=== PATIENT | male | born 1945 | race Hispanic/Latino ===

== ENCOUNTER 2017-12-18 15:17 | Emergency (ER) | payer OTHER ==
--- OUTSIDE RECORDS SUMMARY | 2017-12-18 15:19 | XMS REPORT | Clinical Summary ---
:1945 Author Organization [facility] Address [address] [place] [address] Phone Care Team Providers Name Role Phone Unavailable Primary Care Provider Unavailable Allergies No Known Allergies Current Medications Prescription Sig. Disp. Refills Start Date End Date Status metoprolol (TOPROL-XL) Take 50 mg Active 50 MG 24 hr tablet by mouth daily. omeprazole (PRILOSEC) Take 20 mg Active 20 MG by mouth capsuleIndications: daily. gastroesophageal reflux disease aspirin 81 MG EC Take 1 90 tablet 3 07/16/2017 Active tablet tablet (81 9 mg total) by mouth daily. atorvastatin (LIPITOR) Take 1 90 tablet 3 07/15/2017 Active 80 MG tablet tablet (80 9 mg total) by mouth nightly. metoprolol (TOPROL-XL) Take 1 90 tablet 3 07/16/2017 Active 50 MG 24 hr tablet tablet (50 9 mg total) by mouth daily. amoxicillin (AMOXIL) Take 500 mg 07/06/2017 Discontinued 500 MG by mouth 3 8 capsuleIndications: (three) Upper Respiratory times daily. Infection LORazepam (ATIVAN) 1 Take 1 mg by Discontinued MG tablet mouth every 8 6 (six) hours as needed for Anxiety. Active Problems Problem Noted Date TIA (transient ischemic attack) 07/12/2017 Encounters Date Type Specialty Care Team Description 07/12/2017 - Hospital Encounter Intensive Care Lazaridis, Cerebrovascular accident 07/15/2017 MD Jesus (CVA), unspecified mechanism (HCC);Hyperlipidemia, unspecified hyperlipidemia type;Essential hypertension;Received tissue plasminogen activator (t-PA) less than 24 hours prior to arrival after 12/17/2016 Immunizations Name Dates Previously Given Next Due Influenza High Dose Preservative Free IM 07/15/2017 Social History Tobacco Use Types Packs/Day Years Used Date Never Smoker Smokeless Tobacco: Never Used Tobacco Cessation: Counseling Given: No Alcohol Use Drinks/Week oz/Week Comments No Stopped drinking beer 4 years ago Sex Assigned at Date Recorded Not on file Last Filed Vital Signs Vital Sign Reading Time Taken Blood Pressure 156/83 07/15/2017 12:12 PM PRINCIPAL TRAINER Pulse 97 07/15/2017 2:10 PM PRINCIPAL TRAINER Temperature 36.3 C (97.4 F) 07/15/2017 12:12 PM PRINCIPAL TRAINER Respiratory Rate 20 07/15/2017 2:10 PM PRINCIPAL TRAINER Oxygen Saturation 96% 07/15/2017 2:10 PM PRINCIPAL TRAINER Inhaled Oxygen Concentration - - Weight 70.1 kg (154 lb 8.7 oz) 07/12/2017 11:15 AM PRINCIPAL TRAINER Height 167.6 cm (5' 6") 07/12/2017 11:15 AM PRINCIPAL TRAINER Body Mass Index 24.94 07/12/2017 11:15 AM PRINCIPAL TRAINER Plan of Treatment Not on file Results RHYTHM STRIP - SCAN (07/18/2017 1:31 PM)CBC with platelet count + automated diff (07/15/2017 3:57 AM)Only the most recent of4 resultswithin the time period is included. Component Value Ref Range WBC 5.9 3.5 - 10.5 K/L RBC 4.99 4.63 - 6.08 M/L Hemoglobin 14.0 13.7 - 17.5 GM/DL Hematocrit 42.2 40.1 - 51.0 % MCV 84.6 79.0 - 92.2 fL MCH 28.1 25.7 - 32.2 pg MCHC 33.2 32.3 - 36.5 GM/DL RDW 13.6 11.6 - 14.4 % Platelets 235 150 - 450 K/CU MM MPV 10.0 9.4 - 12.4 fL nRBC 0 0 - 0 /100 WBC % Neutros 49 % % Lymphs 36 % % Monos 8 % % Eos 6 % % Baso 1 % # Neutros 2.89 1.78 - 5.38 K/L # Lymphs 2.13 1.32 - 3.57 K/L # Monos 0.47 0.30 - 0.82 K/L # Eos 0.37 0.04 - 0.54 K/L # Baso 0.05 0.01 - 0.08 K/L Immature Granulocytes-Relative 0 0 - 1 % Specimen Performing Laboratory Blood [facility] [address] [place] [address] CBC with platelet count + automated diff (07/15/2017 3:57 AM)Only the most recent of4 resultswithin the time period is included. Specimen Performing Laboratory Blood Narrative The following orders were created for panel order CBC with platelet count + automated diff. Procedure Abnormality Status --------- ------ CBC with platelet count ...[[id number]]Final result Please view results for these tests on the individual orders. Basic Metabolic Panel (07/15/2017 3:57 AM)Only the most recent of4 resultswithin the time period is included. Component Value Ref Range Sodium 138 136 - 145 meq/L Potassium 4.0 3.5 - 5.1 meq/L Chloride 104 98 - 107 meq/L CO2 25 22 - 29 meq/L BUN 15 7 - 21 mg/dL Creatinine 0.99 0.57 - 1.25 mg/dL Glucose 111 (H) 70 - 105 mg/dL Calcium 9.3 8.4 - 10.2 mg/dL EGFR Comment: INSUFFICIENT CLINICAL DATA TO CALCULATE mL/min/1.73 sq m ESTIMATED GFR. Specimen Performing Laboratory Blood [address] [address] MR brain without IV contrast (07/14/2017 12:15 PM) Specimen Performing Laboratory [facility] Narrative FINAL REPORT MRI Brain without contrast Clinical History: Stroke Technique: MRI of the brain utilizing axial T2, FLAIR, GRE, DWI; sagittal and coronal T1-weighted images. Comparisons: CT 07/13/2017 Findings: There is no evidence of acute infarct or hemorrhage. 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 There is mild to moderate periventricular and subcortical white matter T2 hyperintensity, which is nonspecific but compatible with chronic microvascular ischemic change. There is generalized parenchymal volume loss without hydrocephalus, midline shift, or apparent mass effect. There are no extra-axial fluid collections. The craniocervical junction is preserved. The major intracranial flow-voids appear patent. There is acute on chronic left greater than right maxillary sinusitis. IMPRESSION: No evidence of acute infarct, hemorrhage, or hydrocephalus. Chronic left caudate lacunar infarct. Chronic microvascular ischemic disease with generalized parenchymal volume loss. Signed: Malaika Bergman MD Report Verified Date/Time:07/15/2017 07:45:58 Reading Location: [address] Neuro Reading Room Procedure Note Interface, External Ris In - 07/15/2017 7:48 AM PRINCIPAL TRAINER FINAL REPORT MRI Brain without contrast Clinical History: Stroke Technique: MRI of the brain utilizing axial T2, FLAIR, GRE, DWI; sagittal and coronal T1-weighted images. Comparisons: CT 07/13/2017 Findings: There is no evidence of acute infarct or hemorrhage. 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 There is mild to moderate periventricular and subcortical white matter T2 hyperintensity, which is nonspecific but compatible with chronic microvascular ischemic change. There is generalized parenchymal volume loss without hydrocephalus, midline shift, or apparent mass effect. There are no extra-axial fluid collections. The craniocervical junction is preserved. The major intracranial flow-voids appear patent. There is acute on chronic left greater than right maxillary sinusitis. IMPRESSION: No evidence of acute infarct, hemorrhage, or hydrocephalus. Chronic left caudate lacunar infarct. Chronic microvascular ischemic disease with generalized parenchymal volume loss. Signed: Malaika Bergman MD Report Verified Date/Time: 07/15/2017 07:45:58 Reading Location: [address] Neuro Reading Room MRA neck without contrast (07/14/2017 12:15 PM) Specimen Performing Laboratory [facility] [place] [facility] Narrative FINAL REPORT MRA Head CLINICAL HISTORY: Stroke TECHNIQUE: MRA of the head utilizing 3-D nkzo-ju-pmaayp technique, with 3-D reconstructions. COMPARISON: None FINDINGS: There is no evidence of intracranial aneurysm, critical stenosis, or major branch vessel occlusion. IMPRESSION: No evidence for a major [place] proximal branch vessel occlusion. MRA Neck CLINICAL HISTORY: Stroke TECHNIQUE: MRA of the neck utilizing 2-D and 3-D kujt-yq-yssmrg technique, with 3-D reconstructions. COMPARISON: None FINDINGS: The carotid arteries in the neck are patent including their bifurcations. There is antegrade flow in the vertebral arteries in the neck. IMPRESSION: No evidence of hemodynamically significant stenosis in the cervical carotid or vertebral arteries by NASCET criteria. Signed: Malaika Bergman MD Report Verified Date/Time:07/14/2017 13:30:39 Reading Location: [address] Neuro Reading Room Procedure Note Interface, External Ris In - 07/14/2017 1:32 PM PRINCIPAL TRAINER FINAL REPORT MRA Head CLINICAL HISTORY: Stroke TECHNIQUE: MRA of the head utilizing 3-D lhkj-ku-ooaekk technique, with 3-D reconstructions. COMPARISON: None FINDINGS: There is no evidence of intracranial aneurysm, critical stenosis, or major branch vessel occlusion. IMPRESSION: No evidence for a major [place] proximal branch vessel occlusion. MRA Neck CLINICAL HISTORY: Stroke TECHNIQUE: MRA of the neck utilizing 2-D and 3-D sedy-ph-nmqbuz technique, with 3-D reconstructions. COMPARISON: None FINDINGS: The carotid arteries in the neck are patent including their bifurcations. There is antegrade flow in the vertebral arteries in the neck. IMPRESSION: No evidence of hemodynamically significant stenosis in the cervical carotid or vertebral arteries by NASCET criteria. Signed: Malaika Bergman MD Report Verified Date/Time: 07/14/2017 13:30:39 Reading Location: [address] Neuro Reading Room MRA head without contrast (07/14/2017 12:15 PM) Specimen Performing Laboratory [facility] Narrative FINAL REPORT MRA Head CLINICAL HISTORY: Stroke TECHNIQUE: MRA of the head utilizing 3-D zrly-pd-vsgakm technique, with 3-D reconstructions. COMPARISON: None FINDINGS: There is no evidence of intracranial aneurysm, critical stenosis, or major branch vessel occlusion. IMPRESSION: No evidence for a major [place] proximal branch vessel occlusion. MRA Neck CLINICAL HISTORY: Stroke TECHNIQUE: MRA of the neck utilizing 2-D and 3-D iuro-er-ovenmf technique, with 3-D reconstructions. COMPARISON: None FINDINGS: The carotid arteries in the neck are patent including their bifurcations. There is antegrade flow in the vertebral arteries in the neck. IMPRESSION: No evidence of hemodynamically significant stenosis in the cervical carotid or vertebral arteries by NASCET criteria. Signed: Malaika Bergman MD Report Verified Date/Time:07/14/2017 13:30:39 Reading Location: [address] Neuro Reading Room Procedure Note Interface, External Ris In - 07/14/2017 1:32 PM PRINCIPAL TRAINER FINAL REPORT MRA Head CLINICAL HISTORY: Stroke TECHNIQUE: MRA of the head utilizing 3-D dxpt-ai-axheyn technique, with 3-D reconstructions. COMPARISON: None FINDINGS: There is no evidence of intracranial aneurysm, critical stenosis, or major branch vessel occlusion. IMPRESSION: No evidence for a major [place] proximal branch vessel occlusion. MRA Neck CLINICAL HISTORY: Stroke TECHNIQUE: MRA of the neck utilizing 2-D and 3-D lnzs-dy-vqmcep technique, with 3-D reconstructions. COMPARISON: None FINDINGS: The carotid arteries in the neck are patent including their bifurcations. There is antegrade flow in the vertebral arteries in the neck. IMPRESSION: No evidence of hemodynamically significant stenosis in the cervical carotid or vertebral arteries by NASCET criteria. Signed: Malaika Bergman MD Report Verified Date/Time: 07/14/2017 13:30:39 Reading Location: [address] Neuro Reading Room brain without IV contrast portable (07/13/2017 7:44 PM) Specimen Performing Laboratory [place] [facility] [place] Narrative FINAL REPORT CT head without contrast INDICATION: 24 hours post tPA. TECHNIQUE: Axial noncontrast CT images through the head were obtained. This exam was performed according to our departmental dose optimization program which includes automated exposure control, adjustment of the mA and/or kV according to patient size and/or use of iterative reconstruction technique. COMPARISON: None available FINDINGS: There is no hematoma, extra-axial collection, or mass effect. Small volume left centrum semiovale and looney radiata microvascular ischemia is potentially recent superimposed on other chronic appearing microvascular changes. No acute territorial infarct is evident on CT. Please note that CT is insensitive for early or small infarcts. Generalized volume loss and vascular calcifications are noted. There is no hydrocephalus or midline shift. There is multifocal sinus mucosal disease with maxillary and right frontal sinus air-fluid levels. The mastoid air cells are well aerated. The globes appear proptotic. The calvarium is intact. IMPRESSION: No evident acute intracranial hemorrhage post tPA. Left looney radiata and striatocapsular microvascular ischemia, potentially recent, superimposed on chronic appearing microvascular disease. Advise MRI there is no contraindication. Findings suggesting acute on chronic multifocal sinusitis. Additional chronic and involutional findings as discussed. Signed: Bharat Batres MD Report Verified Date/Time:07/13/2017 20:35:58 Reading Location: [facility] Radiology Reading Room Procedure Note Interface, External Ris In - 07/13/2017 8:38 PM PRINCIPAL TRAINER FINAL REPORT CT head without contrast INDICATION: 24 hours post tPA. TECHNIQUE: Axial noncontrast CT images through the head were obtained. This exam was performed according to our departmental dose optimization program which includes automated exposure control, adjustment of the mA and/or kV according to patient size and/or use of iterative reconstruction technique. COMPARISON: None available FINDINGS: There is no hematoma, extra-axial collection, or mass effect. Small volume left centrum semiovale and looney radiata microvascular ischemia is potentially recent superimposed on other chronic appearing microvascular changes. No acute territorial infarct is evident on CT. Please note that CT is insensitive for early or small infarcts. Generalized volume loss and vascular calcifications are noted. There is no hydrocephalus or midline shift. There is multifocal sinus mucosal disease with maxillary and right frontal sinus air-fluid levels. The mastoid air cells are well aerated. The globes appear proptotic. The calvarium is intact. IMPRESSION: No evident acute intracranial hemorrhage post tPA. Left looney radiata and striatocapsular microvascular ischemia, potentially recent, superimposed on chronic appearing microvascular disease. Advise MRI there is no contraindication. Findings suggesting acute on chronic multifocal sinusitis. Additional chronic and involutional findings as discussed. Signed: Bharat Batres MD Report Verified Date/Time: 07/13/2017 20:35:58 Reading Location: [facility] Radiology Reading Room Vitamin B12 and Folate (07/13/2017 3:48 AM) Component Value Ref Range Vitamin B12 391 213 - 816 pg/mL Folate 15.4 >=7.0 ng/mL Specimen Performing Laboratory Blood [address] [address] Troponin I (07/13/2017 3:48 AM)Only the most recent of3 resultswithin the time period is included. Component Value Ref Range Troponin I 0.01 0.00 - 0.03 ng/mL Specimen Performing Laboratory Blood [address] [address] Narrative Troponin I (TnI) levels must be interpreted in the context of the presenting symptoms and the clinical findings. Elevated TnI levels indicate myocardial damage, but are not specific for ischemic heart disease. Elevated TnI levels are seen in patients with other cardiac conditions (including myocarditis and congestive heart failure), and slight TnI elevations occur in patients with other conditions, including sepsis, renal failure, acidosis, acute neurological disease, and persistent tachyarrhythmia. Fasting Hemoglobin A1c - Fasting (07/13/2017 3:48 AM) Component Value Ref Range Hemoglobin A1C 5.7 4.3 - 6.1 % Specimen Performing Laboratory Blood [address] [address] Narrative Fasting Fasting lipid panel (07/13/2017 3:48 AM) Component Value Ref Range Triglycerides 150 mg/dL Cholesterol 201 mg/dL HDL 36 mg/dL LDL Calculated 135 mg/dL Specimen Performing Laboratory Blood [address] [address] Narrative Triglyceride Reference Range: Low Risk <150 [id number] High Risk 200-499 Very High Risk>=500 Cholesterol Reference Range: Low Risk <200 [id number] High Risk>240 HDL Cholesterol Reference Range: Low Risk >=60 High Risk <40 LDL Cholesterol Reference Range: Optimal<100 Near Wiazkiz435-451 [id number] Ssad707-309 Very High >=190 Fasting ECHOCARDIOGRAM REPORT - SCAN (07/12/2017 4:34 PM)RPR (07/12/2017 2:21 PM) Component Value Ref Range RPR Nonreactive Nonreactive Specimen Performing Laboratory Blood - Arm, Right [address] [address] aPTT (07/12/2017 2:21 PM) Component Value Ref Range PTT 31.5 22.5 - 36.0 seconds Specimen Performing Laboratory Blood - Arm, [address] [address] Prothrombin time/INR (07/12/2017 2:21 PM) Component Value Ref Range Protime 16.7 (H) 11.7 - 14.7 seconds INR 1.4 <=5.9 Specimen Performing Laboratory Blood - Arm, [address] [address] Narrative RECOMMENDED COUMADIN/WARFARIN INR THERAPY RANGES STANDARD DOSE: 2.0 - 3.0 Includes: PROPHYLAXIS for venous thrombosis, systemic embolization; TREATMENT for venous thrombosis and/or pulmonary embolus. HIGH RISK: Target INR is 2.5-3.5 for patients with mechanical heart valves. Hepatic function panel (07/12/2017 2:21 PM) Component Value Ref Range Protein, Total 8.0 6.0 - 8.3 gm/dL Albumin 4.1 3.5 - 5.0 g/dL Total Bilirubin 0.6 0.2 - 1.2 mg/dL Bilirubin, Direct 0.2 0.1 - 0.5 mg/dL Alkaline Phosphatase 90 40 - 150 U/L AST 36 (H) 5 - 34 U/L ALT 43 6 - 55 U/L Specimen Performing Laboratory Blood - Arm, [address] [address] Transthoracic 2D echo w/ doppler (cw/pw/color) (07/12/2017 1:00 PM) Component Value Ref Range Ejection Fraction Specimen Performing Laboratory [facility] ECHO HEARTLAB MKCKESSON CPACS Narrative Transthoracic Echocardiography Report (TTE) Demographics Patient NameDAMIÁN BOONE Date of Study2017 Male Visit [id number] Unknown Room Number 7514 Number Date of 1945Referring Nathan Villagomez Age 72 year(s)SonographerOscar ANGELES Sorto Plumbing Manager Estephania Baker, Interpreting Hung Banegas Procedure Type of Study TTE procedure:2DECHO W DOPPLER(CW/PW/COLOR) (Routine) Indications:Suspected cardiac source of emboli. Clinical History HGB 13.8 HCT 40.3 % Stroke Hypertension Contrast Medium: Definity. Amount - 2 ml Height: 66 inches Weight: 69.85 kg (154 lbs) BSA: 1.79 m^2 BMI: 24.86 kg/m^2 HR: 80 bpm BP: 171/102 mmHg Summary Global LV systolic function normal . No evidence of LV hypertrophy. LV endocardium is well visualized with IV ultrasound enhancing agent. LA size is normal (16-34 ml/m2) . Grade 1 diastolic dysfunction (impaired relaxation and low-normal LA pressure). IV saline contrast injection demostrates a PFO (patent foramen ovale) at rest and post Valsalva . Estimated peak systolic PA pressure is 30-35 mmHg . The estimated RA pressure by IVC dynamics 0-5mmHg . The right ventricular chamber size and systolic function are within normal limits. Mild aortic regurgitation. Previous Study No prior exam available for comparison. Signature Findings Technical Quality: Technically adequate exam. Rhythm/BPRegular sinus rhythm during the exam. Left Ventricle LV endocardium is well visualized with IV ultrasound enhancing agent. The left ventricle is chamber size (by vol index) is normal (male - LVED vol - 34-74ml/m2). No evidence of LV hypertrophy. All of the LV segments contract normally . Global LV systolic function normal . LVEF by Christopher's method of disk assessment is normal (>60%) . The LVEF was measured using Christopher's bi-plane method of disk . Grade 1 diastolic dysfunction (impaired relaxation and low-normal LA pressure). Left AtriumLA size is normal (16-34 ml/m2) . Right VentricleThe right ventricular chamber size and systolic function are within normal limits. Right Atrium RA cavity size is normal . Atrial SeptumIV saline contrast injection demostrates a PFO (patent foramen ovale) at rest and post Valsalva . Aortic Valve Mild AoV cusp thickening. Mild aortic regurgitation. Mitral Valve Mild MV leaflet thickening. Mild mitral regurgitation. Tricuspid ValveTV structure is normal. Mild tricuspid regurgitation. Estimated peak systolic PA pressure is 30-35 mmHg . Pulmonic Valve Mild pulmonary regurgitation. Normal PV structure appears normal by available views. AortaAortic root size (SInus of Valsalva diameter) is normal . PericardiumNo pericardial effusion is visualized. IVC/SVC/PA/PV/PleuralThe inferior vena cava is partially visualized. The inferior vena cava size is normal . The estimated RA pressure by IVC dynamics 0-5mmHg . Chambers/Structures Left Atrium LA Volume: 52.32 ml LA Area: 18.64 cm^ 2 LA Vol. Index: 29 ml/m^2 Left Ventricle LVIDd: 4.05 cm LVIDs: 2.64 cm LV Septum Diastolic: 1.07 cm LV PW Diastolic: 0.92 cmLV FS: 34.8 % LVEDV Christopher's:88.71 ml LVESV Christopher's:30.03 mlLVEDVI: 50 ml/ m^2 LVEF Christopher's: 66.1 %LVESVI: 17 ml/m^2 LVOT Diameter: 2.11 cm Aorta Ao Root S of Erika.: 2.55 cm Doppler/Quantitative Measurements Mitral Valve MV Peak E-Wave: 0.6 m/s MV Peak A-Wave: 0.78 m/s E/ A Ratio: 0.77 Peak Gradient: 1.46 mmHg Deceleration Time: 228.8 msec MV Doug. Peak: Tissue Doppler E' Lateral Velocity: 0.12 m/s A' Lateral Velocity: 0.14 m/s E/ E': 4.93 Aortic Valve Peak Velocity: 1.14 m/sMean Velocity: 0.84 m/s Peak Gradient: 5.2 mmHgMean Gradient: 3.17 mmHg AV Area (continuity): 3.07 cm^2 AV VTI: 24.3 cm AV DVI: 0.88 LVOT Peak Velocity: 1.02 m/s Peak Gradient: 4.2 mmHg Mean Velocity: 0.7 m/sMean Gradient: 2.21 mmHg LVOT Diameter: 2.11 cmLVOT VTI: 21.37 cm LVOT Area: 3.5 cm^2 LVOT SV:74.69 ml LVOT CO: 5.97 l/min LVOT CI: 3.34 l/min/m^2 Tricuspid Valve TR Velocity: 2.86 m/s TR Gradient: 32.76 mmHg Procedure Note Interface, External Ris In - 07/12/2017 4:00 PM PRINCIPAL TRAINER Transthoracic Echocardiography Report (TTE) Demographics Patient Name DAMIÁN BOONE Date of Study 07/12/2017 Gender Male Visit Number [id number] Race Unknown Room Number 7514 Number Date of 1945 Referring Physician Jesus Villagomez Age 72 year(s) Shuffle Board Operator Tray Sorto, [facility] Plumbing Manager Estephania Baker, Interpreting Lorie Bright [facility] Physician Procedure Type of Study TTE procedure:2DECHO W DOPPLER(CW/PW/COLOR) (Routine) Indications:Suspected cardiac source of emboli. Clinical History HGB 13.8 HCT 40.3 % Stroke Hypertension Contrast Medium: Definity. Amount - 2 ml Height: 66 inches Weight: 69.85 kg (154 lbs) BSA: 1.79 m^2 BMI: 24.86 kg/m^2 HR: 80 bpm BP: 171/102 mmHg Summary Global LV systolic function normal . No evidence of LV hypertrophy. LV endocardium is well visualized with IV ultrasound enhancing agent. LA size is normal (16-34 ml/m2) . Grade 1 diastolic dysfunction (impaired relaxation and low-normal LA pressure). IV saline contrast injection demostrates a PFO (patent foramen ovale) at rest and post Valsalva . Estimated peak systolic PA pressure is 30-35 mmHg . The estimated RA pressure by IVC dynamics 0-5mmHg . The right ventricular chamber size and systolic function are within normal limits. Mild aortic regurgitation. Previous Study No prior exam available for comparison. Signature Findings Technical Quality: Technically adequate exam. Rhythm/BP Regular sinus rhythm during the exam. Left Ventricle LV endocardium is well visualized with IV ultrasound enhancing agent. The left ventricle is chamber size (by vol index) is normal (male - LVED vol - 34-74ml/m2). No evidence of LV hypertrophy. All of the LV segments contract normally . Global LV systolic function normal . LVEF by Christopher's method of disk assessment is normal (>60%) . The LVEF was measured using Christopher's bi-plane method of disk . Grade 1 diastolic dysfunction (impaired relaxation and low-normal LA pressure). Left Atrium LA size is normal (16-34 ml/m2) . Right Ventricle The right ventricular chamber size and systolic function are within normal limits. Right Atrium RA cavity size is normal . Atrial Septum IV saline contrast injection demostrates a PFO (patent foramen ovale) at rest and post Valsalva . Aortic Valve Mild AoV cusp thickening. Mild aortic regurgitation. Mitral Valve Mild MV leaflet thickening. Mild mitral regurgitation. Tricuspid Valve TV structure is normal. Mild tricuspid regurgitation. Estimated peak systolic PA pressure is 30-35 mmHg . Pulmonic Valve Mild pulmonary regurgitation. Normal PV structure appears normal by available views. Aorta Aortic root size (SInus of Valsalva diameter) is normal . Pericardium No pericardial effusion is visualized. IVC/SVC/PA/PV/Pleural The inferior vena cava is partially visualized. The inferior vena cava size is normal . The estimated RA pressure by IVC dynamics 0-5mmHg . Chambers/Structures Left Atrium LA Volume: 52.32 ml LA Area: 18.64 cm^2 LA Vol. Index: 29 ml/m^2 Left Ventricle LVIDd: 4.05 cm LVIDs: 2.64 cm LV Septum Diastolic: 1.07 cm LV PW Diastolic: 0.92 cm LV FS: 34.8 % LVEDV Christopher's:88.71 ml LVESV Christopher's:30.03 ml LVEDVI: 50 ml/m^2 LVEF Christopher's: 66.1 % LVESVI: 17 ml/m^2 LVOT Diameter: 2.11 cm Aorta Ao Root S of Erika.: 2.55 cm Doppler/Quantitative Measurements Mitral Valve MV Peak E-Wave: 0.6 m/s MV Peak A-Wave: 0.78 m/s E/A Ratio: 0.77 Peak Gradient: 1.46 mmHg Deceleration Time: 228.8 msec MV Doug. Peak: Tissue Doppler E' Lateral Velocity: 0.12 m/s A' Lateral Velocity: 0.14 m/s E/E': 4.93 Aortic Valve Peak Velocity: 1.14 m/s Mean Velocity: 0.84 m/s Peak Gradient: 5.2 mmHg Mean Gradient: 3.17 mmHg AV Area (continuity): 3.07 cm^2 AV VTI: 24.3 cm AV DVI: 0.88 LVOT Peak Velocity: 1.02 m/s Peak Gradient: 4.2 mmHg Mean Velocity: 0.7 m/s Mean Gradient: 2.21 mmHg LVOT Diameter: 2.11 cm LVOT VTI: 21.37 cm LVOT Area: 3.5 cm^2 LVOT SV:74.69 ml LVOT CO: 5.97 l/min LVOT CI: 3.34 l/min/m^2 Tricuspid Valve TR Velocity: 2.86 m/s TR Gradient: 32.76 mmHg after 12/17/2016
--- OUTSIDE RECORDS SUMMARY | 2017-12-18 15:20 | XMS REPORT ---
:1945 [facility] Address [address] [place] [address] Dr. S[address]iqu[address] [place] [address] Care Team Providers Name Role Phone JANNIE YUEN Unavailable Unavailable Problems This patient has no known problems. Allergies, Adverse Reactions, Alerts This patient has no known allergies or adverse reactions. Medications This patient has no known medications. Results Test Description Test Time Test Comments Text Results Atomic Results Result Comments MR, BRAIN, 2017-07-15 Reason for FINAL REPORT PATIENT WITHOUT CONTRAST 07:45:00 exam:->StrokeWhat is the ID: [id number] MRI patient's sedation Brain without contrast requirement?->No Sedation Clinical History: Stroke Technique: MRI of the [...] generalized parenchymal volume loss. Signed: Malaika Bergman MDReport Verified Date/Time: 07/15/2017 07:45:58 Reading Location: [facility] B1 C013V Neuro Reading Room C METABOLIC PANEL 2017-07-15 04:59:00 Test Item Value Reference Range Comments SODIUM (BEAKER) (test 138 meq/L 136-145 zzrd=687) POTASSIUM (BEAKER) (test 4.0 meq/L 3.5-5.1 rrcg=449) CHLORIDE (BEAKER) (test 104 meq/L 98-107 phar=198) CO2 (BEAKER) (test kyqz=996) 25 meq/L 22-29 BLOOD UREA NITROGEN (BEAKER) 15 mg/dL 7-21 (test geyi=448) CREATININE (BEAKER) (test 0.99 mg/dL 0.57-1.25 nhab=070) GLUCOSE RANDOM (BEAKER) 111 mg/dL 70-105 (test wsrq=678) CALCIUM (BEAKER) (test 9.3 mg/dL 8.4-10.2 oelr=949) EGFR (BEAKER) (test mL/min/1.73 sq m INSUFFICIENT CLINICAL DATA TO dron=2390) CALCULATE ESTIMATED GFR. CBC W/PLT COUNT & AUTO [id number] 04:37:00 Test Item Value Reference Range Comments WHITE BLOOD CELL COUNT (BEAKER) (test rnxq=564) 5.9 K/ L 3.5-10.5 RED BLOOD CELL COUNT (BEAKER) (test ylct=670) 4.99 M/ L 4.63-6.08 HEMOGLOBIN (BEAKER) (test qebv=236) 14.0 GM/DL 13.7-17.5 HEMATOCRIT (BEAKER) (test vyzj=231) 42.2 % 40.1-51.0 MEAN CORPUSCULAR VOLUME (BEAKER) (test zzcx=360) 84.6 fL 79.0-92.2 MEAN CORPUSCULAR HEMOGLOBIN (BEAKER) (test 28.1 pg 25.7-32.2 tkkd=934) MEAN CORPUSCULAR HEMOGLOBIN CONC (BEAKER) (test 33.2 GM/DL 32.3-36.5 kupp=665) RED CELL DISTRIBUTION WIDTH (BEAKER) (test 13.6 % 11.6-14.4 uiwa=552) PLATELET COUNT (BEAKER) (test dnjd=830) 235 K/CU MM 150-450 MEAN PLATELET VOLUME (BEAKER) (test hmdn=420) 10.0 fL 9.4-12.4 NUCLEATED RED BLOOD CELLS (BEAKER) (test 0 /100 WBC 0-0 jxmv=024) NEUTROPHILS RELATIVE PERCENT (BEAKER) (test 49 % thbc=086) LYMPHOCYTES RELATIVE PERCENT (BEAKER) (test 36 % bbgs=892) MONOCYTES RELATIVE PERCENT (BEAKER) (test 8 % vdin=421) EOSINOPHILS RELATIVE PERCENT (BEAKER) (test 6 % hafx=414) BASOPHILS RELATIVE PERCENT (BEAKER) (test 1 % xoow=565) NEUTROPHILS ABSOLUTE COUNT (BEAKER) (test 2.89 K/ L 1.78-5.38 bvph=792) LYMPHOCYTES ABSOLUTE COUNT (BEAKER) (test 2.13 K/ L 1.32-3.57 aacc=040) MONOCYTES ABSOLUTE COUNT (BEAKER) (test 0.47 K/ L 0.30-0.82 zqis=063) EOSINOPHILS ABSOLUTE COUNT (BEAKER) (test 0.37 K/ L 0.04-0.54 nbzk=583) BASOPHILS ABSOLUTE COUNT (BEAKER) (test 0.05 K/ L 0.01-0.08 hoyv=805) IMMATURE GRANULOCYTES-RELATIVE PERCENT (BEAKER) 0 % 0-1 (test ifci=5102) MR, MRA, BRAIN, WITHOUT [id number] 13:30:00Reason for exam:-> StrokeWhat is the patient's sedation requirement?->No SedationFINAL REPORT MRA Head CLINICAL HISTORY: Stroke TECHNIQUE: MRA of the head utilizing 3-D smyc-tp-kxcdpd technique, with 3-D reconstructions. COMPARISON: None FINDINGS: There is noevidence of intracranial aneurysm, critical stenosis, or major branch vessel occlusion. IMPRESSION: No evidence for a major [place] of [place] proximal branch vessel occlusion. MRA Neck CLINICAL HISTORY: Stroke TECHNIQUE: MRA of the neck utilizing 2-D and 3-D time- of-flight technique, with 3-D reconstructions. COMPARISON: None FINDINGS: The carotid arteries in the neck are patent including their bifurcations. There is antegrade flow in the vertebral arteries in the neck. IMPRESSION: No evidence of hemodynamically significant stenosis in the cervical carotid or vertebral arteries by NASCET criteria. Signed: Malaika Bergman MDReport Verified Date/Time: 07/14/2017 13:30:39 Reading Location: [facility] C013V Neuro Reading Room MR, MRA, NECK, WITHOUT IV [id number] 13:30:00FINAL REPORT MRA Head CLINICAL HISTORY: Stroke TECHNIQUE: MRA of the head utilizing 3-D nnxh-em-vxskbx technique, with 3-D reconstructions. COMPARISON: None FINDINGS: There is noevidence of intracranial aneurysm, critical stenosis, or major branch vessel occlusion. IMPRESSION: No evidence for a major [place] of [place] proximal branch vessel occlusion. MRA Neck CLINICAL HISTORY: Stroke TECHNIQUE: MRA of the neck utilizing 2-D and 3-D rhbd-xa-nhzyum technique, with 3-D reconstructions. COMPARISON: None FINDINGS: The carotid arteries in the neck are patent including their bifurcations. There is antegrade flow in the vertebral arteries in the neck. IMPRESSION: No evidence of hemodynamically significant stenosis in the cervical carotid or vertebral arteries by NASCET criteria. Signed: Malaika Bergman MDReport Verified Date/Time: 07/14/2017 13:30: 39 Reading Location: [address] Neuro Reading Room BASI METABOLIC [id number] 04:42:00 Test Item Value Reference Range Comments SODIUM (BEAKER) (test 136 meq/L 136-145 gkgd=427) POTASSIUM (BEAKER) (test 3.8 meq/L 3.5-5.1 czzk=320) CHLORIDE (BEAKER) (test 105 meq/L 98-107 uuvj=368) CO2 (BEAKER) (test 24 meq/L 22-29 zarv=965) BLOOD UREA NITROGEN 12 mg/dL 7-21 (BEAKER) (test gfew=524) CREATININE (BEAKER) (test 1.00 mg/dL 0.57-1.25 kvmc=843) GLUCOSE RANDOM (BEAKER) 105 mg/dL 70-105 (test imfe=375) CALCIUM (BEAKER) (test 9.0 mg/dL 8.4-10.2 ydqi=963) EGFR (BEAKER) (test mL/min/1.73 sq m INSUFFICIENT CLINICAL DATA jhnl=9640) TO CALCULATE ESTIMATED GFR. CBC W/PLT COUNT & AUTO [id number] 04:00:00 Test Item Value Reference Range Comments WHITE BLOOD CELL COUNT (BEAKER) (test ejfv=478) 5.6 K/ L 3.5-10.5 RED BLOOD CELL COUNT (BEAKER) (test onzo=946) 4.94 M/ L 4.63-6.08 HEMOGLOBIN (BEAKER) (test wmrc=120) 13.9 GM/DL 13.7-17.5 HEMATOCRIT (BEAKER) (test vhjp=234) 41.3 % 40.1-51.0 MEAN CORPUSCULAR VOLUME (BEAKER) (test jzuq=599) 83.6 fL 79.0-92.2 MEAN CORPUSCULAR HEMOGLOBIN (BEAKER) (test 28.1 pg 25.7-32.2 hend=555) MEAN CORPUSCULAR HEMOGLOBIN CONC (BEAKER) (test 33.7 GM/DL 32.3-36.5 nffu=175) RED CELL DISTRIBUTION WIDTH (BEAKER) (test 13.5 % 11.6-14.4 chjr=255) PLATELET COUNT (BEAKER) (test iitr=258) 222 K/CU MM 150-450 MEAN PLATELET VOLUME (BEAKER) (test bwvh=873) 10.1 fL 9.4-12.4 NUCLEATED RED BLOOD CELLS (BEAKER) (test 0 /100 WBC 0-0 zmsi=297) NEUTROPHILS RELATIVE PERCENT (BEAKER) (test 48 % asew=189) LYMPHOCYTES RELATIVE PERCENT (BEAKER) (test 39 % qpuv=520) MONOCYTES RELATIVE PERCENT (BEAKER) (test 8 % ulex=543) EOSINOPHILS RELATIVE PERCENT (BEAKER) (test 4 % agtb=399) BASOPHILS RELATIVE PERCENT (BEAKER) (test 1 % hxgl=523) NEUTROPHILS ABSOLUTE COUNT (BEAKER) (test 2.71 K/ L 1.78-5.38 hghr=692) LYMPHOCYTES ABSOLUTE COUNT (BEAKER) (test 2.16 K/ L 1.32-3.57 myzc=778) MONOCYTES ABSOLUTE COUNT (BEAKER) (test 0.45 K/ L 0.30-0.82 wvvs=262) EOSINOPHILS ABSOLUTE COUNT (BEAKER) (test 0.21 K/ L 0.04-0.54 macu=737) BASOPHILS ABSOLUTE COUNT (BEAKER) (test 0.05 K/ L 0.01-0.08 akrn=217) IMMATURE GRANULOCYTES-RELATIVE PERCENT (BEAKER) 0 % 0-1 (test xamq=1964) CT BRAIN WITHOUT IV CONTRAST - [id number] 20:35:00Reason for exam:-> 24h post tPAFINAL REPORT CT head without contrast INDICATION: 24 hours post tPA. TECHNIQUE: Axial noncontrast CT images through the head were obtained. This exam was performed according to our departmental dose optimization program which includes automated exposure control, adjustment of the mA and/or kV according to patient size and/or use of iterative reconstruction technique. COMPARISON: None available FINDINGS:There is no hematoma, extra-axial collection, or mass [...] looney radiata and striatocapsular microvascular ischemia, potentially recent,superimposed on chronic appearing microvascular disease. Advise MRI there is no contraindication. Findings suggesting acute on chronic multifocal sinusitis. Additional chronic and involutional findingsas discussed. Signed: Bharat Batres MDReport Verified Date/Time: 07/13/2017 20:35:58 ReadingLocation: [facility] Reading Room Electronically signed by : BHARAT BATRES M.D.on 07/13/2017 08:35 [id number] 18:14:00 Test Item Value Reference Range Comments RPR SCREEN (BEAKER) (test sfuy=919) Nonreactive Nonreactive HEMOGLOBIN [id number] 11:35:00 Test Item Value Reference Range Comments HEMOGLOBIN A1C (BEAKER) (test ekma=178) 5.7 % 4.3-6.1 FastingCBC W/PLT COUNT & AUTO [id number] 05:59:00 Test Item Value Reference Range Comments WHITE BLOOD CELL COUNT (BEAKER) (test rkoh=083) 7.9 K/ L 3.5-10.5 RED BLOOD CELL COUNT (BEAKER) (test lguk=816) 4.86 M/ L 4.63-6.08 HEMOGLOBIN (BEAKER) (test oynu=937) 13.5 GM/DL 13.7-17.5 HEMATOCRIT (BEAKER) (test lsoy=872) 40.7 % 40.1-51.0 MEAN CORPUSCULAR VOLUME (BEAKER) (test ximq=975) 83.7 fL 79.0-92.2 MEAN CORPUSCULAR HEMOGLOBIN (BEAKER) (test 27.8 pg 25.7-32.2 sgon=340) MEAN CORPUSCULAR HEMOGLOBIN CONC (BEAKER) (test 33.2 GM/DL 32.3-36.5 gzim=524) RED CELL DISTRIBUTION WIDTH (BEAKER) (test 13.5 % 11.6-14.4 orlk=310) PLATELET COUNT (BEAKER) (test xktp=338) 222 K/CU MM 150-450 MEAN PLATELET VOLUME (BEAKER) (test zwij=992) 10.2 fL 9.4-12.4 NUCLEATED RED BLOOD CELLS (BEAKER) (test 0 /100 WBC 0-0 dyyq=489) NEUTROPHILS RELATIVE PERCENT (BEAKER) (test 81 % jfda=060) LYMPHOCYTES RELATIVE PERCENT (BEAKER) (test 13 % piko=387) MONOCYTES RELATIVE PERCENT (BEAKER) (test 5 % kimk=643) EOSINOPHILS RELATIVE PERCENT (BEAKER) (test 1 % lecy=519) BASOPHILS RELATIVE PERCENT (BEAKER) (test 0 % rmjh=502) NEUTROPHILS ABSOLUTE COUNT (BEAKER) (test 6.34 K/ L 1.78-5.38 edji=779) LYMPHOCYTES ABSOLUTE COUNT (BEAKER) (test 1.00 K/ L 1.32-3.57 yiie=962) MONOCYTES ABSOLUTE COUNT (BEAKER) (test 0.42 K/ L 0.30-0.82 qweg=468) EOSINOPHILS ABSOLUTE COUNT (BEAKER) (test 0.06 K/ L 0.04-0.54 rfgx=110) BASOPHILS ABSOLUTE COUNT (BEAKER) (test 0.03 K/ L 0.01-0.08 ksff=221) IMMATURE GRANULOCYTES-RELATIVE PERCENT (BEAKER) 0 % 0-1 (test kqnn=4735) VITAMIN B12 AND [id number] 05:24:00 Test Item Value Reference Range Comments VITAMIN B12 (BEAKER) (test oolf=345) 391 pg/mL 213-816 FOLATE (BEAKER) (test xxkd=142) 15.4 ng/mL >=7.0 BASIC METABOLIC [id number] 05:07:00 Test Item Value Reference Range Comments SODIUM (BEAKER) (test 133 meq/L 136-145 opze=839) POTASSIUM (BEAKER) (test 3.9 meq/L 3.5-5.1 sjsa=828) CHLORIDE (BEAKER) (test 103 meq/L 98-107 bazd=677) CO2 (BEAKER) (test 22 meq/L 22-29 odmq=444) BLOOD UREA NITROGEN 11 mg/dL 7-21 (BEAKER) (test npmf=910) CREATININE (BEAKER) (test 1.02 mg/dL 0.57-1.25 onez=870) GLUCOSE RANDOM (BEAKER) 129 mg/dL 70-105 (test hcpo=711) CALCIUM (BEAKER) (test 8.7 mg/dL 8.4-10.2 cbog=450) EGFR (BEAKER) (test mL/min/1.73 sq m INSUFFICIENT CLINICAL DATA jtgr=7343) TO CALCULATE ESTIMATED GFR. FastingLIPID [id number] 05:01:00 Test Item Value Reference Range Comments TRIGLYCERIDES (BEAKER) (test dyki=857) 150 mg/dL CHOLESTEROL (BEAKER) (test kfdn=296) 201 mg/dL HDL CHOLESTEROL (BEAKER) (test ilny=811) 36 mg/dL LDL CHOLESTEROL CALCULATED (BEAKER) (test 135 mg/dL omje=828) Triglyceride Reference Range: Low Risk <150 Borderline 150- 199 High Risk 200-499 Very High Risk >=500Cholesterol Reference Range: Low Risk <200 Borderline 200-239 High Risk > 240HDL Cholesterol Reference Range: Low Risk >=60 High Risk <40LDL Cholesterol Reference Range: Optimal <100 Near Optimal 100-129 Borderline 130-159 High 160-189 Very High >=190 FastingTROPONIN [id number] 04:55:00 Test Item Value Reference Range Comments TROPONIN I (BEAKER) (test zlsi=875) 0.01 ng/mL 0.00-0.03 Troponin I (TnI) levels must be interpreted [...] failure, acidosis, acute neurological disease, and persistent tachyarrhythmia.FastingTROPONIN [id number] 23:16:00 Test Item Value Reference Range Comments TROPONIN I (BEAKER) (test vyaz=559) 0.02 ng/mL 0.00-0.03 Troponin I (TnI) levels must be interpreted [...] failure, acidosis, acute neurological disease, and persistent tachyarrhythmia.TROPONIN [id number] 15:14:00 Test Item Value Reference Range Comments TROPONIN I (BEAKER) (test bpzy=221) 0.01 ng/mL 0.00-0.03 Troponin I (TnI) levels must be interpreted [...] failure, acidosis, acute neurological disease, and persistent tachyarrhythmia.BASIC METABOLIC [id number] 15:11:00 Test Item Value Reference Range Comments SODIUM (BEAKER) (test 136 meq/L 136-145 qfem=518) POTASSIUM (BEAKER) (test 4.3 meq/L 3.5-5.1 qleb=587) CHLORIDE (BEAKER) (test 102 meq/L 98-107 rcxh=854) CO2 (BEAKER) (test 27 meq/L 22-29 vldk=170) BLOOD UREA NITROGEN 10 mg/dL 7-21 (BEAKER) (test clpe=474) CREATININE (BEAKER) (test 0.95 mg/dL 0.57-1.25 skia=570) GLUCOSE RANDOM (BEAKER) 104 mg/dL 70-105 (test xske=385) CALCIUM (BEAKER) (test 8.9 mg/dL 8.4-10.2 lbwr=390) EGFR (BEAKER) (test mL/min/1.73 sq m INSUFFICIENT CLINICAL DATA vyho=0776) TO CALCULATE ESTIMATED GFR. HEPATIC FUNCTION [id number] 15:08:00 Test Item Value Reference Range Comments TOTAL PROTEIN (BEAKER) (test ffsc=773) 8.0 gm/dL 6.0-8.3 ALBUMIN (BEAKER) (test kcnh=8769) 4.1 g/dL 3.5-5.0 BILIRUBIN TOTAL (BEAKER) (test uvfb=181) 0.6 mg/dL 0.2-1.2 BILIRUBIN DIRECT (BEAKER) (test xgkj=541) 0.2 mg/dL 0.1-0.5 ALKALINE PHOSPHATASE (BEAKER) (test zjrw=940) 90 U/L 40-150 AST (SGOT) (BEAKER) (test jcza=090) 36 U/L 5-34 ALT (SGPT) (BEAKER) (test jbdy=176) 43 U/L 6-55 [id number] 14:44:00 Test Item Value Reference Range Comments PARTIAL THROMBOPLASTIN TIME (BEAKER) (test 31.5 seconds 22.5-36.0 ruyn=526) PROTHROMBIN [id number] 14:43:00 Test Item Value Reference Range Comments PROTIME (BEAKER) (test arhc=486) 16.7 seconds 11.7-14.7 INR (BEAKER) (test qxsk=026) 1.4 <=5.9 RECOMMENDED COUMADIN/WARFARIN INR THERAPY RANGESSTANDARD DOSE: 2.0 - 3.0 Includes: PROPHYLAXIS forvenous thrombosis, systemic embolization; TREATMENT for venous thrombosis and/or pulmonary embolus.HIGH RISK: Target INR is 2.5-3.5 for patients with mechanical heart valves.CBC W/PLT COUNT & AUTO [id number] 14:41:00 Test Item Value Reference Range Comments WHITE BLOOD CELL COUNT (BEAKER) (test ikjy=979) 7.1 K/ L 3.5-10.5 RED BLOOD CELL COUNT (BEAKER) (test ezlc=267) 4.79 M/ L 4.63-6.08 HEMOGLOBIN (BEAKER) (test uvfc=064) 13.8 GM/DL 13.7-17.5 HEMATOCRIT (BEAKER) (test biye=024) 40.3 % 40.1-51.0 MEAN CORPUSCULAR VOLUME (BEAKER) (test nocu=984) 84.1 fL 79.0-92.2 MEAN CORPUSCULAR HEMOGLOBIN (BEAKER) (test 28.8 pg 25.7-32.2 ptzu=986) MEAN CORPUSCULAR HEMOGLOBIN CONC (BEAKER) (test 34.2 GM/DL 32.3-36.5 ejrb=041) RED CELL DISTRIBUTION WIDTH (BEAKER) (test 13.6 % 11.6-14.4 aqno=430) PLATELET COUNT (BEAKER) (test cbai=578) 220 K/CU MM 150-450 MEAN PLATELET VOLUME (BEAKER) (test pcwd=860) 10.0 fL 9.4-12.4 NUCLEATED RED BLOOD CELLS (BEAKER) (test 0 /100 WBC 0-0 oael=692) NEUTROPHILS RELATIVE PERCENT (BEAKER) (test 75 % tqrc=874) LYMPHOCYTES RELATIVE PERCENT (BEAKER) (test 18 % afpf=924) MONOCYTES RELATIVE PERCENT (BEAKER) (test 5 % lqdf=841) EOSINOPHILS RELATIVE PERCENT (BEAKER) (test 1 % lcar=341) BASOPHILS RELATIVE PERCENT (BEAKER) (test 1 % ruow=867) NEUTROPHILS ABSOLUTE COUNT (BEAKER) (test 5.29 K/ L 1.78-5.38 yfpv=842) LYMPHOCYTES ABSOLUTE COUNT (BEAKER) (test 1.29 K/ L 1.32-3.57 ihox=393) MONOCYTES ABSOLUTE COUNT (BEAKER) (test 0.38 K/ L 0.30-0.82 cykp=337) EOSINOPHILS ABSOLUTE COUNT (BEAKER) (test 0.06 K/ L 0.04-0.54 cpss=204) BASOPHILS ABSOLUTE COUNT (BEAKER) (test 0.05 K/ L 0.01-0.08 suex=578) IMMATURE GRANULOCYTES-RELATIVE PERCENT (BEAKER) 0 % 0-1 (test lvqe=4674)
[2017-12-18 16:32] LABS: Urine Blood NEGATIVE (NEG); Urine Glucose NEGATIVE (NEG); Urine Protein NEGATIVE (NEG)
[2017-12-18 17:55] LABS: Absolute Lymphocytes (CBC) 2.6 K/uL (0.7-4.9); Absolute Monocytes 0.5 K/uL (0.1-1.3); Absolute Neutrophil 3.7 K/uL (1.8-8.0); Basophils % 1.1 % (0-1.3); Eosinophils % 2.6 % (0-4.4); Lymphocytes % 36.9 % (15.3-44.8); MCH 29.2 pg (27.0-35.0); MCV 86.6 fL (80-100); MPV 8.7 fL (7.6-11.3); Monocytes % 6.7 % (3.3-12.3); RBC Red Blood Cell Count 4.96 M/uL (4.33-5.43)
[2017-12-18 18:02] LABS: Protime INR 1.04
[2017-12-18 18:12] LABS: Bilirubin Direct 0.2 mg/dL (0-0.2); Bilirubin Total 0.6 mg/dL (0.2-1.0); CKMB Creatine Kinase MB 1.2 ng/mL (0.3-3.6); Magnesium 2.3 mg/dL (1.8-2.4); Potassium 3.4 mmol/L (3.5-5.1); Protein, Total 8.4 g/dL (6.4-8.2)
--- NOTE | 2017-12-18 18:16 | RAD REPORT ---
EXAM DESCRIPTION: RAD - Abdomen Acute Series - 12/18/2017 5:34 pm CLINICAL HISTORY: Abd pain;Abdominal distention COMPARISON: Chest Single View dated 08/17/2017; Chest Single View dated 07/12/2017; Chest Single View d ated 08/04/2016; Chest Single View dated 03/01/2016; Abdomen Pelvis W Contrast dated 08/17/2017 FINDINGS: The lungs are grossly clear. The heart is normal in size. No subdiaphragmatic free air see n. No bowel obstruction is present. No pathologic calcifications are identified. No fracture seen. IMPRESSION: No acute abnormality identified.
[2017-12-18] MEDS ORDERED: NA CHLORIDE 0.9% 500 ML ONE (18:21)
[2017-12-18] MEDS ORDERED: ONDANSETRON 4 MG/2 ML VIAL ONE (18:21)
[2017-12-18] MEDS ORDERED: NA CHLORIDE 0.9% 1,000 ML ONE (18:21)
[2017-12-18] MEDS ORDERED: FAMOTIDINE 20 MG/2 ML VIAL IV ONE (18:22)
--- NOTE | 2017-12-18 18:22 | ER ---
Nurse's Notes [facility] Name: Estiven Pena Age: 72 yrs Sex: Male : 1945 Arrival Date: 12/18/2017 Time: 15:20 Bed 24 Private MD: Rashi Rascon R Diagnosis: Weakness;Dizziness and giddiness;Nausea Presentation: 12/18 15:20 Presenting complaint: Patient states: around 30 mins ago, i started feeling nauseous hj and felt dizzy; denies headache and abdominal pain; denies vomiting; denies chest pain;. Transition of care: patient was not received from another setting of care. Onset of symptoms was December 18, 2017. Risk Assessment: Do you want to hurt yourself or someone else? Patient reports no desire to harm self or others. Initial Sepsis Screen: Does the patient meet any 2 criteria? No. Patient's initial sepsis screen is negative. Does the patient have a suspected source of infection? No. Patient's initial sepsis screen is negative. Care prior to arrival: None. 15:20 Method Of Arrival: Ambulatory 15:20 Acuity: ZANA 3 Triage Assessment: 15:24 General: Appears in no apparent distress. uncomfortable, Behavior is calm, cooperative, hj appropriate for age. Pain: Denies pain. GI: Reports nausea. Historical: - Allergies: 15:23 NKDA; hj - Home Meds: 15:23 metoprolol tartrate intravenous intravenous [Active]; atorvastatin oral oral [Active]; hj aspirin 81 mg oral TbEC 1 tab once daily [Active]; - PMHx: 15:23 Anxiety; GERD; High Cholesterol; Hypertension; TIA; hj - PSHx: 15:23 Heart stents; hj - Immunization history:: Adult Immunizations up to date. - Social history:: Smoking status: Patient/guardian denies using tobacco, Patient/guardian denies using alcohol. - Ebola Screening: : Patient negative for fever greater than or equal to 101.5 degrees Fahrenheit, and additional compatible Ebola Virus Disease symptoms Patient denies exposure to infectious person Patient denies travel to an Ebola-affected area in the 21 days before illness onset. - Family history:: not pertinent. Screenin:24 Abuse screen: Denies threats or abuse. Denies injuries from another. Nutritional hj screening: No deficits noted. Tuberculosis screening: No symptoms or risk factors identified. Fall Risk None identified. Assessment: 15:24 GI: Abdomen is non-distended. hj 15:30 General: Appears in no apparent distress. comfortable, Behavior is calm, cooperative, aj1 appropriate for age. Pain: Denies pain. Neuro: Level of Consciousness is awake, alert, obeys commands, Oriented to person, place, time, situation, Moves all extremities. Full function Gait is steady, Speech is normal, Facial symmetry appears normal, Reports dizziness, that lasted for 30 minutes and has now resolved. Cardiovascular: Heart tones S1 S2 present Patient's skin is warm and dry. Respiratory: Airway is patent Respiratory effort is even, unlabored, Respiratory pattern is regular, symmetrical, Denies shortness of breath. GI: Abdomen is non-distended, Reports nausea, Patient currently denies diarrhea, vomiting. : No signs and/or symptoms were reported regarding the genitourinary system. EENT: No signs and/or symptoms were reported regarding the EENT system. Derm: No signs and/or symptoms reported regarding the dermatologic system. Skin is pink, warm \T\ dry. normal. Musculoskeletal: No signs and/or symptoms reported regarding the musculoskeletal system. Circulation, motion, and sensation intact. 16:30 Reassessment: Patient appears in no apparent distress at this time. No changes from aj1 previously documented assessment. Patient and/or family updated on plan of care and expected duration. Pain level reassessed. Patient is alert, oriented x 3, equal unlabored respirations, skin warm/dry/pink. 17:30 Reassessment: Patient appears in no apparent distress at this time. No changes from aj1 previously documented assessment. Patient and/or family updated on plan of care and expected duration. Pain level reassessed. Patient is alert, oriented x 3, equal unlabored respirations, skin warm/dry/pink. 18:00 Reassessment: Patient states that he is thirsty and he would like something to drink. aj1 Ok to give patient a drink per Dr. Long. Patient given a glass of ice water. 18:25 Reassessment: Patients that suddenly he is not feeling well again. States he is feeling aj1 dizzy and nauseated again. Ordered medications administered, see MAR. Dr. Long notified of patient complaint. 18:30 Reassessment: Dr. Long at bedside to evaluate patient. aj1 18:33 Reassessment: Patient states that he is feeling very cold and shaky. Patient given warm aj1 blanket, states that helps and he is feeling a little better. 18:40 Reassessment: Patient states that he is concerned because his last blood pressure aj1 reading was elevated. Patient assured that we would continue to trend and monitor his blood pressure. 18:48 Reassessment: Patient states that he needs to use the restroom. Patient provided urinal.aj1 19:15 Reassessment: Patient appears in no apparent distress at this time. No changes from aj1 previously documented assessment. Patient and/or family updated on plan of care and expected duration. Pain level reassessed. Patient is alert, oriented x 3, equal unlabored respirations, skin warm/dry/pink. Patient states feeling better. 20:37 Reassessment: Patient appears in no apparent distress at this time. No changes from aj1 previously documented assessment. Patient and/or family updated on plan of care and expected duration. Pain level reassessed. Patient is alert, oriented x 3, equal unlabored respirations, skin warm/dry/pink. Vital Signs: 15:24 BP 135 / 84; Pulse 61; Resp 18; Temp 97.9(O); Pulse Ox 96% on R/A; Weight 71.67 kg; hj Height 5 ft. 6 in. (167.64 cm); Pain 0/10; 16:30 BP 130 / 79; Pulse 55; Resp 18; Pulse Ox 96% on R/A; aj1 17:30 BP 135 / 74; Pulse 52; Resp 18; Pulse Ox 95% on R/A; aj1 18:33 BP 170 / 90; Pulse 51; Resp 18; Pulse Ox 98% on R/A; aj1 18:51 BP 150 / 82; Pulse 55; Resp 18; Pulse Ox 99% ; aj1 15:24 Body Mass Index 25.50 (71.67 kg, 167.64 cm) ED Course: 15:20 Patient arrived in ED. rg4 15:20 Rashi Rascon MD is Private Physician. rg4 15:22 Triage completed. 15:24 Arm band placed on left wrist. 15:24 Patient has correct armband on for positive identification. Bed in low position. Call light in reach. Side rails up X 1. 15:29 Yamila Thorne, RN is Primary Nurse. aj1 16:03 Sunny Long MD is Attending Physician. catrachita 17:15 EKG done, by gis mapping technician. reviewed by Sunny Long MD. sm3 17:17 Patient moved to radiology via wheelchair. bb2 17:30 X-ray completed. Patient tolerated procedure well. Patient moved back from radiology. mh1 17:30 Initial lab(s) drawn, by nv, sent to lab. Inserted saline lock: 20 gauge in right aj1 antecubital area, using aseptic technique. Blood collected. 17:31 Abdomen Acute Series XRAY In Process Unspecified. EDMS 18:21 Rashi Rascon MD is Referral Physician. catrachita 18:31 Sunny Law PA is PHCP. cp 18:55 No provider procedures requiring assistance completed. aj1 20:16 Rashi Rascon MD is Referral Physician. cp 20:37 IV discontinued, intact, bleeding controlled, No redness/swelling at site. Pressure aj1 dressing applied. Administered Medications: 18:32 Drug: NS 0.9% 500 ml Route: IV; Rate: bolus; Site: right antecubital; aj1 19:23 Follow up: IV Status: Completed infusion; IV Intake: 500ml aj1 18:32 Drug: Pepcid 20 mg Route: IVP; Site: right antecubital; aj1 19:23 Follow up: Response: No adverse reaction aj1 18:32 Drug: Zofran 4 mg Route: IVP; Site: right antecubital; aj1 19:23 Follow up: Response: No adverse reaction aj1 18:32 Drug: NS 0.9% 1000 ml Route: IV; Rate: 125 ml/hr; Site: right antecubital; aj1 20:36 Follow up: IV Status: Completed infusion; IV Intake: 250ml aj1 18:42 Drug: Potassium Effervescent Tablet 25 mEq Route: PO; aj1 20:35 Follow up: Response: No adverse reaction aj1 Intake: 19:23 IV: 500ml; Total: 500ml. aj1 20:36 IV: 250ml; Total: 750ml. aj1 Outcome: 18:21 Discharge ordered by . catrachita 20:16 Discharge ordered by . cp 20:37 Discharged to home ambulatory. aj1 20:37 Condition: good 20:37 Discharge instructions given to patient, Instructed on discharge instructions, follow up and referral plans. medication usage, Demonstrated understanding of instructions, follow-up care, medications, Prescriptions given X 2. 20:38 Patient left the ED. aj1 Signatures: Dispatcher [employer] EDYamila Ying, RN RN aj1 Sunny Long MD MD cha Harvey, Martha 1 James Magana RN RN hj Snuny Law PA PA cp Garcia, Rubi 4 Tereza Nagy 2 Heidy Joy 3 Corrections: (The following items were deleted from the chart) 15:26 15:20 Presenting complaint: Patient states: around 30 mins ago, i started feeling hj nauseous and felt dizzy; denies headache and abdominal pain; denies vomiting; hj 15:26 15:24 Pulse 59bpm; Resp 18bpm; Pulse Ox 96% RA; Temp 97.9F Oral; 71.67 kg; Height 5 ft. hj 6 in.; BMI: 25.5; Pain 0/10; hj 18:50 18:25 Reassessment: Patients that suddenly he is not feeling well again. States he is aj1 feeling dizzy and nauseated again. Medications administered Dr. Long notified aj1
--- NOTE | 2017-12-18 18:22 | EDPHYS ---
Physician Documentation [facility] Name: Estiven Pena Age: 72 yrs Sex: Male : 1945 Arrival Date: 12/18/2017 Time: 15:20 Bed 24 Private MD: Rashi Rascon R ED Physician Sunny Long HPI: 12/18 17:02 This 72 yrs old Male presents to ER via Ambulatory with complaints of catrachita Dizziness, Nausea. 17:02 The patient presents with dizziness, generalized weakness, lightheadedness. Onset: The catrachita symptoms/episode began/occurred just prior to arrival. Context: occurred at home. Modifying factors: The symptoms are alleviated by nothing, the symptoms are aggravated by nothing. Associated signs and symptoms: Pertinent positives: nausea. Severity of symptoms: At their worst the symptoms were. Patient's baseline: Neuro: alert and fully oriented. The patient has not experienced similar symptoms in the past. Historical: - Allergies: 15:23 NKDA; hj - Home Meds: 15:23 metoprolol tartrate intravenous intravenous [Active]; atorvastatin oral oral [Active]; hj aspirin 81 mg oral TbEC 1 tab once daily [Active]; - PMHx: 15:23 Anxiety; GERD; High Cholesterol; Hypertension; TIA; hj - PSHx: 15:23 Heart stents; hj - Immunization history:: Adult Immunizations up to date. - Social history:: Smoking status: Patient/guardian denies using tobacco, Patient/guardian denies using alcohol. - Ebola Screening: : Patient negative for fever greater than or equal to 101.5 degrees Fahrenheit, and additional compatible Ebola Virus Disease symptoms Patient denies exposure to infectious person Patient denies travel to an Ebola-affected area in the 21 days before illness onset. - Family history:: not pertinent. ROS: 17:02 Constitutional: Negative for fever, chills, and weight loss, Eyes: Negative for injury, catrachita pain, redness, and discharge, ENT: Negative for injury, pain, and discharge, Neck: Negative for injury, pain, and swelling, Cardiovascular: Negative for chest pain, palpitations, and edema, Respiratory: Negative for shortness of breath, cough, wheezing, and pleuritic chest pain, Back: Negative for injury and pain, : Negative for injury, bleeding, discharge, and swelling, MS/Extremity: Negative for injury and deformity, Skin: Negative for injury, rash, and discoloration, Psych: Negative for depression, anxiety, suicide ideation, homicidal ideation, and hallucinations, Allergy/Immunology: Negative for hives, rash, and allergies, Endocrine: Negative for neck swelling, polydipsia, polyuria, polyphagia, and marked weight changes, Hematologic/Lymphatic: Negative for swollen nodes, abnormal bleeding, and unusual bruising. 17:02 Abdomen/GI: Positive for nausea and vomiting. 17:02 Neuro: Positive for dizziness, weakness. Exam: 17:02 Constitutional: This is a well developed, well nourished patient who is awake, alert, catrachita and in no acute distress. Head/Face: Normocephalic, atraumatic. Eyes: Pupils equal round and reactive to light, extra-ocular motions intact. Lids and lashes normal. Conjunctiva and sclera are non-icteric and not injected. Cornea within normal limits. Periorbital areas with no swelling, redness, or edema. ENT: Nares patent. No nasal discharge, no septal abnormalities noted. Tympanic membranes are normal and external auditory canals are clear. Oropharynx with no redness, swelling, or masses, exudates, or evidence of obstruction, uvula midline. Mucous membranes moist. Neck: Trachea midline, no thyromegaly or masses palpated, and no cervical lymphadenopathy. Supple, full range of motion without nuchal rigidity, or vertebral point tenderness. No Meningismus. Chest/axilla: Normal chest wall appearance and motion. Nontender with no deformity. No lesions are appreciated. Cardiovascular: Regular rate and rhythm with a normal S1 and S2. No gallops, murmurs, or rubs. Normal PMI, no JVD. No pulse deficits. Respiratory: Lungs have equal breath sounds bilaterally, clear to auscultation and percussion. No rales, rhonchi or wheezes noted. No increased work of breathing, no retractions or nasal flaring. Abdomen/GI: Soft, non-tender, with normal bowel sounds. No distension or tympany. No guarding or rebound. No evidence of tenderness throughout. Back: No spinal tenderness. No costovertebral tenderness. Full range of motion. Male : Normal genitalia with no discharge or lesions. Skin: Warm, dry with normal turgor. Normal color with no rashes, no lesions, and no evidence of cellulitis. MS/ Extremity: Pulses equal, no cyanosis. Neurovascular intact. Full, normal range of motion. Neuro: Awake and alert, GCS 15, oriented to person, place, time, and situation. Cranial nerves II-XII grossly intact. Motor strength 5/5 in all extremities. Sensory grossly intact. Cerebellar exam normal. Normal gait. Psych: Awake, alert, with orientation to person, place and time. Behavior, mood, and affect are within normal limits. 19:16 ECG was reviewed by the Attending Physician. Vital Signs: 15:24 BP 135 / 84; Pulse 61; Resp 18; Temp 97.9(O); Pulse Ox 96% on R/A; Weight 71.67 kg; hj Height 5 ft. 6 in. (167.64 cm); Pain 0/10; 16:30 BP 130 / 79; Pulse 55; Resp 18; Pulse Ox 96% on R/A; aj1 17:30 BP 135 / 74; Pulse 52; Resp 18; Pulse Ox 95% on R/A; aj1 18:33 BP 170 / 90; Pulse 51; Resp 18; Pulse Ox 98% on R/A; aj1 18:51 BP 150 / 82; Pulse 55; Resp 18; Pulse Ox 99% ; aj1 15:24 Body Mass Index 25.50 (71.67 kg, 167.64 cm) MDM: 16:03 Patient medically screened. [facility] 17:03 Data reviewed: vital signs, nurses notes, lab test result(s), EKG, radiologic studies, [facility] CT scan, plain films. 12/18 16:05 Order name: Urine Dipstick--Ancillary (enter results); Complete Time: 17:52 ag 12/18 16:59 Order name: Basic Metabolic Panel; Complete Time: 18:18 [facility] 12/18 16:59 Order name: CBC with Diff; Complete Time: 18:02 catrachita 12/18 16:59 Order name: Ckmb; Complete Time: 18:18 [place] 12/18 16:59 Order name: CPK; Complete Time: 18:18 [facility] 12/18 16:59 Order name: LFT's; Complete Time: 18:18 [place] 12/18 16:59 Order name: Magnesium; Complete Time: 18:18 [place] 12/18 16:59 Order name: NT PRO-BNP; Complete Time: 18:18 [facility] 12/18 16:59 Order name: PT-INR; Complete Time: 18:09 [facility] 12/18 16:59 Order name: Ptt, Activated; Complete Time: 18:09 [facility] 12/18 16:59 Order name: Troponin (emerg Dept Use Only); Complete Time: 18:12 [facility] 12/18 16:59 Order name: Lipase; Complete Time: 18:18 [facility] 12/18 16:59 Order name: Urine Culture [facility] 12/18 18:26 Order name: Ckmb [facility] 12/18 16:59 Order name: EKG; Complete Time: 17:00 [facility] 12/18 16:59 Order name: Cardiac monitoring; Complete Time: 19:22 [facility] 12/18 16:59 Order name: EKG - Nurse/Tech; Complete Time: 19:22 [facility] 12/18 16:59 Order name: IV Saline Lock; Complete Time: 19:22 [facility] 12/18 16:59 Order name: Abdomen Acute Series XRAY; Complete Time: 18:18 [facility] 12/18 18:26 Order name: EKG; Complete Time: 18:26 [facility] 12/18 18:26 Order name: Creatine Phosphokinase [facility] 12/18 18:26 Order name: Troponin (emerg Dept Use Only) [facility] 12/18 18:26 Order name: CKMB Creatine Kinase MB; Complete Time: 19:45 [facility]NE 12/18 19:45 Interpretation: Within normal limits: CKMB 1.1. 12/18 18:26 Order name: Creatine Phosphokinase; Complete Time: 19:45 [facility]NE 12/18 19:45 Interpretation: CPK 151; Reviewed. 12/18 18:26 Order name: Troponin (Emerg Dept Use Only); Complete Time: 20:16 [facility] 12/18 20:16 Interpretation: Reviewed. 12/18 16:59 Order name: Labs collected and sent; Complete Time: 19:22 [facility] 12/18 16:59 Order name: O2 Per Protocol; Complete Time: 19:22 [facility] 12/18 16:59 Order name: O2 Sat Monitoring; Complete Time: 19:22 [facility] 12/18 16:59 Order name: Urine Dipstick-Ancillary (obtain specimen); Complete Time: 19:22 [facility] 12/18 18:26 Order name: EKG - Nurse/Tech; Complete Time: 19:06 [facility] 12/18 18:26 Order name: Repeat Cardiac Enzymes at: at 7 pm; Complete Time: 19:20 [facility] 12/18 18:26 Order name: Vital Signs; Complete Time: 18:37 [facility] EC:16 Rate is 57 beats/min. Rhythm is regular. MN interval is normal. QRS interval is normal. cp QT interval is normal. T waves are Inverted in leads V3, V4, V5. No ST changes noted. Interpreted by me. Reviewed by me. Administered Medications: 18:32 Drug: NS 0.9% 500 ml Route: IV; Rate: bolus; Site: right antecubital; aj1 19:23 Follow up: IV Status: Completed infusion; IV Intake: 500ml aj 18:32 Drug: Pepcid 20 mg Route: IVP; Site: right antecubital; aj1 19:23 Follow up: Response: No adverse reaction [facility] 18:32 Drug: Zofran 4 mg Route: IVP; Site: right antecubital; aj1 19:23 Follow up: Response: No adverse reaction [facility] 18:32 Drug: NS 0.9% 1000 ml Route: IV; Rate: 125 ml/hr; Site: right antecubital; aj1 20:36 Follow up: IV Status: Completed infusion; IV Intake: 250ml [facility] 18:42 Drug: Potassium Effervescent Tablet 25 mEq Route: PO; aj1 20:35 Follow up: Response: No adverse reaction aj Disposition: 12/18/17 20:16 Discharged to Home. Impression: Weakness, Dizziness and giddiness, Nausea. - Condition is Stable. - Discharge Instructions: Dizziness, Nausea, Adult, Weakness. - Prescriptions for Zofran 4 mg Oral Tablet - take 1 tablet by ORAL route every 12 hours As needed; 20 tablet. Pepcid 20 mg Oral Tablet - take 1 tablet by ORAL route every 12 hours for 10 days; 20 tablet. - Medication Reconciliation Form, Thank You Letter, Antibiotic Education, Prescription Opioid Use form. - Follow up: Rashi Rascon; When: 2 - 3 days; Reason: Recheck today's complaints, Continuance of care, Re-evaluation by your physician. - Problem is new. - Symptoms have improved. Addendum: 12/20/2017 06:23 Co-signature as Attending Physician, Sunny Long MD I agree with the assessment and c saucedo plan of care. Signatures: Dispatcher [employer] EDYamila Ying RN RN aj1 Sunny Long MD MD cha Joaquin, Henry, RN RN hj Sunny Law, JESUS LEE cp Corrections: (The following items were deleted from the chart) 12/18 18:31 18:21 12/18/2017 18:21 Discharged to Home. Impression: Weakness; Dizziness and cp giddiness; Nausea. Condition is Stable. Discharge Instructions: Dizziness, Nausea, Adult, Weakness, Weakness, [id number], Nausea, Adult, [id number], Dizziness, [id number]. Prescriptions for Pepcid 20 mg Oral Tablet - take 1 tablet by ORAL route every 12 hours for 10 days; 20 tablet, Zofran 4 mg Oral Tablet - take 1 tablet by ORAL route every 12 hours As needed; 14 tablet. and Forms are Medication Reconciliation Form, Thank You Letter, Antibiotic Education, Prescription Opioid Use. Follow up: Rashi Rascon; When: 2 - 3 days; Reason: Recheck today's complaints, Continuance of care, Re-evaluation by your physician. Problem is new. Symptoms have improved. [facility] 20:38 20:16 12/18/2017 20:16 Discharged to Home. Impression: Weakness; Dizziness and aj1 giddiness; Nausea. Condition is Stable. Prescriptions for Pepcid 20 mg Oral Tablet - take 1 tablet by ORAL route every 12 hours for 10 days; 20 tablet, Zofran 4 mg Oral Tablet - take 1 tablet by ORAL route every 12 hours As needed; 14 tablet. and Forms are Medication Reconciliation Form, Thank You Letter, Antibiotic Education, Prescription Opioid Use. Follow up: Rashi Rascon; When: 2 - 3 days; Reason: Recheck today's complaints, Continuance of care, Re-evaluation by your physician. Problem is new. Symptoms have improved. cp
[2017-12-18] MEDS ORDERED: POTASSIUM 25 MEQ EFFERV TAB ONE (18:41)
[2017-12-18 19:40] LABS: CKMB Creatine Kinase MB 1.1 ng/mL (0.3-3.6)
[2017-12-18 20:42] VITALS: TEMP 97.9
[2017-12-18 20:47] VITALS: BP 150/82; O2SAT 99
--- NOTE | 2017-12-19 09:24 | EKG ---
Test Date: 2017-12-18 Test Time: 17:06:14 Licensed Mental Health Counselor: SHRUTHI MEASUREMENT RESULTS: Intervals: Rate: 58 NM: 176 QRSD: 78 QT: 446 QTc: 437 [place]: P: 51 NM: 176 QRS: 3 T: -9 INTERPRETIVE STATEMENTS: Sinus bradycardia with premature atrial complexes Nonspecific T wave abnormality Abnormal ECG Compared to ECG 08/17/2017 08:06:43 Atrial premature complex(es) now present Sinus rhythm no longer present T-wave abnormality still present Electronically Signed On 12-19-17 09:23:16 CDT by Ramses Quiroga
--- NOTE | 2017-12-19 09:24 | EKG ---
Test Date: 2017-12-18 Test Time: 19:09:49 Event Specialist: JUDSON MEASUREMENT RESULTS: Intervals: Rate: 57 IN: 166 QRSD: 78 QT: 474 QTc: 461 [place]: P: 58 IN: 166 QRS: 10 T: -46 INTERPRETIVE STATEMENTS: Sinus bradycardia NST Abnormal ECG Compared to ECG 12/18/2017 17:06:14 Possible ischemia now present Atrial premature complex(es) no longer present T-wave abnormality still present Electronically Signed On 12-19-17 09:23:11 CDT by Ramses Quiroga
== END 2017-12-18 20:38 | disposition home or self-care (01) ==
LOC: ER 15:17
DX: R53.1 Weakness (principal); R11.0 Nausea; I10 Essential (primary) hypertension; E78.00 Pure hypercholesterolemia, unspecified; F41.9 Anxiety disorder, unspecified; Z79.82 Long term (current) use of aspirin; Z86.73 Personal history of transient ischemic attack (TIA), and cerebral infarction without residual deficits; Z95.818 Presence of other cardiac implants and grafts
CPT/HCPCS: 36415; 74022; 80048; 80076; 81003; 82550 ×2; 82553 ×2; 83690; 83735; 83880; 84484 ×2; 85025; 85610; 85730; 87088; 93005 ×2; 96361; 96374; 96375; 99284; J2405; J7030; 87086

== ENCOUNTER 2017-12-23 17:07 | Emergency (ER) | payer OTHER ==
--- OUTSIDE RECORDS SUMMARY | 2017-12-23 17:09 | XMS REPORT | Clinical Summary ---
:1945 Author Organization [facility] Address [address] [place] [address] Phone Care Team Providers Name Role Phone [...] than 24 hours prior to arrival after 12/22/2016 Immunizations Name Dates Previously Given Next Due [...] Taken Blood Pressure 156/83 07/15/2017 12:12 PM [facility] Pulse 97 07/15/2017 2:10 PM [facility] Temperature 36.3 C (97.4 F) 07/15/2017 12:12 PM [facility] Respiratory Rate 20 07/15/2017 2:10 PM [facility] Oxygen Saturation 96% 07/15/2017 2:10 PM [facility] Inhaled Oxygen Concentration - - Weight 70.1 kg (154 lb 8.7 oz) 07/12/2017 11:15 AM [facility] Height 167.6 cm (5' 6") 07/12/2017 11:15 AM [facility] Body Mass Index 24.94 07/12/2017 11:15 AM [facility] Plan of Treatment Not on file Results [...] [facility] [address] [place] [address] CBC with platelet count + automated diff (07/15/2017 3:57 AM)Only the most recent of4 resultswithin the time period is included. Specimen Performing Laboratory Blood Narrative The following orders were created for panel order CBC with platelet count + automated diff. Procedure Abnormality Status --------- ------ CBC with platelet count ...[[id number]]Final result Please view results for these tests [...] m ESTIMATED GFR. Specimen Performing Laboratory Blood [address] [address] MR brain without IV contrast (07/14/2017 12:15 PM) Specimen Performing Laboratory [facility] Narrative FINAL REPORT MRI Brain without [...] MD Report Verified Date/Time:07/15/2017 07:45:58 Reading Location: [address] Neuro Reading Room Procedure Note Interface, External Ris In - 07/15/2017 7:48 AM [facility] FINAL REPORT MRI Brain without contrast Clinical [...] Report Verified Date/Time: 07/15/2017 07:45:58 Reading Location: [address] Neuro Reading Room MRA neck without contrast (07/14/2017 12:15 PM) Specimen Performing Laboratory [address] [facility] Narrative FINAL REPORT MRA Head CLINICAL HISTORY: Stroke TECHNIQUE: MRA of the head utilizing 3-D yrwv-ls-kcbder technique, with 3-D reconstructions. COMPARISON: None FINDINGS: There is no evidence of intracranial aneurysm, critical stenosis, or major branch vessel occlusion. IMPRESSION: No evidence for a major zuni of Farmer proximal branch vessel occlusion. MRA Neck CLINICAL HISTORY: Stroke TECHNIQUE: MRA of the neck utilizing 2-D and 3-D qjqg-ma-tllwrl technique, with 3-D reconstructions. COMPARISON: None FINDINGS: The carotid arteries in the neck are patent including their bifurcations. There is antegrade flow in the vertebral arteries in the neck. IMPRESSION: No evidence of hemodynamically significant stenosis in the cervical carotid or vertebral arteries by NASCET criteria. Signed: Malaika Bergman MD Report Verified Date/Time:07/14/2017 13:30:39 Reading Location: [address] Neuro Reading Room Procedure Note Interface, External Ris In - 07/14/2017 1:32 PM [facility] FINAL REPORT MRA Head CLINICAL HISTORY: Stroke TECHNIQUE: MRA of the head utilizing 3-D zpvl-ch-iejbkr technique, with 3-D reconstructions. COMPARISON: None FINDINGS: There is no evidence of intracranial aneurysm, critical stenosis, or major branch vessel occlusion. IMPRESSION: No evidence for a major zuni of [place] proximal branch vessel occlusion. MRA Neck CLINICAL HISTORY: Stroke TECHNIQUE: MRA of the neck utilizing 2-D and 3-D dbcs-pb-bvrnos technique, with 3-D reconstructions. COMPARISON: None FINDINGS: The carotid arteries in the neck are patent including their bifurcations. There is antegrade flow in the vertebral arteries in the neck. IMPRESSION: No evidence of hemodynamically significant stenosis in the cervical carotid or vertebral arteries by NASCET criteria. Signed: Malaika Bergman MD Report Verified Date/Time: 07/14/2017 13:30:39 Reading Location: [address] Neuro Reading Room MRA head without contrast (07/14/2017 12:15 PM) Specimen Performing Laboratory [facility] Narrative FINAL REPORT MRA Head CLINICAL HISTORY: Stroke TECHNIQUE: MRA of the head utilizing 3-D nbpm-cw-amihrn technique, with 3-D reconstructions. COMPARISON: None FINDINGS: There is no evidence of intracranial aneurysm, critical stenosis, or major branch vessel occlusion. IMPRESSION: No evidence for a major zuni of Farmer proximal branch vessel occlusion. MRA Neck CLINICAL HISTORY: Stroke TECHNIQUE: MRA of the neck utilizing 2-D and 3-D jeaz-kh-xorngv technique, with 3-D reconstructions. COMPARISON: None FINDINGS: The carotid arteries in the neck are patent including their bifurcations. There is antegrade flow in the vertebral arteries in the neck. IMPRESSION: No evidence of hemodynamically significant stenosis in the cervical carotid or vertebral arteries by NASCET criteria. Signed: Malaika Bergman MD Report Verified Date/Time:07/14/2017 13:30:39 Reading Location: [address] Neuro Reading Room Procedure Note Interface, External Ris In - 07/14/2017 1:32 PM [facility] FINAL REPORT MRA Head CLINICAL HISTORY: Stroke TECHNIQUE: MRA of the head utilizing 3-D yuux-qh-nrgrjn technique, with 3-D reconstructions. COMPARISON: None FINDINGS: There is no evidence of intracranial aneurysm, critical stenosis, or major branch vessel occlusion. IMPRESSION: No evidence for a major zuni of Farmer proximal branch vessel occlusion. MRA Neck CLINICAL HISTORY: Stroke TECHNIQUE: MRA of the neck utilizing 2-D and 3-D elmg-iz-bwpgoc technique, with 3-D reconstructions. COMPARISON: None FINDINGS: The carotid arteries in the neck are patent including their bifurcations. There is antegrade flow in the vertebral arteries in the neck. IMPRESSION: No evidence of hemodynamically significant stenosis in the cervical carotid or vertebral arteries by NASCET criteria. Signed: Malaika Bergman MD Report Verified Date/Time: 07/14/2017 13:30:39 Reading Location: [address] Neuro Reading Room brain without IV contrast portable (07/13/2017 7:44 PM) Specimen Performing Laboratory [facility] Narrative FINAL REPORT CT head without [...] MD Report Verified Date/Time:07/13/2017 20:35:58 Reading Location: [facility] Radiology Reading Room Procedure Note Interface, External Ris In - 07/13/2017 8:38 PM [facility] FINAL REPORT CT head without contrast INDICATION: [...] Report Verified Date/Time: 07/13/2017 20:35:58 Reading Location: [facility] Radiology Reading Room Vitamin B12 and Folate (07/13/2017 3:48 AM) Component Value Ref Range Vitamin B12 391 213 - 816 pg/mL Folate 15.4 >=7.0 ng/mL Specimen Performing Laboratory Blood [address] [address] Troponin I (07/13/2017 3:48 AM)Only the most recent of3 resultswithin the time period is included. Component Value Ref Range Troponin I 0.01 0.00 - 0.03 ng/mL Specimen Performing Laboratory Blood [address] [address] Narrative Troponin I (TnI) levels must be [...] - 6.1 % Specimen Performing Laboratory Blood [address] [address] Narrative Fasting Fasting lipid panel (07/13/2017 3:48 AM) Component Value Ref Range Triglycerides 150 mg/dL Cholesterol 201 mg/dL HDL 36 mg/dL LDL Calculated 135 mg/dL Specimen Performing Laboratory Blood [address] [address] Narrative Triglyceride Reference Range: Low Risk <150 Pzkdiaufuq050-463 High Risk 200-499 Very High Risk>=500 Cholesterol Reference Range: Low Risk <200 Fdshuuizri087-546 High Risk>240 HDL Cholesterol Reference Range: Low Risk >=60 High Risk <40 LDL Cholesterol Reference Range: Optimal<100 Near Fdjaspk571-957 Bnathboqvl263-963 Altq255-863 Very High >=190 Fasting ECHOCARDIOGRAM REPORT - SCAN (07/12/2017 4:34 PM)RPR (07/12/2017 2:21 PM) Component Value Ref Range RPR Nonreactive Nonreactive Specimen Performing Laboratory Blood - Arm, Right [address] [address] aPTT (07/12/2017 2:21 PM) Component Value Ref Range PTT 31.5 22.5 - 36.0 seconds Specimen Performing Laboratory Blood - Arm, [address] [address] Prothrombin time/INR (07/12/2017 2:21 PM) Component Value Ref Range Protime 16.7 (H) 11.7 - 14.7 seconds INR 1.4 <=5.9 Specimen Performing Laboratory Blood - Arm, [address] [address] Narrative RECOMMENDED COUMADIN/WARFARIN INR THERAPY RANGES STANDARD [...] U/L Specimen Performing Laboratory Blood - Arm, [address] [address] Transthoracic 2D echo w/ doppler (cw/pw/color) (07/12/2017 1:00 PM) Component Value Ref Range Ejection Fraction Specimen Performing Laboratory [facility] ECHO HEARTLAB MKCKESSON CPACS Narrative Transthoracic Echocardiography Report (TTE) Demographics Patient NameESTIVEN BOONE Date of Study2017 Male Visit [id number] Unknown Room Number 7514 Number Date of 1945Referring Nathan Villagomez Age 72 year(s)SonographerOscar ANGELES Sorto Certified Nurse Aide Estephania Baker, Interpreting Hung Banegas Procedure Type [...] External Ris In - 07/12/2017 4:00 PM [facility] Transthoracic Echocardiography Report (TTE) Demographics Patient Name ESTIVEN BOONE Date of Study 07/12/2017 Gender Male Visit Number [id number] Race Unknown Room Number 7514 Number Date of 1945 Referring Physician Jesus Villagomez Age 72 year(s) Mule Developer Tray Sorto, [facility] Certified Nurse Aide Estephania Baker, Interpreting Lorie Bright [facility] Physician Procedure Type of Study TTE procedure:2DECHO [...] 2.86 m/s TR Gradient: 32.76 mmHg after 12/22/2016
--- OUTSIDE RECORDS SUMMARY | 2017-12-23 17:10 | XMS REPORT ---
:1945 [facility] Address [address] [place] [address] [address]. [address] [place] [address] Care Team Providers Name Role Phone JANNIE [...] WITHOUT CONTRAST 07:45:00 exam:->StrokeWhat is the ID: [id number] MRI patient's sedation Brain without contrast requirement?->No [...] MDReport Verified Date/Time: 07/15/2017 07:45:58 Reading Location: [facility] B1 C013V Neuro Reading Room C METABOLIC PANEL 2017-07-15 04:59:00 Test Item Value Reference Range Comments SODIUM (BEAKER) (test 138 meq/L 136-145 vwzu=309) POTASSIUM (BEAKER) (test 4.0 meq/L 3.5-5.1 amrb=987) CHLORIDE (BEAKER) (test 104 meq/L 98-107 dcfc=039) CO2 (BEAKER) (test dvqp=397) 25 meq/L 22-29 BLOOD UREA NITROGEN (BEAKER) 15 mg/dL 7-21 (test saze=497) CREATININE (BEAKER) (test 0.99 mg/dL 0.57-1.25 yrgp=004) GLUCOSE RANDOM (BEAKER) 111 mg/dL 70-105 (test odop=278) CALCIUM (BEAKER) (test 9.3 mg/dL 8.4-10.2 jeic=960) EGFR (BEAKER) (test mL/min/1.73 sq m INSUFFICIENT CLINICAL DATA TO qpfk=1941) CALCULATE ESTIMATED GFR. CBC W/PLT COUNT & AUTO [id number] 04:37:00 Test Item Value Reference Range Comments WHITE BLOOD CELL COUNT (BEAKER) (test capo=193) 5.9 K/ L 3.5-10.5 RED BLOOD CELL COUNT (BEAKER) (test qrag=612) 4.99 M/ L 4.63-6.08 HEMOGLOBIN (BEAKER) (test kogx=355) 14.0 GM/DL 13.7-17.5 HEMATOCRIT (BEAKER) (test oobf=069) 42.2 % 40.1-51.0 MEAN CORPUSCULAR VOLUME (BEAKER) (test kzzh=112) 84.6 fL 79.0-92.2 MEAN CORPUSCULAR HEMOGLOBIN (BEAKER) (test 28.1 pg 25.7-32.2 uuis=201) MEAN CORPUSCULAR HEMOGLOBIN CONC (BEAKER) (test 33.2 GM/DL 32.3-36.5 htoy=849) RED CELL DISTRIBUTION WIDTH (BEAKER) (test 13.6 % 11.6-14.4 ugaa=961) PLATELET COUNT (BEAKER) (test xzbi=130) 235 K/CU MM 150-450 MEAN PLATELET VOLUME (BEAKER) (test tmkd=335) 10.0 fL 9.4-12.4 NUCLEATED RED BLOOD CELLS (BEAKER) (test 0 /100 WBC 0-0 kqre=905) NEUTROPHILS RELATIVE PERCENT (BEAKER) (test 49 % gror=671) LYMPHOCYTES RELATIVE PERCENT (BEAKER) (test 36 % bmwd=070) MONOCYTES RELATIVE PERCENT (BEAKER) (test 8 % crbg=560) EOSINOPHILS RELATIVE PERCENT (BEAKER) (test 6 % itde=824) BASOPHILS RELATIVE PERCENT (BEAKER) (test 1 % ffaw=501) NEUTROPHILS ABSOLUTE COUNT (BEAKER) (test 2.89 K/ L 1.78-5.38 ygqr=716) LYMPHOCYTES ABSOLUTE COUNT (BEAKER) (test 2.13 K/ L 1.32-3.57 tnjr=309) MONOCYTES ABSOLUTE COUNT (BEAKER) (test 0.47 K/ L 0.30-0.82 kkur=957) EOSINOPHILS ABSOLUTE COUNT (BEAKER) (test 0.37 K/ L 0.04-0.54 bjkx=999) BASOPHILS ABSOLUTE COUNT (BEAKER) (test 0.05 K/ L 0.01-0.08 sjyd=399) IMMATURE GRANULOCYTES-RELATIVE PERCENT (BEAKER) 0 % 0-1 (test mqhi=0568) MR, MRA, BRAIN, WITHOUT [id number] 13:30:00Reason for exam:-> StrokeWhat is the patient's sedation requirement?->No SedationFINAL REPORT MRA Head CLINICAL HISTORY: Stroke TECHNIQUE: MRA of the head utilizing 3-D xnej-kt-bkeepg technique, with 3-D reconstructions. COMPARISON: None FINDINGS: There is noevidence of intracranial aneurysm, critical stenosis, or major branch vessel occlusion. IMPRESSION: No evidence for a major atka of Farmer proximal branch vessel occlusion. MRA [...] MDReport Verified Date/Time: 07/14/2017 13:30:39 Reading Location: [facility] C013V Neuro Reading Room MR, MRA, NECK, WITHOUT IV [id number] 13:30:00FINAL REPORT MRA Head CLINICAL HISTORY: Stroke TECHNIQUE: MRA of the head utilizing 3-D humr-ws-qharky technique, with 3-D reconstructions. COMPARISON: None FINDINGS: There is noevidence of intracranial aneurysm, critical stenosis, or major branch vessel occlusion. IMPRESSION: No evidence for a major atka of [place] proximal branch vessel occlusion. MRA Neck CLINICAL HISTORY: Stroke TECHNIQUE: MRA of the neck utilizing 2-D and 3-D mrmx-fw-uxwtrw technique, with 3-D reconstructions. COMPARISON: None FINDINGS: The carotid arteries in the neck are patent including their bifurcations. There is antegrade flow in the vertebral arteries in the neck. IMPRESSION: No evidence of hemodynamically significant stenosis in the cervical carotid or vertebral arteries by NASCET criteria. Signed: Malaika Bergman MDReport Verified Date/Time: 07/14/2017 13:30: 39 Reading Location: [address] Neuro Reading Room BASI METABOLIC [id number] 04:42:00 Test Item Value Reference Range Comments SODIUM (BEAKER) (test 136 meq/L 136-145 gaic=302) POTASSIUM (BEAKER) (test 3.8 meq/L 3.5-5.1 osed=284) CHLORIDE (BEAKER) (test 105 meq/L 98-107 qtjb=361) CO2 (BEAKER) (test 24 meq/L 22-29 qefj=403) BLOOD UREA NITROGEN 12 mg/dL 7-21 (BEAKER) (test ofex=423) CREATININE (BEAKER) (test 1.00 mg/dL 0.57-1.25 vvii=037) GLUCOSE RANDOM (BEAKER) 105 mg/dL 70-105 (test rdjp=559) CALCIUM (BEAKER) (test 9.0 mg/dL 8.4-10.2 xtee=009) EGFR (BEAKER) (test mL/min/1.73 sq m INSUFFICIENT CLINICAL DATA lfda=2342) TO CALCULATE ESTIMATED GFR. CBC W/PLT COUNT & AUTO [id number] 04:00:00 Test Item Value Reference Range Comments WHITE BLOOD CELL COUNT (BEAKER) (test pvkq=078) 5.6 K/ L 3.5-10.5 RED BLOOD CELL COUNT (BEAKER) (test xbbi=830) 4.94 M/ L 4.63-6.08 HEMOGLOBIN (BEAKER) (test tqsi=460) 13.9 GM/DL 13.7-17.5 HEMATOCRIT (BEAKER) (test mahc=092) 41.3 % 40.1-51.0 MEAN CORPUSCULAR VOLUME (BEAKER) (test mumj=283) 83.6 fL 79.0-92.2 MEAN CORPUSCULAR HEMOGLOBIN (BEAKER) (test 28.1 pg 25.7-32.2 vkej=503) MEAN CORPUSCULAR HEMOGLOBIN CONC (BEAKER) (test 33.7 GM/DL 32.3-36.5 rcft=254) RED CELL DISTRIBUTION WIDTH (BEAKER) (test 13.5 % 11.6-14.4 ehiw=053) PLATELET COUNT (BEAKER) (test apyx=803) 222 K/CU MM 150-450 MEAN PLATELET VOLUME (BEAKER) (test qqwt=034) 10.1 fL 9.4-12.4 NUCLEATED RED BLOOD CELLS (BEAKER) (test 0 /100 WBC 0-0 ltsm=345) NEUTROPHILS RELATIVE PERCENT (BEAKER) (test 48 % xsks=701) LYMPHOCYTES RELATIVE PERCENT (BEAKER) (test 39 % cqrn=846) MONOCYTES RELATIVE PERCENT (BEAKER) (test 8 % shyd=215) EOSINOPHILS RELATIVE PERCENT (BEAKER) (test 4 % xlyr=205) BASOPHILS RELATIVE PERCENT (BEAKER) (test 1 % hbwx=980) NEUTROPHILS ABSOLUTE COUNT (BEAKER) (test 2.71 K/ L 1.78-5.38 unuf=246) LYMPHOCYTES ABSOLUTE COUNT (BEAKER) (test 2.16 K/ L 1.32-3.57 epjt=489) MONOCYTES ABSOLUTE COUNT (BEAKER) (test 0.45 K/ L 0.30-0.82 okoo=450) EOSINOPHILS ABSOLUTE COUNT (BEAKER) (test 0.21 K/ L 0.04-0.54 ccso=317) BASOPHILS ABSOLUTE COUNT (BEAKER) (test 0.05 K/ L 0.01-0.08 gmys=620) IMMATURE GRANULOCYTES-RELATIVE PERCENT (BEAKER) 0 % 0-1 (test ezya=6467) CT BRAIN WITHOUT IV CONTRAST - [id number] 20:35:00Reason for exam:-> 24h post tPAFINAL REPORT [...] by : BHARAT BATRES M.D.on 07/13/2017 08:35 [id number] 18:14:00 Test Item Value Reference Range Comments RPR SCREEN (BEAKER) (test xjxb=757) Nonreactive Nonreactive HEMOGLOBIN [id number] 11:35:00 Test Item Value Reference Range Comments HEMOGLOBIN A1C (BEAKER) (test lwws=315) 5.7 % 4.3-6.1 FastingCBC W/PLT COUNT & AUTO [id number] 05:59:00 Test Item Value Reference Range Comments WHITE BLOOD CELL COUNT (BEAKER) (test vuzj=056) 7.9 K/ L 3.5-10.5 RED BLOOD CELL COUNT (BEAKER) (test upum=450) 4.86 M/ L 4.63-6.08 HEMOGLOBIN (BEAKER) (test twen=477) 13.5 GM/DL 13.7-17.5 HEMATOCRIT (BEAKER) (test mtjd=571) 40.7 % 40.1-51.0 MEAN CORPUSCULAR VOLUME (BEAKER) (test rxgm=657) 83.7 fL 79.0-92.2 MEAN CORPUSCULAR HEMOGLOBIN (BEAKER) (test 27.8 pg 25.7-32.2 yalw=077) MEAN CORPUSCULAR HEMOGLOBIN CONC (BEAKER) (test 33.2 GM/DL 32.3-36.5 bouu=999) RED CELL DISTRIBUTION WIDTH (BEAKER) (test 13.5 % 11.6-14.4 ceye=513) PLATELET COUNT (BEAKER) (test nget=286) 222 K/CU MM 150-450 MEAN PLATELET VOLUME (BEAKER) (test vrst=209) 10.2 fL 9.4-12.4 NUCLEATED RED BLOOD CELLS (BEAKER) (test 0 /100 WBC 0-0 wuau=688) NEUTROPHILS RELATIVE PERCENT (BEAKER) (test 81 % rovo=935) LYMPHOCYTES RELATIVE PERCENT (BEAKER) (test 13 % pjge=156) MONOCYTES RELATIVE PERCENT (BEAKER) (test 5 % vqzv=712) EOSINOPHILS RELATIVE PERCENT (BEAKER) (test 1 % locf=675) BASOPHILS RELATIVE PERCENT (BEAKER) (test 0 % ztpd=514) NEUTROPHILS ABSOLUTE COUNT (BEAKER) (test 6.34 K/ L 1.78-5.38 pqtf=407) LYMPHOCYTES ABSOLUTE COUNT (BEAKER) (test 1.00 K/ L 1.32-3.57 dwgn=262) MONOCYTES ABSOLUTE COUNT (BEAKER) (test 0.42 K/ L 0.30-0.82 ugzu=268) EOSINOPHILS ABSOLUTE COUNT (BEAKER) (test 0.06 K/ L 0.04-0.54 ypfx=053) BASOPHILS ABSOLUTE COUNT (BEAKER) (test 0.03 K/ L 0.01-0.08 hyte=156) IMMATURE GRANULOCYTES-RELATIVE PERCENT (BEAKER) 0 % 0-1 (test qzeg=3746) VITAMIN B12 AND [id number] 05:24:00 Test Item Value Reference Range Comments VITAMIN B12 (BEAKER) (test xqoq=849) 391 pg/mL 213-816 FOLATE (BEAKER) (test aapz=716) 15.4 ng/mL >=7.0 BASIC METABOLIC [id number] 05:07:00 Test Item Value Reference Range Comments SODIUM (BEAKER) (test 133 meq/L 136-145 xamw=025) POTASSIUM (BEAKER) (test 3.9 meq/L 3.5-5.1 wrbz=131) CHLORIDE (BEAKER) (test 103 meq/L 98-107 dzgu=178) CO2 (BEAKER) (test 22 meq/L 22-29 kbvo=592) BLOOD UREA NITROGEN 11 mg/dL 7-21 (BEAKER) (test qdgv=300) CREATININE (BEAKER) (test 1.02 mg/dL 0.57-1.25 prfk=591) GLUCOSE RANDOM (BEAKER) 129 mg/dL 70-105 (test pvas=072) CALCIUM (BEAKER) (test 8.7 mg/dL 8.4-10.2 uknf=074) EGFR (BEAKER) (test mL/min/1.73 sq m INSUFFICIENT CLINICAL DATA mnfr=4547) TO CALCULATE ESTIMATED GFR. FastingLIPID [id number] 05:01:00 Test Item Value Reference Range Comments TRIGLYCERIDES (BEAKER) (test qocw=083) 150 mg/dL CHOLESTEROL (BEAKER) (test ulfq=362) 201 mg/dL HDL CHOLESTEROL (BEAKER) (test hork=256) 36 mg/dL LDL CHOLESTEROL CALCULATED (BEAKER) (test 135 mg/dL mfpo=899) Triglyceride Reference Range: Low Risk <150 Borderline 150- 199 High Risk 200-499 Very High Risk >=500Cholesterol Reference Range: Low Risk <200 Borderline 200-239 High Risk > 240HDL Cholesterol Reference Range: Low Risk >=60 High Risk <40LDL Cholesterol Reference Range: Optimal <100 Near Optimal 100-129 Borderline 130-159 High 160-189 Very High >=190 FastingTROPONIN [id number] 04:55:00 Test Item Value Reference Range Comments TROPONIN I (BEAKER) (test jhkv=771) 0.01 ng/mL 0.00-0.03 Troponin I (TnI) levels [...] acidosis, acute neurological disease, and persistent tachyarrhythmia.FastingTROPONIN [id number] 23:16:00 Test Item Value Reference Range Comments TROPONIN I (BEAKER) (test zscy=986) 0.02 ng/mL 0.00-0.03 Troponin I (TnI) levels [...] acidosis, acute neurological disease, and persistent tachyarrhythmia.TROPONIN [id number] 15:14:00 Test Item Value Reference Range Comments TROPONIN I (BEAKER) (test oebu=625) 0.01 ng/mL 0.00-0.03 Troponin I (TnI) levels [...] acute neurological disease, and persistent tachyarrhythmia.BASIC METABOLIC [id number] 15:11:00 Test Item Value Reference Range Comments SODIUM (BEAKER) (test 136 meq/L 136-145 wsjd=018) POTASSIUM (BEAKER) (test 4.3 meq/L 3.5-5.1 bauw=368) CHLORIDE (BEAKER) (test 102 meq/L 98-107 yiec=929) CO2 (BEAKER) (test 27 meq/L 22-29 ijou=010) BLOOD UREA NITROGEN 10 mg/dL 7-21 (BEAKER) (test hwbe=498) CREATININE (BEAKER) (test 0.95 mg/dL 0.57-1.25 luhk=485) GLUCOSE RANDOM (BEAKER) 104 mg/dL 70-105 (test klde=249) CALCIUM (BEAKER) (test 8.9 mg/dL 8.4-10.2 gqxs=422) EGFR (BEAKER) (test mL/min/1.73 sq m INSUFFICIENT CLINICAL DATA xiyn=7639) TO CALCULATE ESTIMATED GFR. HEPATIC FUNCTION [id number] 15:08:00 Test Item Value Reference Range Comments TOTAL PROTEIN (BEAKER) (test nyej=662) 8.0 gm/dL 6.0-8.3 ALBUMIN (BEAKER) (test hism=2703) 4.1 g/dL 3.5-5.0 BILIRUBIN TOTAL (BEAKER) (test ylwt=231) 0.6 mg/dL 0.2-1.2 BILIRUBIN DIRECT (BEAKER) (test kpvc=661) 0.2 mg/dL 0.1-0.5 ALKALINE PHOSPHATASE (BEAKER) (test skdg=726) 90 U/L 40-150 AST (SGOT) (BEAKER) (test ubeb=047) 36 U/L 5-34 ALT (SGPT) (BEAKER) (test jqhh=424) 43 U/L 6-55 [id number] 14:44:00 Test Item Value Reference Range Comments PARTIAL THROMBOPLASTIN TIME (BEAKER) (test 31.5 seconds 22.5-36.0 jgpx=854) PROTHROMBIN TIME/[id number] 14:43:00 Test Item Value Reference Range Comments PROTIME (BEAKER) (test rjjw=439) 16.7 seconds 11.7-14.7 INR (BEAKER) (test ybno=086) 1.4 <=5.9 RECOMMENDED COUMADIN/WARFARIN INR THERAPY RANGESSTANDARD DOSE: 2.0 - 3.0 Includes: PROPHYLAXIS forvenous thrombosis, systemic embolization; TREATMENT for venous thrombosis and/or pulmonary embolus.HIGH RISK: Target INR is 2.5-3.5 for patients with mechanical heart valves.CBC W/PLT COUNT & AUTO [id number] 14:41:00 Test Item Value Reference Range Comments WHITE BLOOD CELL COUNT (BEAKER) (test weeo=521) 7.1 K/ L 3.5-10.5 RED BLOOD CELL COUNT (BEAKER) (test eevb=313) 4.79 M/ L 4.63-6.08 HEMOGLOBIN (BEAKER) (test vjip=089) 13.8 GM/DL 13.7-17.5 HEMATOCRIT (BEAKER) (test iujq=332) 40.3 % 40.1-51.0 MEAN CORPUSCULAR VOLUME (BEAKER) (test uffc=268) 84.1 fL 79.0-92.2 MEAN CORPUSCULAR HEMOGLOBIN (BEAKER) (test 28.8 pg 25.7-32.2 xhec=625) MEAN CORPUSCULAR HEMOGLOBIN CONC (BEAKER) (test 34.2 GM/DL 32.3-36.5 msjn=920) RED CELL DISTRIBUTION WIDTH (BEAKER) (test 13.6 % 11.6-14.4 ssxm=298) PLATELET COUNT (BEAKER) (test miyy=151) 220 K/CU MM 150-450 MEAN PLATELET VOLUME (BEAKER) (test fmsc=872) 10.0 fL 9.4-12.4 NUCLEATED RED BLOOD CELLS (BEAKER) (test 0 /100 WBC 0-0 kddy=471) NEUTROPHILS RELATIVE PERCENT (BEAKER) (test 75 % cefr=429) LYMPHOCYTES RELATIVE PERCENT (BEAKER) (test 18 % mbof=857) MONOCYTES RELATIVE PERCENT (BEAKER) (test 5 % jxcy=682) EOSINOPHILS RELATIVE PERCENT (BEAKER) (test 1 % vfbd=467) BASOPHILS RELATIVE PERCENT (BEAKER) (test 1 % mkef=171) NEUTROPHILS ABSOLUTE COUNT (BEAKER) (test 5.29 K/ L 1.78-5.38 zbtd=434) LYMPHOCYTES ABSOLUTE COUNT (BEAKER) (test 1.29 K/ L 1.32-3.57 keig=225) MONOCYTES ABSOLUTE COUNT (BEAKER) (test 0.38 K/ L 0.30-0.82 jjjn=942) EOSINOPHILS ABSOLUTE COUNT (BEAKER) (test 0.06 K/ L 0.04-0.54 kksl=032) BASOPHILS ABSOLUTE COUNT (BEAKER) (test 0.05 K/ L 0.01-0.08 kpqb=518) IMMATURE GRANULOCYTES-RELATIVE PERCENT (BEAKER) 0 % 0-1 (test xlru=6837)
[2017-12-23 17:54] LABS: Urine Blood NEGATIVE (NEG); Urine Glucose NEGATIVE (NEG); Urine Protein NEGATIVE (NEG); Urine pH 5.5 (5.0-7.0)
[2017-12-23 17:58] LABS: Absolute Lymphocytes (CBC) 1.9 K/uL (0.7-4.9); Absolute Monocytes 0.5 K/uL (0.1-1.3); Absolute Neutrophil 3.4 K/uL (1.8-8.0); Basophils % 0.9 % (0-1.3); Eosinophils % 3.1 % (0-4.4); Hematocrit 40.6 % (39.6-49.0); Lymphocytes % 31.4 % (15.3-44.8); MCH 29.5 pg (27.0-35.0); MCV 86.4 fL (80-100); MPV 8.4 fL (7.6-11.3); Monocytes % 8.9 % (3.3-12.3); RBC Red Blood Cell Count 4.69 M/uL (4.33-5.43)
[2017-12-23 18:11] LABS: Albumin 3.8 g/dL (3.4-5.0); Bilirubin Direct 0.1 mg/dL (0-0.2); Bilirubin Total 0.5 mg/dL (0.2-1.0); Potassium 3.8 mmol/L (3.5-5.1); Protein, Total 7.9 g/dL (6.4-8.2)
--- NOTE | 2017-12-23 18:57 | RAD REPORT ---
EXAM DESCRIPTION: CTAbdomen Pelvis W Contrast - 12/23/2017 6:41 pm CLINICAL HISTORY: Abdominal pain. iv only;Abdominal distention COMPARISON: Abdomen Pelvis W Contrast dated 08/17/2017; Abdomen Pelvis W Contrast dated 10/24/2015Ab domen Pelvis W Contrast dated 08/17/2017; Abdomen Pelvis W Contrast dated 10/24/2015; CT ABD PELVIS W CONTRAST dated 09/02/2014; Angio Aorta For Dissection dated 10/13/2015 TECHNIQUE: Biphasic CT imaging of the abdomen and pelvis was performed with 100 ml non-ionic IV cont rast. All CT scans are performed using dose optimization technique as appropriate and may include automated exposure control or mA/KV adjustment according to patient size. FINDINGS: The lung bases are clear. Fatty liver infiltration is noted. Small enhancing lesion measuring 13 mm in the right lobe of the li tricia is unchanged since comparative study, probably representing benign hemangioma. No intrahepatic bi liary dilatation. The spleen, pancreas, adrenal glands and kidneys show no worrisome finding. Several benign renal cysts are noted. No bowel obstruction, free air, free fluid or abscess. Prominent colonic and sigmoid diverticulosis c herbert is present without diverticulitis. The appendix is normal. Small bilateral fat containing inguina l hernias. No evidence of significant lymphadenopathy. No suspicious bony findings. IMPRESSION: No acute intra-abdominal or pelvic finding.
--- NOTE | 2017-12-23 18:58 | RAD REPORT ---
EXAM DESCRIPTION: US - Abdomen Exam Limited - 12/23/2017 6:34 pm CLINICAL HISTORY: r/o Gallbladder ;Abd pain Right upper quadrant pain. COMPARISON: Abdomen Exam Complete dated 10/25/2015 FINDINGS: The gallbladder demonstrates no gallstones. No pericholecystic fluid or gallbladder wall t hickening. The common bile duct is normal measuring 4 mm. The liver demonstrates fatty liver. IMPRESSION: Negative gallbladder/biliary tree findings.
--- NOTE | 2017-12-23 19:20 | ER ---
Nurse's Notes [facility] Name: Estiven Pena Age: 72 yrs Sex: Male : 1945 Arrival Date: 12/23/2017 Time: 17:10 Bed 13 Private MD: Rashi Rascon R Diagnosis: Epigastric pain Presentation: 12/23 17:19 Presenting complaint: Patient states: Patient reports abdominal pain right above the aj1 umbilicus for the past 45 minutes. Denies nausea. vomiting diarrhea, constipation. Was seen in this emergency room on December 18 for dizziness and sent home with Rx Zofran and Pepcid. Transition of care: patient was not received from another setting of care. Onset of symptoms was December 23, 2017 at 16:45. Risk Assessment: Do you want to hurt yourself or someone else? Patient reports no desire to harm self or others. Initial Sepsis Screen: Does the patient meet any 2 criteria? No. Patient's initial sepsis screen is negative. Does the patient have a suspected source of infection? No. Patient's initial sepsis screen is negative. Care prior to arrival: None. 17:19 Method Of Arrival: Ambulatory [facility] 17:19 Acuity: ZANA 3 aj1 Triage Assessment: 17:25 General: Appears in no apparent distress. comfortable, Behavior is calm, cooperative, aj1 appropriate for age. Pain: Complains of pain in epigastric area Pain currently is 6 out of 10 on a pain scale. Neuro: Level of Consciousness is awake, alert, obeys commands, Speech is normal, Facial symmetry appears normal. Cardiovascular: Patient's skin is warm and dry. Respiratory: Airway is patent Respiratory effort is even, unlabored, Respiratory pattern is regular, symmetrical. GI: Reports upper abdominal pain, Patient currently denies constipation, diarrhea, nausea, vomiting. Derm: Skin is pink, warm \T\ dry. normal. Historical: - Allergies: 17:25 NKDA; aj1 - Home Meds: 17:25 aspirin 81 mg Oral TbEC 1 tab once daily [Active]; atorvastatin Oral [Active]; aj1 metoprolol tartrate intravenous [Active]; - PMHx: 17:25 Anxiety; GERD; High Cholesterol; Hypertension; TIA; aj1 - Immunization history:: Flu vaccine status is unknown. - Social history:: Smoking status: Patient/guardian denies using tobacco. - Ebola Screening: : Patient denies travel to an Ebola-affected area in the 21 days before illness onset. Screenin:49 Abuse screen: Denies threats or abuse. Denies injuries from another. Nutritional mg2 screening: No deficits noted. Tuberculosis screening: No symptoms or risk factors identified. Fall Risk IV access (20 points). Assessment: 17:48 General: Appears in no apparent distress. comfortable, Behavior is calm, cooperative. mg2 Pain: Complains of pain in abdomen and epigastric area Pain does not radiate. Pain currently is 5 out of 10 on a pain scale. Quality of pain is described as aching, Pain began gradually. Neuro: Level of Consciousness is awake, alert, obeys commands, Oriented to person, place, time, situation. Cardiovascular: Capillary refill < 3 seconds Patient's skin is warm and dry. Respiratory: Airway is patent Respiratory effort is even, unlabored, Respiratory pattern is regular, symmetrical. GI: Abdomen is flat, non-distended, Abd is soft and non tender in abdomen and epigastric area. EENT: No signs and/or symptoms were reported regarding the EENT system. Derm: Skin is intact, Skin is pink, warm \T\ dry. normal. Musculoskeletal: 19:48 GI: Bowel sounds present X 4 quads. mg2 Vital Signs: 17:25 BP 136 / 74; Pulse 60; Resp 18; Temp 97.5; Pulse Ox 99% on R/A; Weight 71.67 kg (R); aj1 Height 5 ft. 6 in. (167.64 cm) (R); Pain 6/10; 19:48 BP 135 / ???; Pulse 74; Resp 18; Pulse Ox 100% on R/A; Pain 0/10; mg2 17:25 Body Mass Index 25.50 (71.67 kg, 167.64 cm) aj1 ED Course: 17:10 Patient arrived in ED. mr 17:10 Rashi Rascon MD is Private Physician. mr 17:24 Triage completed. aj1 17:25 Arm band placed on Patient placed in an exam room. aj1 17:30 Jesus Blount PA is PHCP. jr8 17:30 Lewis Gann MD is Attending Physician. jr8 17:42 Laith Flor RN is Primary Nurse. mg2 17:48 Patient has correct armband on for positive identification. Placed in gown. Bed in low mh5 position. Call light in reach. Side rails up X 1. Pulse ox on. NIBP on. 17:48 Urine collected: clean catch specimen, clear. mh5 17:50 Initial lab(s) drawn, by me, sent to lab. Inserted saline lock: 20 gauge in right em antecubital area, using aseptic technique. Blood collected. 18:17 Ultrasound completed. Patient tolerated well. sg3 18:34 US Abdomen Limited In Process Unspecified. EDMS 18:37 CT completed. Patient moved to CT via wheelchair. Patient moved back from CT. cw1 18:41 CT Abd/Pelvis - W/Contrast In Process Unspecified. EDMS 19:19 Rashi Rascon MD is Referral Physician. jr8 19:19 Grady Michel MD is Referral Physician. jr8 19:48 No provider procedures requiring assistance completed. IV discontinued, intact, mg2 bleeding controlled, No redness/swelling at site. Pressure dressing applied. Administered Medications: No medications were administered Outcome: 19:19 Discharge ordered by . jr8 19:47 Discharged to home ambulatory. mg2 19:47 Condition: good 19:47 Discharge instructions given to patient, Instructed on discharge instructions, follow up and referral plans. Demonstrated understanding of instructions, follow-up care. 19:48 Patient left the ED. mg2 Signatures: Dispatcher [employer] Yamila Burton, RN RN [email or web address] Haley Juarez mr Manuel, Qamar, INTELLIGENCE OPERATIONS SPECIALIST INTELLIGENCE OPERATIONS SPECIALIST Sowmya Alvarenga 1 Jesus Blount PA PA Haley Moses [facility] Pat Chavarria 3 Laith Flor, BANDAR PORTILLO mg2
--- NOTE | 2017-12-23 19:20 | EDPHYS ---
Physician Documentation [facility] Name: Estiven Pena Age: 72 yrs Sex: Male : 1945 Arrival Date: 12/23/2017 Time: 17:10 Bed 13 Private MD: Rashi Rascon R ED Physician Lewis Gann HPI: 12/23 18:28 This 72 yrs old Male presents to ER via Ambulatory with complaints of jr8 Abdominal Pain. 18:28 The patient presents with abdominal pain in the epigastric area, in the upper abdomen. jr8 Onset: The symptoms/episode began/occurred acutely, today. The symptoms do not radiate. Associated signs and symptoms: Pertinent positives: nausea. The symptoms are described as stabbing. Modifying factors: The symptoms are alleviated by nothing, the symptoms are aggravated by nothing. Severity of pain: At its worst the pain was moderate in the emergency department the pain is unchanged. The patient has not experienced similar symptoms in the past. Historical: - Allergies: 17:25 NKDA; aj1 - Home Meds: 17:25 aspirin 81 mg Oral TbEC 1 tab once daily [Active]; atorvastatin Oral [Active]; aj1 metoprolol tartrate intravenous [Active]; - PMHx: 17:25 Anxiety; GERD; High Cholesterol; Hypertension; TIA; aj1 - Immunization history:: Flu vaccine status is unknown. - Social history:: Smoking status: Patient/guardian denies using tobacco. - Ebola Screening: : Patient denies travel to an Ebola-affected area in the 21 days before illness onset. ROS: 18:28 Eyes: Negative for injury, pain, redness, and discharge, ENT: Negative for injury, jr8 pain, and discharge, Neck: Negative for injury, pain, and swelling, Cardiovascular: Negative for chest pain, palpitations, and edema, Respiratory: Negative for shortness of breath, cough, wheezing, and pleuritic chest pain, Back: Negative for injury and pain, MS/Extremity: Negative for injury and deformity, Skin: Negative for injury, rash, and discoloration, Neuro: Negative for headache, weakness, numbness, tingling, and seizure. 18:28 Abdomen/GI: Positive for abdominal pain, nausea, Negative for diarrhea, abdominal cramps, abdominal distension, anorexia, dysphagia, hematemesis, black/tarry stool, rectal pain, rectal bleeding, bowel incontinence, flatulence. Exam: 18:30 Cardiovascular: Regular rate and rhythm with a normal S1 and S2. No gallops, murmurs, jr8 or rubs. Normal PMI, no JVD. No pulse deficits. Respiratory: Lungs have equal breath sounds bilaterally, clear to auscultation and percussion. No rales, rhonchi or wheezes noted. No increased work of breathing, no retractions or nasal flaring. Back: No spinal tenderness. No costovertebral tenderness. Full range of motion. Skin: Warm, dry with normal turgor. Normal color with no rashes, no lesions, and no evidence of cellulitis. MS/ Extremity: Pulses equal, no cyanosis. Neurovascular intact. Full, normal range of motion. Neuro: Awake and alert, GCS 15, oriented to person, place, time, and situation. Cranial nerves II-XII grossly intact. Motor strength 5/5 in all extremities. Sensory grossly intact. Cerebellar exam normal. Normal gait. 18:30 Abdomen/GI: Inspection: abdomen appears normal, Bowel sounds: active, all quadrants, Palpation: soft, in all quadrants, mild abdominal tenderness, in the epigastric area, midd upper abdomen, mass, is not appreciated, rebound tenderness, is not appreciated, voluntary guarding, is not appreciated, involuntary guarding, is not appreciated, no appreciated organomegaly, Indicators: McBurney's point is not tender, Mendoza's sign is negative, Rovsing's sign is negative, Obturator sign is negative, Psoas sign is negative, Liver: no appreciated palpable abnormalities, tenderness, is not appreciated. Vital Signs: 17:25 BP 136 / 74; Pulse 60; Resp 18; Temp 97.5; Pulse Ox 99% on R/A; Weight 71.67 kg (R); aj1 Height 5 ft. 6 in. (167.64 cm) (R); Pain 6/10; 19:48 BP 135 / ???; Pulse 74; Resp 18; Pulse Ox 100% on R/A; Pain 0/10; mg2 17:25 Body Mass Index 25.50 (71.67 kg, 167.64 cm) aj1 MDM: 17:30 Patient medically screened. jr8 19:13 Data reviewed: vital signs, nurses notes, lab test result(s), radiologic studies, CT jr8 scan, and as a result, I will discharge patient. Data interpreted: Pulse oximetry: on room air is 99 %. Interpretation: normal. Counseling: I had a detailed discussion with the patient and/or guardian regarding: the historical points, exam findings, and any diagnostic results supporting the discharge/admit diagnosis, lab results, radiology results, the need for outpatient follow up, a family practitioner, a cell stripper final, to return to the emergency department if symptoms worsen or persist or if there are any questions or concerns that arise at home. 19:20 Differential diagnosis: AAA, cholecystitis, Cholelithiasis, gastritis, gastroesophageal jr8 reflux disease, Mesenteric ischemia or infarction, myocardia ischemia or infarction, non-specific abd pain, pancreatitis, Peptic Ulcer Disease, Perf. Duodenal Ulcer, Perf. Gastric Ulcer. Special discussion: Based on the patient's Hx, exam, and Dx evaluation, there is no indication for emergent surgery or inpatient Tx. It is understood by the patient/guardian that if the Sx's persist or worsen they need to return immediately for re-evaluation. 12/23 17:30 Order name: Basic Metabolic Panel; Complete Time: 18:16 12/23 17:30 Order name: CBC with Diff; Complete Time: 18:16 12/23 17:30 Order name: Creatinine for Radiology; Complete Time: 18:16 12/23 17:30 Order name: Hepatic Function; Complete Time: 18:16 12/23 17:30 Order name: Lipase; Complete Time: 18:16 12/23 17:50 Order name: Urine Dipstick--Ancillary (enter results); Complete Time: 17:55 ag 12/23 17:30 Order name: IV Saline Lock; Complete Time: 18:14 12/23 17:30 Order name: Labs collected and sent; Complete Time: 18:14 12/23 17:30 Order name: Urine Dipstick-Ancillary (obtain specimen); Complete Time: 17:47 12/23 17:44 Order name: US Abdomen Limited; Complete Time: 19:12/23 18:16 Order name: CT Abd/Pelvis - W/Contrast; Complete Time: 19:08 12/23 19:14 Order name: EKG; Complete Time: 19:12/23 19:14 Order name: EKG - Nurse/Tech; Complete Time: 19:40 jr8 Administered Medications: No medications were administered Disposition: 12/24 10:33 Co-signature as Attending Physician, Lewis Gann MD. Disposition: 12/23/17 19:19 Discharged to Home. Impression: Epigastric pain. - Condition is Stable. - Discharge Instructions: Abdominal Pain, Adult, Gastritis, Adult. - Medication Reconciliation Form, Thank You Letter, Antibiotic Education, Prescription Opioid Use form. - Follow up: Rashi Rascon MD; When: 5 - 6 days; Reason: Recheck today's complaints, Continuance of care, Re-evaluation by your physician. Follow up: Grady Michel MD; When: 2 - 3 days; Reason: Recheck today's complaints, Continuance of care, Re-evaluation by your physician. - Problem is new. - Symptoms are unchanged. Signatures: Dispatcher [employer] EDMO Yamila Thorne RN RN aj1 Jesus Blount PA PA jr8 Lewis Gann MD MD Laith Flor RN RN mg2 Corrections: (The following items were deleted from the chart) 12/23 19:48 19:19 12/23/2017 19:19 Discharged to Home. Impression: Epigastric pain. Condition is mg2 Stable. Forms are Medication Reconciliation Form, Thank You Letter, Antibiotic Education, Prescription Opioid Use. Follow up: Rahsi Rascon; When: 5 - 6 days; Reason: Recheck today's complaints, Continuance of care, Re-evaluation by your physician. Follow up: Grady Michel; When: 2 - 3 days; Reason: Recheck today's complaints, Continuance of care, Re-evaluation by your physician. Problem is new. Symptoms are unchanged. jr8
[2017-12-23 19:54] VITALS: BP 136/74; TEMP 97.5
[2017-12-23 19:55] VITALS: O2SAT 100
--- NOTE | 2017-12-24 06:35 | EKG ---
Test Date: 2017-12-23 Test Time: 19:26:14 Radio Frequency Engineer: JUDSON MEASUREMENT RESULTS: Intervals: Rate: 61 GA: 172 QRSD: 76 QT: 440 QTc: 442 [place]: P: 62 GA: 172 QRS: 12 T: 39 INTERPRETIVE STATEMENTS: Normal sinus rhythm Nonspecific T wave abnormality Abnormal ECG Compared to ECG 12/18/2017 19:09:49 T-wave abnormality now present Sinus bradycardia no longer present Electronically Signed On 12-24-17 06:34:36 CDT by Ha Hernandez
== END 2017-12-23 19:48 | disposition home or self-care (01) ==
LOC: ER 17:07
DX: R10.13 Epigastric pain (principal); I10 Essential (primary) hypertension; E78.00 Pure hypercholesterolemia, unspecified; F41.9 Anxiety disorder, unspecified; Z79.82 Long term (current) use of aspirin
CPT/HCPCS: 36415; 74177; 76705; 80048; 80076; 81003; 83690; 85025; 93005; 99284; Q9967

== ENCOUNTER 2023-04-03 22:24 | Observation (INO) | payer OTHER ==
--- OUTSIDE RECORDS SUMMARY | 2023-04-03 22:33 | XMS REPORT | Continuity of Care Document ---
:1945 Author Organization [facility] t Address [address] [place] [address] [address] [place] [address] Care Team Providers Name Role Phone Hayden Sharron GUILLERMO Primary Care Physician GAVIN HOLLY Attending Clinician Unavailable TAMEKA GIBBS Attending Clinician Unavailable SAMPSON PITT Attending Clinician Unavailable SAMPSON PITT Attending Clinician Unavailable Gavin Holly MD Attending Clinician 1, [facility] Attending Clinician Unavailable Sampson Pitt MD Attending Clinician Doctor Unassigned, [place] Attending Clinician Unavailable 2, [facility] Attending Clinician Unavailable Yunier Byrne MD Attending Clinician Alejandro Green MD Attending Clinician ALEJANDRO GREEN Attending Clinician Unavailable Tameka Gibbs MD Attending Clinician MELODY MELENDREZ Attending Clinician Unavailable Melody Melendrez MD Attending Clinician ANTHONY HOPE Attending Clinician Unavailable ANTHONY HOPE Attending Clinician Unavailable Louann Leija MD Attending Clinician Anthony Hope MD Attending Clinician Minnie Dyson MD Attending Clinician MINNIE DYSON Attending Clinician Unavailable NINA BARRY Attending Clinician Unavailable MICHELLE BENÍTEZ Attending Clinician Unavailable Michelle Benítez DO Attending Clinician KIM AVILEZ Attending Clinician Unavailable Kim Avilez MD Attending Clinician Nina Mendoza Attending Clinician Lucho [facility], Sabino Rabago Attending Clinician [phone] Maricruz Nolen RN Attending Clinician Unavailable Michael Alcaraz MD Attending Clinician MICHAEL ALCARAZ Attending Clinician Unavailable Alok Garcia MD Attending Clinician JOSE ALVARADO Attending Clinician Unavailable Jose Alvarado MD Attending Clinician Millie LEUNG Attending Clinician Unavailable Millie Perez Attending Clinician EbМарина Eastman Attending Clinician Mohit Cuba MD Attending Clinician MOHIT CUBA Attending Clinician Unavailable RASHI MANZO Attending Clinician Unavailable Rashi Manzo MD Attending Clinician JANNIE YUEN Attending Clinician Unavailable TAMEKA GIBBS Admitting Clinician Unavailable Tameka Gibbs MD Admitting Clinician MICHAEL ALCARAZ Admitting Clinician Unavailable Michael Alcaraz MD Admitting Clinician Millie LEUNG Admitting Clinician Unavailable Mohit Cuba MD Admitting Clinician MOHIT CUBA Admitting Clinician Unavailable RASHI MANZO Admitting Clinician Unavailable JANNIE YUEN Admitting Clinician Unavailable Payers Payer Name Policy Type Policy Number Effective Date Expiration Date [facility] [id number] 2022 CLASSIC NO PREMIUM 00:00:00 [facility] [employer] [id number] 2021spring 00:00:00 Problems Condition Condition Condition Status Onset Resolution Last Treating Co mments Source Name Details Category Date Date Treatment Clinician Date Encounter Encounter Disease Active Overview: Univers for for 2-21 Form[place] ity of colonoscop colonoscop 00:00: g of this [place] y y 00 note Medical following following might be Br anch surgery surgery different for colon for colon from the cancer cancer original. Added automatic ally from request for surgery [id number] Paroxysmal Paroxysmal Disease Active U nivers atrial atrial 9-28 [place] of fibr[place] with 00 Medical rapid rapid Branch ventricula ventricula r response r response Chest Chest Disease Active Univers pain, pain, 8-28 ity of unspecifie unspecifie 00:[place] d type d type 00 Medical Branch Dyslipidem Dyslipidem Disease Active U nivers ia ia 8-28 ity of 00:00: [place] [facility] Colon Colon Disease Active Univers adenocarci adenocarci 8-07 it y of noma noma 00:00: Medical Branch Preop Preop Disease Active Univers cardiovasc cardiovasc 6-08 it y of ular exam ular exam [place] Essential Essential Disease Active Uni vers hypertensi hypertensi 6-08 it y of on on 00:00: [place] [facility] History of History of Disease Active U nivers TIA TIA 6-08 ity of (transient (transient 00:[place] ischemic ischemic 00 Medica l attack) attack) Branch PFO PFO Disease Active Univers (patent (patent 608 ity of foramen foramen 00:00: [place] ovale) ovale) 00 Medical Branch Anemia Anemia Disease Active Univers 6-08 ity of 00:00: [place] 00 Medical Branch Colonic Colonic Disease Active Univers mass mass 6-08 ity of 00:00: [place] 00 Medical Branch Flank pain Flank pain Disease Active U nivers 6-05 ity of 00:00: [place] 00 Medical Branch TIA TIA Disease Active [facility] (transient (transient 07-12 Anitha kes ischemic ischemic 00:00: Medica l attack) attack) Center Chest pain Chest pain Disease Active U nivers 2-19 ity of 00:00: [place] [address] Medical Branch Allergies, Adverse Reactions, Alerts Allergy Allergy Status Severity Reaction(s) Onset Inactive Treating Comm ents Source Name Type Date Date Clinician NO KNOWN Drug Active Univers ALLERGIE Class ity of S [facility] Social History Social Habit Start Date Stop Date Quantity Comments Source Gender identity Universit y of [facility] Sexual orientation Univer sity of [facility] History of tobacco Passive smoker Un iversity of use [facility] History of Social 2022-12-15 2022-12-15 Univers ity of function 00:00:00 00:00:00 [facility] Exposure to 2022-09-17 2022-09-27 Not sure University of SARS-CoV-2 (event) 00:00:00 14:27:00 [place] [facility] History SDOH Food 2022-02-14 2022-02-14 1 Univers ity of Worry 00:00:00 00:00:00 [place] [facility] History SDOH Food 2022-02-14 2022-02-14 1 Univers ity of Scarcity 00:00:00 00:00:00 [place] [facility] History SDOH 2022-02-14 2022-02-14 2 University o f Transport Med 00:00:00 00:00:00 [place] Medic al Branch History SDOH 2022-02-14 2022-02-14 2 University o f Transport Non-Med 00:00:00 00:00:00 [place] M edical Branch Tobacco use and 2022 2022 Smokeless Universit y of exposure 00:00:00 00:00:00 tobacco non-user [place] Me dical Branch Alcohol intake 2017-07-12 2017-07-[address] [facility] 00:[facility]:00 00:00:00 non-drinker of Medical Ce nter alcohol (finding) Alcohol Comment 2017-07-12 2017-07-[address] [facility] 00:00:00 00:00:00 beer 4 years ago [facility] Sex Assigned At [birth year] KATHY Gamboa 00:00:00 [facility] Smoking Status Start Date Stop Date Source Never smoked tobacco [facility] Medications Ordered Filled Start Stop Current Ordering Indication Dosage Frequency Signature Comments Components Source Medication Medication Date Date Medication? Clinician (SIG) Name Name apixaban 5 2022-06 Yes 1358 5mg Take 1 Unive rs mg tablet 0-05 tablet by ity o f 00:00: mouth in [place] 00 the Medical morning Branch and 1 tablet in the evening. Indication s: atrial fibrillati on METOPROLOL 2022-0 Yes TAKE ONE Uni vers SUCCINATE 9-15 TABLET BY ity o f XL 50 mg 24 00:00: MOUTH [place] hr tablet 00 EVERY Medical MORNING Branch AND TAKE ONE TABLET BY MOUTH EVERY EVENING METOPROLOL 2022-0 Yes TAKE ONE Uni vers SUCCINATE 9-15 TABLET BY ity o f XL 50 mg 24 00:00: MOUTH [place] hr tablet 00 EVERY Medical MORNING Branch AND TAKE ONE TABLET BY MOUTH EVERY EVENING omeprazole 2022-0 Yes 20mg Take 1 Unive rs 20 mg 7-12 capsule by ity of capsule 16:32: mouth in [place] [address] the Medical morning. Branch omeprazole 3-0 Yes 20mg Take 1 Unive rs 20 mg 7-12 capsule by ity of capsule 16:32: mouth in [place] [address] the Medical morning. Branch omeprazole 3-0 Yes 20mg Take 1 Unive rs 20 mg 7-12 capsule by ity of capsule 16:32: mouth in [place] [address] the Medical morning. Branch omeprazole 3-0 Yes 20mg Take 1 Unive rs 20 mg 7-12 capsule by ity of capsule 16:32: mouth in [place] [address] the Medical morning. Branch omeprazole 2023-0 Yes 20mg Take 1 Unive rs 20 mg 7-12 capsule by ity of capsule 16:32: mouth in [place] [address] the Medical morning. Branch omeprazole 2023-0 Yes 20mg Take 1 Unive rs 20 mg 7-12 capsule by ity of capsule 16:32: mouth in [place] [address] the Medical morning. Branch omeprazole 2023-0 Yes 20mg Take 1 Unive rs 20 mg 7-12 capsule by ity of capsule 16:32: mouth in [place] [address] the Medical morning. Branch omeprazole 2023-0 Yes 20mg Take 1 Unive rs 20 mg 7-12 capsule by ity of capsule 16:32: mouth in [place] [address] the Medical morning. Branch omeprazole 3-0 Yes 20mg Take 1 Unive rs 20 mg 7-12 capsule by ity of capsule 16:32: mouth in [place] 43 the Medical morning. Branch MAGNESIUM 3-0 2023- No 400mg Take 400 Un ashutosh ORAL 7-12 07-12 mg by ity of 16:30: 00:00 mouth. [place] 45 :00 Medical Branch MAGNESIUM 3-0 2023- No 400mg Take 400 Un ashutosh ORAL 7-12 07-12 mg by ity of 16:30: 00:00 mouth. [place] 45 :00 Medical Branch atorvastati 3-0 Yes 40mg Take 1 Univ ers n 40 mg 7-12 tablet by ity of tablet 16:12: mouth at [place] [address] bedtime. Medical Branch lisinopriL 3-0 Yes 10mg Take 0.5 Uni vers 20 mg 7-12 tablets by ity of tablet 16:12: mouth [place] [address] every Medical evening. Branch atorvastati 3-0 Yes 40mg Take 1 Univ ers n 40 mg 7-12 tablet by ity of tablet 16:12: mouth at [place] [address] bedtime. Medical Branch lisinopriL 3-0 Yes 10mg Take 0.5 Uni vers 20 mg 7-12 tablets by ity of tablet 16:12: mouth [place] [address] every Medical evening. Branch atorvastati 3-0 Yes 40mg Take 1 Univ ers n 40 mg 7-12 tablet by ity of tablet 16:12: mouth at [place] [address] bedtime. Medical Branch lisinopriL 3-0 Yes 10mg Take 0.5 Uni vers 20 mg 7-12 tablets by ity of tablet 16:12: mouth [place] [address] every Medical evening. Branch atorvastati 2023-0 Yes 40mg Take 1 Univ ers n 40 mg 7-12 tablet by ity of tablet 16:12: mouth at [place] [address] bedtime. Medical Branch lisinopriL 2023-0 Yes 10mg Take 0.5 Uni vers 20 mg 7-12 tablets by ity of tablet 16:12: mouth [place] 46 every Medical evening. Branch atorvastati 2023-0 Yes 40mg Take 1 Univ ers n 40 mg 7-12 tablet by ity of tablet 16:12: mouth at [place] [address] bedtime. Medical Branch lisinopriL 2023-0 Yes 10mg Take 0.5 Uni vers 20 mg 7-12 tablets by ity of tablet 16:12: mouth [place] 46 every Medical evening. Branch atorvastati 2022-0 Yes 40mg Take 1 Univ ers n 40 mg 7-12 tablet by ity of tablet 16:12: mouth at [place] 46 bedtime. Medical Branch lisinopriL 2022-0 Yes 10mg Take 0.5 Uni vers 20 mg 7-12 tablets by ity of tablet 16:12: mouth [place] 46 every Medical evening. Branch atorvastati 2022-0 Yes 40mg Take 1 Univ ers n 40 mg 7-12 tablet by ity of tablet 16:12: mouth at [place] 46 bedtime. Medical Branch lisinopriL 2022-0 Yes 10mg Take 0.5 Uni vers 20 mg 7-12 tablets by ity of tablet 16:12: mouth [place] 46 every Medical evening. Branch atorvastati 2022-0 Yes 40mg Take 1 Univ ers n 40 mg 7-12 tablet by ity of tablet 16:12: mouth at [place] 46 bedtime. Medical Branch lisinopriL 2022-0 Yes 10mg Take 0.5 Uni vers 20 mg 7-12 tablets by ity of tablet 16:12: mouth [place] 46 every Medical evening. Branch atorvastati 2022-0 Yes 40mg Take 1 Univ ers n 40 mg 7-12 tablet by ity of tablet 16:12: mouth at [place] 46 bedtime. Medical Branch lisinopriL 2022-0 Yes 10mg Take 0.5 Uni vers 20 mg 7-12 tablets by ity of tablet 16:12: mouth [place] 46 every Medical evening. Branch MAGNESIUM 2022-0 Yes 400mg Take 400 Uni vers ORAL 7-12 mg by ity of 15:42: mouth. [place] 28 Medical Branch atorvastati 2022-0 Yes 40mg Take 1 Univ ers n 40 mg 7-12 tablet by ity of tablet 15:42: mouth at [place] 27 bedtime. Medical Branch lisinopriL 2022-0 Yes 10mg Take 0.5 Uni vers 20 mg 7-12 tablets by ity of tablet 15:42: mouth [place] 23 every Medical evening. Branch simethicone 2022-0 2022- No PRN, Unive rs (GAS RELIEF 12-15 Starting ity of (SIMETHICON 14:07: 14:37 on Fri Bill as E)) 40 00 :08 12/15/22 at Medical mg/0.6 mL 0907, Branch drops Until Sun12/15/22 at 0937, Routine, Intra-op water for 202- No PRN, Univers irrigation 12-15-30 Starting ity of irrigation 14:07: 14:37 [place] Sun [place] solution 00 :08 12/15/22 at Medic al 0907, Branch Until Sun12/15/22 at 0937, Routine, Intra-op lactated 2022-0 2022- No 1000mL at 42 Unive rs ringers IV 12-15 06-30 mL/hr, ity of infusion 12:45: 12:58 1,000 mL, Bill as 1,000 mL 00 :00 IV Medical Infusion, Branch ONCE, 1 dose, On Sun12/15/22 at 0745, Routine, DSU Pre-op lactated 2022-0 2022- No 1000mL at 42 Unive rs ringers IV 12-15 06-30 mL/hr, ity of infusion 12:45: 12:58 1,000 mL, Bill as 1,000 mL 00 :00 IV Medical Infusion, Branch ONCE, 1 dose, On Sun12/15/22 at 0745, Routine, DSU Pre-op MAGNESIUM 2022-0 Yes 400mg Take 400 Uni vers ORAL 6-30 mg by ity of 10:49: mouth. [address] Branch atorvastati 2022-0 Yes 40mg Take 1 Univ ers n 40 mg 6-30 tablet by ity of tablet 10:49: mouth at [place] [address] bedtime. Medical Branch lisinopriL 2022-0 Yes 10mg Take 0.5 Uni vers 20 mg 6-30 tablets by ity of tablet 10:49: mouth [place] [address] every Medical evening. Branch omeprazole 3-0 Yes 20mg Take 1 Unive rs 20 mg 6-30 capsule by ity of capsule 10:49: mouth in [place] [address] the Medical morning. Branch MAGNESIUM 3-0 Yes 400mg Take 400 Uni vers ORAL 6-30 mg by ity of 10:49: mouth. [address] Branch atorvastati 3-0 Yes 40mg Take 1 Univ ers n 40 mg 6-30 tablet by ity of tablet 10:49: mouth at [place] [address] bedtime. Medical Branch lisinopriL 2023-0 Yes 10mg Take 0.5 Uni vers 20 mg 6-30 tablets by ity of tablet 10:49: mouth [place] [address] every Medical evening. Branch omeprazole 2023-0 Yes 20mg Take 1 Unive rs 20 mg 6-30 capsule by ity of capsule 10:49: mouth in [place] [address] the Medical morning. Branch MAGNESIUM 2023-0 Yes 400mg Take 400 Uni vers ORAL 6-30 mg by ity of 10:49: mouth. [place] [address] Medical Branch atorvastati 2023-0 Yes 40mg Take 1 Univ ers n 40 mg 6-30 tablet by ity of tablet 10:49: mouth at [place] [address] bedtime. Medical Branch lisinopriL 2023-0 Yes 10mg Take 0.5 Uni vers 20 mg 6-30 tablets by ity of tablet 10:49: mouth [place] [address] every Medical evening. Branch omeprazole 2023-0 Yes 20mg Take 1 Unive rs 20 mg 6-30 capsule by ity of capsule 10:49: mouth in [place] [address] the Medical morning. Branch MAGNESIUM 2023-0 Yes 400mg Take 400 Uni vers ORAL 6-30 mg by ity of 10:49: mouth. [place] [address] Medical Branch atorvastati 3-0 Yes 40mg Take 1 Univ ers n 40 mg 6-30 tablet by ity of tablet 10:49: mouth at [place] [address] bedtime. Medical Branch lisinopriL 3-0 Yes 10mg Take 0.5 Uni vers 20 mg 6-30 tablets by ity of tablet 10:49: mouth [place] [address] every Medical evening. Branch omeprazole 2023-0 Yes 20mg Take 1 Unive rs 20 mg 6-30 capsule by ity of capsule 10:49: mouth in [place] [address] the Medical morning. Branch omeprazole 2023-0 Yes 20mg Take 1 Unive rs 20 mg 6-30 capsule by ity of capsule 10:49: mouth in [place] [address] the Medical morning. Branch IRON-VITAMI 3-0 2022- No Take by Un ashutosh N B COMPLEX 12-15 mouth. ity o f WITH C ORAL 09:51: 00:00 [place] 57 :00 Medical Branch IRON-VITAMI 2022-0 2022- No Take by Un ashutosh N B COMPLEX 6-30 06-30 mouth. ity o f WITH C ORAL 09:51: 00:00 [place] 57 :00 Medical Branch apixaban 5 2022-0 Yes 1358 5mg Take 1 Unive rs mg tablet 6-30 tablet by ity o f 00:00: mouth in [place] 00 the Medical morning Branch and 1 tablet in the evening. Indication s: atrial fibrillati on apixaban 5 2022-0 Yes 1358 5mg Take 1 Unive rs mg tablet 6-30 tablet by ity o f 00:00: mouth in [place] 00 the Medical morning Branch and 1 tablet in the evening. Indication s: atrial fibrillati on apixaban 5 2022-0 Yes 1358 5mg Take 1 Unive rs mg tablet 6-30 tablet by ity o f 00:00: mouth in [place] 00 the Medical morning Branch and 1 tablet in the evening. Indication s: atrial fibrillati on apixaban 5 2022-0 Yes 1358 5mg Take 1 Unive rs mg tablet 6-30 tablet by ity o f 00:00: mouth in [place] 00 the Medical morning Branch and 1 tablet in the evening. Indication s: atrial fibrillati on apixaban 2022-0 Yes 1358 5mg Take 1 Unive rs mg tablet 6-30 tablet by ity o f 00:00: mouth in [place] 00 the Medical morning Branch and 1 tablet in the evening. Indication s: atrial fibrillati on apixaban 5 2022-0 Yes 1358 5mg Take 1 Unive rs mg tablet 6-30 tablet by ity o f 00:00: mouth in [place] 00 the Medical morning Branch and 1 tablet in the evening. Indication s: atrial fibrillati on apixaban 5 2022-0 Yes 1358 5mg Take 1 Unive rs mg tablet 6-30 tablet by ity o f 00:00: mouth in [place] 00 the Medical morning Branch and 1 tablet in the evening. Indication s: atrial fibrillati on apixaban 5 2022-0 Yes 1358 5mg Take 1 Unive rs mg tablet 6-30 tablet by ity o f 00:00: mouth in [place] 00 the Medical morning Branch and 1 tablet in the evening. Indication s: atrial fibrillati on apixaban 5 2022-0 Yes 1358 5mg Take 1 Unive rs mg tablet 6-30 tablet by ity o f 00:00: mouth in [place] 00 the Medical morning Branch and 1 tablet in the evening. Indication s: atrial fibrillati on apixaban 5 2022-0 Yes 1358 5mg Take 1 Unive rs mg tablet 6-30 tablet by ity o f 00:00: mouth in [place] 00 the Medical morning Branch and 1 tablet in the evening. Indication s: atrial fibrillati on apixaban 5 3-0 Yes 1358 5mg Take 1 Unive rs mg tablet 6-30 tablet by ity o f 00:00: mouth in [place] 00 the Medical morning Branch and 1 tablet in the evening. Indication s: atrial fibrillati on apixaban 5 2022-0 2023- No 1358 5mg Take 1 Univ ers mg tablet 6-30 10-05 tablet by ity of 00:00: 00:00 mouth in [place] 00 :00 the Medical morning Branch and 1 tablet in the evening. Indication s: atrial fibrillati on lisinopriL 2022-0 Yes 10mg Take 0.5 Uni vers 20 mg 6-26 tablets by ity of tablet 17:25: mouth [place] 09 every Medical evening. Branch omeprazole 2022-0 Yes 20mg Take 1 Unive rs 20 mg 6-26 capsule by ity of capsule 13:17: mouth in [place] 08 the Medical morning. Branch IRON-VITAMI 2022-0 Yes Take by Uni vers N B COMPLEX 6-26 mouth. ity of WITH C ORAL 12:37: [place] [address] Medical Branch MAGNESIUM 3-0 Yes 400mg Take 400 Uni vers ORAL 6-26 mg by ity of 12:37: mouth. [place] [address] Medical Branch atorvastati 2022-0 Yes 40mg Take 1 Univ ers n 40 mg 6-26 tablet by ity of tablet 12:37: mouth at [place] [address] bedtime. Medical Branch lisinopriL 3-0 Yes 20mg Take 1 Unive rs 20 mg 4-12 tablet by ity of tablet 14:36: mouth [place] 21 every Medical morning. Branch lisinopriL 2023-0 Yes 20mg Take 1 Unive rs 20 mg 4-12 tablet by ity of tablet 14:36: mouth [place] 21 every Medical morning. Branch lisinopriL 3-0 Yes 20mg Take 1 Unive rs 20 mg 3-03 tablet by ity of tablet 11:52: mouth [place] 56 every Medical morning. Branch lisinopriL 2023-0 Yes 20mg Take 1 Unive rs 20 mg 3-03 tablet by ity of tablet 11:52: mouth [place] 56 every Medical morning. Branch lisinopriL 2022-0 Yes 20mg Take 1 Unive rs 20 mg 3-03 tablet by ity of tablet 11:52: mouth [place] 56 every Medical morning. Branch lisinopriL 2022-0 Yes 20mg Take 1 Unive rs 20 mg 3-03 tablet by ity of tablet 11:52: mouth [place] 56 every Medical morning. Branch IRON-VITAMI 0 Yes Take by Uni vers N B COMPLEX 3-03 mouth. ity of WITH C ORAL 11:24: [place] [address] Medical Branch MAGNESIUM 2022-0 Yes 400mg Take 400 Uni vers ORAL 3-03 mg by ity of 11:24: mouth. [place] [address] Medical Branch atorvastati 0 Yes 40mg Take 1 Univ ers n 40 mg 3-03 tablet by ity of tablet 11:24: mouth at [place] [address] bedtime. Medical Branch IRON-VITAMI 2022-0 Yes Take by Uni vers N B COMPLEX 3-03 mouth. ity of WITH C ORAL 11:24: [place] [address] Medical Branch MAGNESIUM 2022-0 Yes 400mg Take 400 Uni vers ORAL 3-03 mg by ity of 11:24: mouth. [place] [address] Medical Branch atorvastati 0 Yes 40mg Take 1 Univ ers n 40 mg 3-03 tablet by ity of tablet 11:24: mouth at [place] [address] bedtime. Medical Branch IRON-VITAMI 2022-0 Yes Take by Uni vers N B COMPLEX 3-03 mouth. ity of WITH C ORAL 11:24: [place] [address] Medical Branch MAGNESIUM 2022-0 Yes 400mg Take 400 Uni vers ORAL 3-03 mg by ity of 11:24: mouth. [place] [address] Medical Branch atorvastati 2022-0 Yes 40mg Take 1 Univ ers n 40 mg 3-03 tablet by ity of tablet 11:24: mouth at [place] [address] bedtime. Medical Branch IRON-VITAMI 2022-0 Yes Take by Uni vers N B COMPLEX 3-03 mouth. ity of WITH C ORAL 11:24: [place] [address] Medical Branch MAGNESIUM 3-0 Yes 400mg Take 400 Uni vers ORAL 3-03 mg by ity of 11:24: mouth. [place] [address] Medical Branch atorvastati 2022-0 Yes 40mg Take 1 Univ ers n 40 mg 3-03 tablet by ity of tablet 11:24: mouth at [place] [address] bedtime. Medical Branch IRON-VITAMI 2022-0 Yes Take by Uni vers N B COMPLEX 3-03 mouth. ity of WITH C ORAL 11:24: [place] [address] Medical Branch MAGNESIUM 2022-0 Yes 400mg Take 400 Uni vers ORAL 3-03 mg by ity of 11:24: mouth. [place] [address] Medical Branch atorvastati 2022-0 Yes 40mg Take 1 Univ ers n 40 mg 3-03 tablet by ity of tablet 11:24: mouth at [place] [address] bedtime. Medical Branch IRON-VITAMI 2022-0 Yes Take by Uni vers N B COMPLEX 3-03 mouth. ity of WITH C ORAL 11:24: [place] [address] Medical Branch MAGNESIUM 2022-0 Yes 400mg Take 400 Uni vers ORAL 3-03 mg by ity of 11:24: mouth. [place] [address] Medical Branch atorvastati 0 Yes 40mg Take 1 Univ ers n 40 mg 3-03 tablet by ity of tablet 11:24: mouth at [address] Medical Branch IRON-VITAMI 2022-0 Yes Take by Uni vers N B COMPLEX 3-03 mouth. ity of WITH C ORAL 11:24: [place] [address] Medical Branch MAGNESIUM 2022-0 Yes 400mg Take 400 Uni vers ORAL 3-03 mg by ity of 11:24: mouth. [place] [address] Medical Branch atorvastati 0 Yes 40mg Take 1 Univ ers n 40 mg 3-03 tablet by ity of tablet 11:24: mouth at [place] [address] [facility] Medical Branch lisinopriL 2023-0 3- No [id number] 10mg Take 1 Univers 10 mg 3-03 06-02 tablet by ity of tablet 00:00: 04:59 mouth [place] 00 :00 every Medical evening Branch for 90 days. lisinopriL 2023-0 3- No [id number] 10mg Take 1 Univers 10 mg 3-03 06-02 tablet by ity of tablet 00:00: 04:59 mouth [place] 00 :00 every Medical evening Branch for 90 days. lisinopriL 2023-0 3- No [id number] 10mg Take 1 Univers 10 mg 3-03 06-02 tablet by ity of tablet 00:00: 04:59 mouth [place] 00 :00 every Medical evening Branch for 90 days. lisinopriL 2022- No [id number] 10mg Take 1 Univers 10 mg 3-08 21-02 tablet by ity of tablet 00:00: 04:59 mouth [place] 00 :00 every Medical evening Branch for 90 days. lisinopriL 2022- No [id number] 10mg Take 1 Univers 10 mg 3-08 21-02 tablet by ity of tablet 00:00: 04:59 mouth [place] 00 :00 every Medical evening Branch for 90 days. lisinopriL 2022- No [id number] 10mg Take 1 Univers 10 mg 3-08 21- tablet by ity of tablet 00:00: 04:59 mouth [place] 00 :00 every Medical evening Branch for 90 days. peg-electro 2022- No 4000mL Take 4,000 Univers lyte soln 2-21 02-22 mL by ity of 236-22.74-6 00:00: 05:59 mouth once [place] .74 -5.86 00 :00 now for 1 Medic al gram dose. Branch solution contrast 2022- No [id number] Intravenou Univers previously 07-27 s, ONCE, 1 it y of administere 16:30: 16:43 dose, On [place] 0 mL 00 :00 [facility] 07/27/22 Medical at 1045, Branch Routine iopamidol 2022- No [id number] 99mL 99 mL, Univers (ISOVUE 07-27 Intravenou ity o f 370-500 mL) 16:15: 16:37 s, ONCE, 1 [place] injection 00 :00 dose, On Medica l 99 mL [place] 07/27/22 Branch at 1015, Routine atorvastati 2021-06 Yes 40mg Take 40 mg Univers n 40 mg 1-14 by mouth ity of tablet 09:57: at [place] 39 bedtime. Medical Branch atorvastati 2021-06 Yes 40mg Take 40 mg Univers n 40 mg 1-14 by mouth ity of tablet 09:57: at [place] 39 bedtime. Medical Branch atorvastati 2021-06 Yes 40mg Take 40 mg Univers n 40 mg 1-14 by mouth ity of tablet 09:57: at [place] [address] bedtime. Medical Branch atorvastati 2021-06 Yes 40mg Take 40 mg Univers n 40 mg 1-14 by mouth ity of tablet 09:57: at [place] [address] bedtime. Medical Branch atorvastati 2021-06 Yes 40mg Take 40 mg Univers n 40 mg 1-14 by mouth ity of tablet 09:57: at [place] [address] bedtime. Medical Branch atorvastati 2021-06 Yes 40mg Take 40 mg Univers n 40 mg 1-14 by mouth ity of tablet 09:57: at [place] [address] bedtime. Medical Branch atorvastati 2021-06 Yes 40mg Take 40 mg Univers n 40 mg 1-14 by mouth ity of tablet 09:57: at [place] [address] bedtime. [facility] atorvastati 2021-06 Yes 40mg Take 40 mg [facility] 40 mg 1-14 by mouth ity of tablet 09:57: at [place] [address] bedtime. [facility] atorvastati 2021-06 Yes 40mg Take 40 mg [facility] 40 mg 1-14 by mouth ity of tablet 09:57: at [place] [address] bedtime. [facility] atorvastati 2021-06 Yes 40mg Take 40 mg [facility] n 40 mg 1-14 by mouth ity of tablet 09:57: at [place] [address] bedtime. [facility] atorvastati 2021-06 Yes 40mg Take 40 mg [facility] n 40 mg 1-14 by mouth ity of tablet 09:57: at [place] [address] bedtime. [facility] atorvastati 2021-06 Yes 40mg Take 40 mg [facility] n 40 mg 1-14 by mouth ity of tablet 09:57: at [place] [address] bedtime. [facility] atorvastati 2021-06 Yes 40mg Take 40 mg [facility] n 40 mg 1-14 by mouth ity of tablet 09:57: at [place] [address] bedtime. [facility] atorvastati 2021-06 Yes 40mg Take 40 mg [facility] n 40 mg 1-14 by mouth ity of tablet 09:57: at [place] [address] bedtime. [facility] atorvastati 2021-06 Yes 40mg Take 40 mg [facility] n 40 mg 1-14 by mouth ity of tablet 09:57: at [place] [address] bedtime. [facility] apixaban 5 2021-06 Yes 1358 5mg Take 1 [facility] rs mg tablet 1-14 tablet by ity o f 00:00: mouth in [place] 00 the Medical morning Branch and 1 tablet in the evening. Indication s: atrial fibrillati on metoprolol 2021-06 Yes 50mg Take 1 [facility] rs succinate 1-14 tablet by ity o f XL 50 mg 24 00:00: mouth in [place] hr tablet 00 the Medical morning Branch and 1 tablet in the evening. lisinopriL 2021-06 Yes 10mg Take 1 [facility] rs 10 mg 1-14 tablet by ity of tablet 00:00: mouth at [place] 00 bedtime. [facility] Branch apixaban 5 2021-06 Yes 1358 5mg Take 1 [facility] rs mg tablet 1-14 tablet by ity o f 00:00: mouth in [place] 00 the Medical morning Branch and 1 tablet in the evening. Indication s: atrial fibrillati on metoprolol 2021-06 Yes 50mg Take 1 [facility] rs succinate 1-14 tablet by ity o f XL 50 mg 24 00:00: mouth in [place] hr tablet 00 the Medical morning Branch and 1 tablet in the evening. lisinopriL 2021-06 Yes 10mg Take 1 [facility] rs 10 mg 1-14 tablet by ity of tablet 00:00: mouth at [place] 00 bedtime. [facility] Branch apixaban 5 2021-06 Yes 1358 5mg Take 1 [facility] mg tablet 1-14 tablet by ity o f 00:00: mouth in [place] 00 the Medical morning Branch and 1 tablet in the evening. Indication s: atrial fibrillati on metoprolol 2021-06 Yes 50mg Take 1 [facility] rs succinate 1-14 tablet by ity o f XL 50 mg 24 00:00: mouth in [place] hr tablet 00 the Medical morning Branch and 1 tablet in the evening. lisinopriL 2021-06 Yes 10mg Take 1 [facility] rs 10 mg 1-14 tablet by it[facility] of tablet 00:00: mouth at [place] 00 bedtime. [facility] apixaban 5 2021-06 Yes 1358 5mg Take 1 [facility] rs mg tablet 1-14 tablet by ity o f 00:00: mouth in [place] 00 the Medical morning Branch and 1 tablet in the evening. Indication s: atrial fibrillati on metoprolol 2021-06 Yes 50mg Take 1 [facility] rs succinate 1-14 tablet by ity o f XL 50 mg 24 00:00: mouth in [place] hr tablet 00 the Medical morning Branch and 1 tablet in the evening. lisinopriL 2021-06 Yes 10mg Take 1 [facility] rs 10 mg 1-14 tablet by ity of tablet 00:00: mouth at [place] 00 bedtime. [facility] apixaban 5 2021-06 Yes 1358 5mg Take 1 [facility] rs mg tablet 1-14 tablet by ity o f 00:00: mouth in [place] 00 the Medical morning Branch and 1 tablet in the evening. Indication s: atrial fibrillati on metoprolol 2021-06 Yes 50mg Take 1 [facility] rs succinate 1-14 tablet by ity o f XL 50 mg 24 00:00: mouth in [place] hr tablet 00 the Medical morning Branch and 1 tablet in the evening. lisinopriL 2021-06 Yes 10mg Take 1 [facility] rs 10 mg 1-14 tablet by ity of tablet 00:00: mouth at [place] 00 bedtime. [facility] Branch apixaban 5 2021-06 Yes 1358 5mg Take 1 [facility] mg tablet 1-14 tablet by ity o f 00:00: mouth in [place] 00 the Medical morning Branch and 1 tablet in the evening. Indication s: atrial fibrillati on metoprolol 2021-06 Yes 50mg Take 1 [facility] rs succinate 1-14 tablet by ity o f XL 50 mg 24 00:00: mouth in [place] hr tablet 00 the Medical morning Branch and 1 tablet in the evening. lisinopriL 2021-06 Yes 10mg Take 1 [facility] rs 10 mg 1-14 tablet by ity of tablet 00:00: mouth at [place] 00 bedtime. [facility] Branch apixaban 5 2021-06 Yes 1358 5mg Take 1 [facility] mg tablet 1-14 tablet by ity o f 00:00: mouth in [place] 00 the Medical morning Branch and 1 tablet in the evening. Indication s: atrial fibrillati on metoprolol 2021-06 Yes 50mg Take 1 [facility] rs succinate 1-14 tablet by ity o f XL 50 mg 24 00:00: mouth in [place] hr tablet 00 the Medical morning Branch and 1 tablet in the evening. lisinopriL 2021-06 Yes 10mg Take 1 [facility] rs 10 mg 1-14 tablet by ity of tablet 00:00: mouth at [place] 00 bedtime. [facility] Branch apixaban 2021-06 Yes 1358 5mg Take 1 [facility] rs mg tablet 1-14 tablet by ity o f 00:00: mouth in [place] 00 the Medical morning Branch and 1 tablet in the evening. Indication s: atrial fibrillati on metoprolol 2021-06 Yes 50mg Take 1 [facility] rs succinate 1-14 tablet by ity o f XL 50 mg 24 00:00: mouth in [place] hr tablet 00 the Medical morning Branch and 1 tablet in the evening. lisinopriL 2021-06 Yes 10mg Take 1 [facility] rs 10 mg 1-14 tablet by ity of tablet 00:00: mouth at [place] 00 bedtime. [facility] Branch apixaban 2021-06 Yes 1358 5mg Take 1 [facility] mg tablet 1-14 tablet by ity o f 00:00: mouth in [place] 00 the Medical morning Branch and 1 tablet in the evening. Indication s: atrial fibrillati on metoprolol 2021-06 Yes 50mg Take 1 [facility] rs succinate 1-14 tablet by ity o f XL 50 mg 24 00:00: mouth in [place] hr tablet 00 the Medical morning Branch and 1 tablet in the evening. lisinopriL 2021-06 Yes 10mg Take 1 [facility] rs 10 mg 1-14 tablet by ity of tablet 00:00: mouth at [place] 00 bedtime. [facility] Branch apixaban 2021-06 Yes 1358 5mg Take 1 [facility] rs mg tablet 1-14 tablet by ity o f 00:00: mouth in [place] 00 the Medical morning Branch and 1 tablet in the evening. Indication s: atrial fibrillati on metoprolol 2021-06 Yes 50mg Take 1 [facility] rs succinate 1-14 tablet by ity o f XL 50 mg 24 00:00: mouth in [place] hr tablet 00 the Medical morning Branch and 1 tablet in the evening. lisinopriL 2021-06 Yes 10mg Take 1 [facility] 10 mg 1-14 tablet by ity of tablet 00:00: mouth at [place] 00 bedtime. [facility] Branch apixaban 2021-06 Yes 1358 5mg Take 1 [facility] mg tablet 1-14 tablet by ity o f 00:00: mouth in [place] 00 the Medical morning Branch and 1 tablet in the evening. Indication s: atrial fibrillati on metoprolol 2021-06 Yes 50mg Take 1 [facility] rs succinate 1-14 tablet by ity o f XL 50 mg 24 00:00: mouth in [place] hr tablet 00 the Medical morning Branch and 1 tablet in the evening. lisinopriL 2021-06 Yes 10mg Take 1 [facility] rs 10 mg 1-14 tablet by ity of tablet 00:00: mouth at [place] 00 bedtime. [facility] Branch apixaban 5 2021-06 Yes 1358 5mg Take 1 [facility] rs mg tablet 1-14 tablet by ity o f 00:00: mouth in [place] 00 the Medical morning Branch and 1 tablet in the evening. Indication s: atrial fibrillati on metoprolol 2021-06 Yes 50mg Take 1 [facility] rs succinate 1-14 tablet by ity o f XL 50 mg 24 00:00: mouth in [place] hr tablet 00 the Medical morning Branch and 1 tablet in the evening. lisinopriL 2021-06 Yes 10mg Take 1 [facility] rs 10 mg 1-14 tablet by ity of tablet 00:00: mouth at [place] 00 bedtime. [facility] apixaban 5 2021-06 Yes 1358 5mg Take 1 [facility] rs mg tablet 1-14 tablet by ity o f 00:00: mouth in [place] 00 the Medical morning Branch and 1 tablet in the evening. Indication s: atrial fibrillati on metoprolol 2021-06 Yes 50mg Take 1 [facility] rs succinate 1-14 tablet by ity o f XL 50 mg 24 00:00: mouth in [place] hr tablet 00 the Medical morning Branch and 1 tablet in the evening. lisinopriL 2021-06 Yes 10mg Take 1 [facility] rs 10 mg 1-14 tablet by ity of tablet 00:00: mouth at [place] 00 bedtime. [facility] Branch apixaban 5 2021-06 Yes 1358 5mg Take 1 [facility] rs mg tablet 1-14 tablet by ity o f 00:00: mouth in [place] 00 the Medical morning Branch and 1 tablet in the evening. Indication s: atrial fibrillati on metoprolol 2021-06 Yes 50mg Take 1 [facility] rs succinate 1-14 tablet by ity o f XL 50 mg 24 00:00: mouth in [place] hr tablet 00 the Medical morning Branch and 1 tablet in the evening. lisinopriL 2021-06 Yes 10mg Take 1 [facility] rs 10 mg 1-14 tablet by ity of tablet 00:00: mouth at [place] 00 bedtime. [facility] apixaban 5 2021-06 Yes 1358 5mg Take 1 [facility] mg tablet 1-14 tablet by ity o f 00:00: mouth in [place] 00 the Medical morning Branch and 1 tablet in the evening. Indication s: atrial fibrillati on metoprolol 2021-06 Yes 50mg Take 1 [facility] rs succinate 1-14 tablet by ity o f XL 50 mg 24 00:00: mouth in [place] hr tablet 00 the Medical morning Branch and 1 tablet in the evening. lisinopriL 2021-06 Yes 10mg Take 1 [facility] rs 10 mg 1-14 tablet by ity of tablet 00:00: mouth at [place] 00 bedtime. [facility] Branch apixaban 2021-06 Yes 1358 5mg Take 1 [facility] rs mg tablet 1-14 tablet by ity o f 00:00: mouth in [place] 00 the Medical morning Branch and 1 tablet in the evening. Indication s: atrial fibrillati on metoprolol 2021-06 Yes 50mg Take 1 [facility] rs succinate 1-14 tablet by ity o f XL 50 mg 24 00:00: mouth in [place] hr tablet 00 the Medical morning Branch and 1 tablet in the evening. lisinopriL 2021-06 No 10mg Take 1 [facility] rs 10 mg 1-14 tablet by ity of tablet 00:00: mouth at [place] 00 bedtime. [facility] Branch apixaban 5 2021-06 Yes 1358 5mg Take 1 [facility] rs mg tablet 1-14 tablet by ity o f 00:00: mouth in [place] 00 the Medical morning Branch and 1 tablet in the evening. Indication s: atrial fibrillati on metoprolol 2021-06 Yes 50mg Take 1 [facility] rs succinate 1-14 tablet by ity o f XL 50 mg 24 00:00: mouth in [place] hr tablet 00 the Medical morning Branch and 1 tablet in the evening. lisinopriL 2021-06 No 10mg Take 1 [facility] rs 10 mg 1-14 tablet by ity of tablet 00:00: mouth at [place] 00 bedtime. [facility] Branch apixaban 5 2021-06 Yes 1358 5mg Take 1 [facility] rs mg tablet 1-14 tablet by ity o f 00:00: mouth in [place] 00 the Medical morning Branch and 1 tablet in the evening. Indication s: atrial fibrillati on metoprolol 2021-06 Yes 50mg Take 1 [facility] rs succinate 1-14 tablet by ity o f XL 50 mg 24 00:00: mouth in [place] hr tablet 00 the Medical morning Branch and 1 tablet in the evening. apixaban 2021-06 Yes 1358 5mg Take 1 [facility] rs mg tablet 1-14 tablet by ity o f 00:00: mouth in [place] 00 the Medical morning Branch and 1 tablet in the evening. Indication s: atrial fibrillati on metoprolol 2021-06 Yes 50mg Take 1 [facility] rs succinate 1-14 tablet by ity o f XL 50 mg 24 00:00: mouth in [place] hr tablet 00 the Medical morning Branch and 1 tablet in the evening. apixaban 2021-06 Yes 1358 5mg Take 1 [facility] rs mg tablet 1-14 tablet by ity o f 00:00: mouth in [place] 00 the Medical morning Branch and 1 tablet in the evening. Indication s: atrial fibrillati on metoprolol 2021-06 Yes 50mg Take 1 [facility] rs succinate 1-14 tablet by ity o f XL 50 mg 24 00:00: mouth in [place] hr tablet 00 the Medical morning Branch and 1 tablet in the evening. apixaban 2021-06 Yes 1358 5mg Take 1 [facility] rs mg tablet 1-14 tablet by ity o f 00:00: mouth in [place] 00 the Medical morning Branch and 1 tablet in the evening. Indication s: atrial fibrillati on metoprolol 2021-06 Yes 50mg Take 1 [facility] rs succinate 1-14 tablet by ity o f XL 50 mg 24 00:00: mouth in [place] hr tablet 00 the Medical morning Branch and 1 tablet in the evening. apixaban 2021-06 Yes 1358 5mg Take 1 [facility] rs mg tablet 1-14 tablet by ity o f 00:00: mouth in [place] 00 the Medical morning Branch and 1 tablet in the evening. Indication s: atrial fibrillati on metoprolol 2021-06 Yes 50mg Take 1 [facility] rs succinate 1-14 tablet by ity o f XL 50 mg 24 00:00: mouth in [place] hr tablet 00 the Medical morning Branch and 1 tablet in the evening. apixaban 5 2021-06 Yes 1358 5mg Take 1 [facility] rs mg tablet 1-14 tablet by ity o f 00:00: mouth in [place] 00 the Medical morning Branch and 1 tablet in the evening. Indication s: atrial fibrillati on metoprolol 2021-06 Yes 50mg Take 1 [facility] rs succinate 1-14 tablet by ity o f XL 50 mg 24 00:00: mouth in [place] hr tablet 00 the Medical morning Branch and 1 tablet in the evening. apixaban 5 2021-06 Yes 1358 5mg Take 1 [facility] rs mg tablet 1-14 tablet by ity o f 00:00: mouth in [place] 00 the Medical morning Branch and 1 tablet in the evening. Indication s: atrial fibrillati on metoprolol 2021-06 Yes 50mg Take 1 [facility] rs succinate 1-14 tablet by ity o f XL 50 mg 24 00:00: mouth in [place] hr tablet 00 the Medical morning Branch and 1 tablet in the evening. metoprolol 2021-06 Yes 50mg Take 1 [facility] rs succinate 1-14 tablet by ity o f XL 50 mg 24 00:00: mouth in [place] hr tablet 00 the Medical morning Branch and 1 tablet in the evening. metoprolol 2021-06 Yes 50mg Take 1 [facility] rs succinate 1-14 tablet by ity o f XL 50 mg 24 00:00: mouth in [place] hr tablet 00 the Medical morning Branch and 1 tablet in the evening. metoprolol 2021-06 Yes 50mg Take 1 [facility] rs succinate 1-14 tablet by ity o f XL 50 mg 24 00:00: mouth in [place] hr tablet 00 the Medical morning Branch and 1 tablet in the evening. metoprolol 2021-06 Yes 50mg Take 1 [facility] rs succinate 1-14 tablet by ity o f XL 50 mg 24 00:00: mouth in [place] hr tablet 00 the Medical morning Branch and 1 tablet in the evening. metoprolol 2021-06 Yes 50mg Take 1 [facility] rs succinate 1-14 tablet by ity o f XL 50 mg 24 00:00: mouth in [place] hr tablet 00 the Medical morning Branch and 1 tablet in the evening. metoprolol 2021-06 Yes 50mg Take 1 [facility] rs succinate 1-14 tablet by ity o f XL 50 mg 24 00:00: mouth in [place] hr tablet 00 the Medical morning Branch and 1 tablet in the evening. metoprolol 2021-06 Yes 50mg Take 1 [facility] rs succinate 1-14 tablet by ity o f XL 50 mg 24 00:00: mouth in [place] hr tablet 00 the Medical morning Branch and 1 tablet in the evening. metoprolol 2021-06 Yes 50mg Take 1 [facility] rs succinate 1-14 tablet by ity o f XL 50 mg 24 00:00: mouth in [place] hr tablet 00 the Medical morning Branch and 1 tablet in the evening. metoprolol 2021-06 Yes 50mg Take 1 [facility] rs succinate 1-14 tablet by ity o f XL 50 mg 24 00:00: mouth in [place] hr tablet 00 the Medical morning Branch and 1 tablet in the evening. metoprolol 2021-06 Yes 50mg Take 1 [facility] rs succinate 1-14 tablet by ity o f XL 50 mg 24 00:00: mouth in [place] hr tablet 00 the Medical morning Branch and 1 tablet in the evening. metoprolol 2021-06 No 50mg Take 1 [facility] ers succinate 1-14 09-15 tablet by ity of XL 50 mg 24 00:00: 00:00 mouth in [place] hr tablet 00 :00 the Medical morning Branch and 1 tablet in the evening. apixaban 5 2021-06- No 1358 5mg Take 1 [facility] ers mg tablet -14 06-30 tablet by ity of 00:00: 00:00 mouth in [place] 00 :00 the Medical morning Branch and 1 tablet in the evening. Indication s: atrial fibrillati on apixaban 5 2021-06- No 1358 5mg Take 1 [facility] ers mg tablet 1-14 06-30 tablet by ity of 00:00: 00:00 mouth in [place] 00 :00 the Medical morning Branch and 1 tablet in the evening. Indication s: atrial fibrillati on IRON-VITAMI 2021-06 Yes Take by [facility] vers N B COMPLEX 1-06 mouth. ity of WITH C ORAL 06:28: [address] MAGNESIUM 2021-06 Yes 400mg Take 400 [facility] vers ORAL 1-06 mg by ity of 06:28: mouth. [address] atorvastati 2021-06 Yes 40mg Take 40 mg [facility] n 40 mg 1-06 by mouth ity of tablet 06:28: at [place] [address] bedtime. Medical Branch IRON-VITAMI 2021-06 Yes Take by [facility] vers N B COMPLEX 1-06 mouth. ity of WITH C ORAL 06:28: [address] Branch MAGNESIUM 2021-06 Yes 400mg Take 400 [facility] vers ORAL 1-06 mg by ity of 06:28: mouth. [place] [address] Medical Branch atorvastati 2021-06 Yes 40mg Take 40 mg [facility] n 40 mg 1-06 by mouth ity of tablet 06:28: at [place] [address] bedtime. [facility] Branch IRON-VITAMI 2021-06 Yes Take by [facility] vers N B COMPLEX 1-06 mouth. ity of WITH C ORAL 06:28: [address] MAGNESIUM 2021-06 Yes 400mg Take 400 [facility] vers ORAL 1-06 mg by ity of 06:28: mouth. [address] Branch atorvastati 2021-06 Yes 40mg Take 40 mg [facility] n 40 mg 1-06 by mouth ity of tablet 06:28: at [place] [address] bedtime. Medical Branch IRON-VITAMI 2021-06 Yes Take by [facility] vers N B COMPLEX 1-06 mouth. ity of WITH C ORAL 06:28: [address] MAGNESIUM 2021-06 Yes 400mg Take 400 [facility] vers ORAL 1-06 mg by ity of 06:28: mouth. [address] Branch atorvastati 2021-06 Yes 40mg Take 40 mg [facility] n 40 mg 1-06 by mouth ity of tablet 06:28: at [place] [address] bedtime. Medical Branch IRON-VITAMI 2021-06 Yes Take by [facility] vers N B COMPLEX 1-06 mouth. ity of WITH C ORAL 06:28: [address] MAGNESIUM 2021-06 Yes 400mg Take 400 [facility] vers ORAL 1-06 mg by ity of 06:28: mouth. [address] Branch atorvastati 2021-06 Yes 40mg Take 40 mg [facility] n 40 mg 1-06 by mouth ity of tablet 06:28: at [place] [address] bedtime. Medical Branch IRON-VITAMI 2021-06 Yes Take by [facility] vers N B COMPLEX 1-06 mouth. ity of WITH C ORAL 06:28: [address] MAGNESIUM 2021-06 Yes 400mg Take 400 [facility] vers ORAL 1-06 mg by ity of 06:28: mouth. [address] atorvastati 2021-06 Yes 40mg Take 40 mg [facility] n 40 mg 1-06 by mouth ity of tablet 06:28: at [place] [address] bedtime. [facility] IRON-VITAMI 2021-06 Yes Take by [facility] vers N B COMPLEX 1-06 mouth. ity of WITH C ORAL 06:28: [address] MAGNESIUM 2021-06 Yes 400mg Take 400 [facility] vers ORAL 1-06 mg by ity of 06:28: mouth. [address] IRON-VITAMI 2021-06 Yes Take by [facility] vers N B COMPLEX 1-06 mouth. ity of WITH C ORAL 06:28: [address] MAGNESIUM 2021-06 Yes 400mg Take 400 [facility] vers ORAL 1-06 mg by ity of 06:28: mouth. [address] IRON-VITAMI 2021-06 Yes Take by [facility] vers N B COMPLEX 1-06 mouth. ity of WITH C ORAL 06:28: [address] MAGNESIUM 2021-06 Yes 400mg Take 400 [facility] vers ORAL 1-06 mg by ity of 06:28: mouth. [address] IRON-VITAMI 2021-06 Yes Take by [facility] vers N B COMPLEX 1-06 mouth. ity of WITH C ORAL 06:28: [address] MAGNESIUM 2021-06 Yes 400mg Take 400 [facility] vers ORAL 1-06 mg by ity of 06:28: mouth. [address] IRON-VITAMI 2021-06 Yes Take by [facility] vers N B COMPLEX 1-06 mouth. ity of WITH C ORAL 06:28: [address] MAGNESIUM 2021-06 Yes 400mg Take 400 [facility] vers ORAL 1-06 mg by ity of 06:28: mouth. [address] IRON-VITAMI 2021-06 Yes Take by [facility] vers N B COMPLEX 1-06 mouth. ity of WITH C ORAL 06:28: [address] MAGNESIUM 2021-06 Yes 400mg Take 400 [facility] vers ORAL 1-06 mg by ity of 06:28: mouth. [address] IRON-VITAMI 2021-06 Yes Take by [facility] vers N B COMPLEX 1-06 mouth. ity of WITH C ORAL 06:28: [address] MAGNESIUM 2021-06 Yes 400mg Take 400 [facility] vers ORAL 1-06 mg by ity of 06:28: mouth. [address] IRON-VITAMI 2021-06 Yes Take by [facility] vers N B COMPLEX 1-06 mouth. ity of WITH C ORAL 06:28: [address] MAGNESIUM 2021-06 Yes 400mg Take 400 [facility] vers ORAL 1-06 mg by ity of 06:28: mouth. [address] IRON-VITAMI 2021-06 Yes Take by [facility] vers N B COMPLEX 1-06 mouth. ity of WITH C ORAL 06:28: [address] MAGNESIUM 2021-06 Yes 400mg Take 400 [facility] vers ORAL 1-06 mg by ity of 06:28: mouth. [address] IRON-VITAMI 2021-06 Yes Take by [facility] vers N B COMPLEX 1-06 mouth. ity of WITH C ORAL 06:28: [address] MAGNESIUM 2021-06 Yes 400mg Take 400 [facility] vers ORAL 1-06 mg by ity of 06:28: mouth. [address] IRON-VITAMI 2021-06 Yes Take by [facility] vers N B COMPLEX 1-06 mouth. ity of WITH C ORAL 06:28: [address] MAGNESIUM 2021-06 Yes 400mg Take 400 [facility] vers ORAL 1-06 mg by ity of 06:28: mouth. [address] IRON-VITAMI 2021-06 Yes Take by [facility] vers N B COMPLEX 1-06 mouth. ity of WITH C ORAL 06:28: [address] MAGNESIUM 2021-06 Yes 400mg Take 400 [facility] vers ORAL 1-06 mg by ity of 06:28: mouth. [address] IRON-VITAMI 2021-06 Yes Take by [facility] vers N B COMPLEX 1-06 mouth. ity of WITH C ORAL 06:28: [address] MAGNESIUM 2021-06 Yes 400mg Take 400 Uni vers ORAL 1-06 mg by ity of 06:28: mouth. [address] IRON-VITAMI 2021-06 Yes Take by [facility] vers N B COMPLEX 1-06 mouth. ity of WITH C ORAL 06:28: [address] MAGNESIUM 2021-06 Yes 400mg Take 400 Uni vers ORAL 1-06 mg by ity of 06:28: mouth. [address] IRON-VITAMI 2021-06 Yes Take by [facility] vers N B COMPLEX 1-06 mouth. ity of WITH C ORAL 06:28: [address] MAGNESIUM 2021-06 Yes 400mg Take 400 Uni vers ORAL 1-06 mg by ity of 06:28: mouth. [address] ondansetron 2021-06 Yes [id number] 4mg Take 1 [facility] 4 mg 1-06 tablet by ity of disintegrat 00:00: mouth [place] ing tablet 00 every 8 Medica l (eight) Branch hours as needed for Nausea and Vomiting (N/V) for up to 10 doses. ondansetron 2021-06 Yes [id number] 4mg Take 1 [facility] 4 mg 1-06 tablet by ity of disintegrat 00:00: mouth [place] ing tablet 00 every 8 Medica l (eight) Branch hours as needed for Nausea and Vomiting (N/V) for up to 10 doses. ondansetron 2021-06 Yes [id number] 4mg Take 1 [facility] 4 mg 1-06 tablet by ity of disintegrat 00:00: mouth [place] ing tablet 00 every 8 Medica l (eight) Branch hours as needed for Nausea and Vomiting (N/V) for up to 10 doses. ondansetron 2021-06 Yes [id number] 4mg Take 1 [facility] 4 mg 1-06 tablet by ity of disintegrat 00:00: mouth [place] ing tablet 00 every 8 Medica l (eight) Branch hours as needed for Nausea and Vomiting (N/V) for up to 10 doses. ondansetron 2021-06 Yes [id number] 4mg Take 1 [facility] 4 mg 1-06 tablet by ity of disintegrat 00:00: mouth [place] ing tablet 00 every 8 Medica l (eight) Branch hours as needed for Nausea and Vomiting (N/V) for up to 10 doses. ondansetron 2021-06 Yes [id number] 4mg Take 1 [facility] 4 mg 1-06 tablet by ity of disintegrat 00:00: mouth [place] ing tablet 00 every 8 Medica l (eight) Branch hours as needed for Nausea and Vomiting (N/V) for up to 10 doses. ondansetron 2021-06 Yes [id number] 4mg Take 1 [facility] 4 mg 1-06 tablet by ity of disintegrat 00:00: mouth [place] ing tablet 00 every 8 Medica l (eight) Branch hours as needed for Nausea and Vomiting (N/V) for up to 10 doses. ondansetron 2021-06 Yes [id number] 4mg Take 1 [facility] 4 mg 1-06 tablet by ity of disintegrat 00:00: mouth [place] ing tablet 00 every 8 Medica l (eight) Branch hours as needed for Nausea and Vomiting (N/V) for up to 10 doses. ondansetron 2021-06 Yes [id number] 4mg Take 1 [facility] 4 mg 1-06 tablet by ity of disintegrat 00:00: mouth [place] ing tablet 00 every 8 Medica l (eight) Branch hours as needed for Nausea and Vomiting (N/V) for up to 10 doses. ondansetron 2021-06 Yes [id number] 4mg Take 1 [facility] 4 mg 1-06 tablet by ity of disintegrat 00:00: mouth [place] ing tablet 00 every 8 Medica l (eight) Branch hours as needed for Nausea and Vomiting (N/V) for up to 10 doses. ondansetron 2021-06 Yes [id number] 4mg Take 1 [facility] 4 mg 1-06 tablet by ity of disintegrat 00:00: mouth [place] ing tablet 00 every 8 Medica l (eight) Branch hours as needed for Nausea and Vomiting (N/V) for up to 10 doses. ondansetron 2021-06 Yes [id number] 4mg Take 1 [facility] 4 mg 1-06 tablet by ity of disintegrat 00:00: mouth [place] ing tablet 00 every 8 Medica l (eight) Branch hours as needed for Nausea and Vomiting (N/V) for up to 10 doses. ondansetron 2021-06 Yes [id number] 4mg Take 1 [facility] 4 mg 1-06 tablet by ity of disintegrat 00:00: mouth [place] ing tablet 00 every 8 Medica l (eight) Branch hours as needed for Nausea and Vomiting (N/V) for up to 10 doses. ondansetron 2021-06 Yes [id number] 4mg Take 1 [facility] 4 mg 1-06 tablet by ity of disintegrat 00:00: mouth [place] ing tablet 00 every 8 Med[facility] l (eight) Branch hours as needed for Nausea and Vomiting (N/V) for up to 10 doses. ondansetron 2021-06 Yes [id number] 4mg Take 1 [facility] 4 mg 1-06 tablet by ity of disintegrat 00:00: mouth [place] ing tablet 00 every 8 Medica l (eight) Branch hours as needed for Nausea and Vomiting (N/V) for up to 10 doses. ondansetron 2021-06 Yes [id number] 4mg Take 1 [facility] 4 mg 1-06 tablet by ity of disintegrat 00:00: mouth [place] ing tablet 00 every 8 Medica l (eight) Branch hours as needed for Nausea and Vomiting (N/V) for up to 10 doses. ondansetron 2021-06 Yes [id number] 4mg Take 1 [facility] 4 mg 1-06 tablet by ity of disintegrat 00:00: mouth [place] ing tablet 00 every 8 Medica l (eight) Branch hours as needed for Nausea and Vomiting (N/V) for up to 10 doses. ondansetron 2021-06 Yes [id number] 4mg Take 1 [facility] 4 mg 1-06 tablet by ity of disintegrat 00:00: mouth [place] ing tablet 00 every 8 Medica l (eight) Branch hours as needed for Nausea and Vomiting (N/V) for up to 10 doses. ondansetron 2021-06 Yes [id number] 4mg Take 1 [facility] 4 mg 1-06 tablet by ity of disintegrat 00:00: mouth [place] ing tablet 00 every 8 Medica l (eight) Branch hours as needed for Nausea and Vomiting (N/V) for up to 10 doses. ondansetron 2021-06 Yes [id number] 4mg Take 1 [facility] 4 mg 1-06 tablet by ity of disintegrat 00:00: mouth [place] ing tablet 00 every 8 Medica l (eight) Branch hours as needed for Nausea and Vomiting (N/V) for up to 10 doses. ondansetron 2021-06 Yes [id number] 4mg Take 1 [facility] 4 mg 1-06 tablet by ity of disintegrat 00:00: mouth [place] ing tablet 00 every 8 Medica l (eight) Branch hours as needed for Nausea and Vomiting (N/V) for up to 10 doses. ondansetron 2021-06 Yes [id number] 4mg Take 1 [facility] 4 mg 1-06 tablet by ity of disintegrat 00:00: mouth [place] ing tablet 00 every 8 Medica l (eight) Branch hours as needed for Nausea and Vomiting (N/V) for up to 10 doses. ondansetron 2021-06 Yes [id number] 4mg Take 1 [facility] 4 mg 1-06 tablet by ity of disintegrat 00:00: mouth [place] ing tablet 00 every 8 Medica l (eight) Branch hours as needed for Nausea and Vomiting (N/V) for up to 10 doses. ondansetron 2021-06 Yes [id number] 4mg Take 1 [facility] 4 mg 1-06 tablet by ity of disintegrat 00:00: mouth [place] ing tablet 00 every 8 Medica l (eight) Branch hours as needed for Nausea and Vomiting (N/V) for up to 10 doses. ondansetron 2021-06 Yes [id number] 4mg Take 1 [facility] 4 mg 1-06 tablet by ity of disintegrat 00:00: mouth [place] ing tablet 00 every 8 Medica l (eight) Branch hours as needed for Nausea and Vomiting (N/V) for up to 10 doses. ondansetron 2021-06 Yes [id number] 4mg Take 1 [facility] 4 mg 1-06 tablet by ity of disintegrat 00:00: mouth [place] ing tablet 00 every 8 Medica l (eight) Branch hours as needed for Nausea and Vomiting (N/V) for up to 10 doses. ondansetron 2021-06 Yes [id number] 4mg Take 1 [facility] 4 mg 1-06 tablet by ity of disintegrat 00:00: mouth [place] ing tablet 00 every 8 Medica l (eight) Branch hours as needed for Nausea and Vomiting (N/V) for up to 10 doses. ondansetron 2021-06 Yes [id number] 4mg Take 1 [facility] 4 mg 1-06 tablet by ity of disintegrat 00:00: mouth [place] ing tablet 00 every 8 Medica l (eight) Branch hours as needed for Nausea and Vomiting (N/V) for up to 10 doses. ondansetron 2021-06 Yes [id number] 4mg Take 1 [facility] 4 mg 1-06 tablet by ity of disintegrat 00:00: mouth [place] ing tablet 00 every 8 Medica l (eight) Branch hours as needed for Nausea and Vomiting (N/V) for up to 10 doses. ondansetron 2021-06 Yes [id number] 4mg Take 1 [facility] 4 mg 1-06 tablet by ity of disintegrat 00:00: mouth [place] ing tablet 00 every 8 Medica l (eight) Branch hours as needed for Nausea and Vomiting (N/V) for up to 10 doses. ondansetron 2021-06 Yes [id number] 4mg Take 1 [facility] 4 mg 1-06 tablet by ity of disintegrat 00:00: mouth [place] ing tablet 00 every 8 Medica l (eight) Branch hours as needed for Nausea and Vomiting (N/V) for up to 10 doses. ondansetron 2021-06 Yes [id number] 4mg Take 1 [facility] 4 mg 1-06 tablet by ity of disintegrat 00:00: mouth [place] ing tablet 00 every 8 Medica l (eight) Branch hours as needed for Nausea and Vomiting (N/V) for up to 10 doses. ondansetron 2021-06 Yes [id number] 4mg Take 1 [facility] 4 mg 1-06 tablet by ity of disintegrat 00:00: mouth [place] ing tablet 00 every 8 Medica l (eight) Branch hours as needed for Nausea and Vomiting (N/V) for up to 10 doses. ondansetron 2021-06- No [id number] 4mg Take 1 [facility] 4 mg 1-06 07-12 tablet by ity of disintegrat 00:00: 00:00 [place] 00 :00 every 8 Medica l (eight) Branch hours as needed for Nausea and Vomiting (N/V) for up to 10 doses. ondansetron 2021-06- No [id number] 4mg Take 1 [facility] 4 mg 1-06 07-12 tablet by ity of disintegrat 00:00: 00:00 [place] 00 :00 every 8 Medica l (eight) Branch hours as needed for Nausea and Vomiting (N/V) for up to 10 doses. L.acidop-L. 2021-06- No [id number] 1{tbl} Take 1 [facility] deborah-B.bifi 06-23 tablet by it y of d-B.long 00:00: 05:59 mouth [place] (PROBIOTIC 00 :00 daily for Medi aurelio COLON 28 days. Branch SUPPORT) 70 mg (5 billion cell) TbEC L.acidop-L. 2021-06- No [id number] 1{tbl} Take 1 [facility] deborah-B.bifi 06-23 tablet by it y of d-B.long 00:00: 05:59 mouth [place] (PROBIOTIC 00 :00 daily for Medi aurelio COLON 28 days. Branch SUPPORT) 70 mg (5 billion cell) TbEC L.acidop-L. 2021-06- No [id number] 1{tbl} Take 1 [facility] deborah-B.bifi 06-23 tablet by it y of d-B.long 00:00: 05:59 mouth [place] (PROBIOTIC 00 :00 daily for Medi aurelio COLON 28 days. Branch SUPPORT) 70 mg (5 billion cell) TbEC L.acidop-L. 2021-06- No [id number] 1{tbl} Take 1 [facility] deborah-B.bifi 06-23 tablet by it y of d-B.long 00:00: 05:59 mouth [place] (PROBIOTIC 00 :00 daily for Medi aurelio COLON 28 days. Branch SUPPORT) 70 mg (5 billion cell) TbEC L.acidop-L. 2021-06- No [id number] 1{tbl} Take 1 [facility] deborah-B.bifi 06-23 tablet by it y of d-B.long 00:00: 05:59 mouth [place] (PROBIOTIC 00 :00 daily for Medi aurelio COLON 28 days. Branch SUPPORT) 70 mg (5 billion cell) TbEC L.acidop-L. 2021-06- No [id number] 1{tbl} Take 1 [facility] deborah-B.bifi 06-23 tablet by it y of d-B.long 00:00: 05:59 mouth [place] (PROBIOTIC 00 :00 daily for Medi aurelio COLON 28 days. Branch SUPPORT) 70 mg (5 billion cell) TbEC L.acidop-L. 2021-06- No [id number] 1{tbl} Take 1 [facility] deborah-B.bifi 06-23 tablet by it y of d-B.long 00:00: 05:59 mouth [place] (PROBIOTIC 00 :00 daily for Medi aurelio COLON 28 days. Branch SUPPORT) 70 mg (5 billion cell) TbEC L.acidop-L. 2021-06- No [id number] 1{tbl} Take 1 [facility] deborah-B.bifi 06-23 tablet by it y of d-B.long 00:00: 05:59 mouth [place] (PROBIOTIC 00 :00 daily for [facility] COLON 28 days. Branch SUPPORT) 70 mg (5 billion cell) [facility] amoxicillin 2021-06- No [id number] 500mg Take 1 Univers -pot 06-23 tablet by ity of clavulanate 00:00: 05:59 [place] 500 mg 00 :00 every 8 Medical 500-125 mg (eight) Branch tablet hours for 10 days. amoxicillin 2021-06- No [id number] 500mg Take 1 [facility] -pot 06-23 tablet by ity of clavulanate 00:00: 05:59 mouth [place] 500 mg 00 :00 every 8 Medical 500-125 mg (eight) Branch tablet hours for 10 days. amoxicillin 2021-06- No [id number] 500mg Take 1 [facility] -pot 06-23 tablet by ity of clavulanate 00:00: 05:59 mouth [place] 500 mg 00 :00 every 8 Medical 500-125 mg (eight) Branch tablet hours for 10 days. amoxicillin 2021-06- No [id number] 500mg Take 1 [facility] -pot 06-23 tablet by ity of clavulanate 00:00: 05:59 mouth [place] 500 mg 00 :00 every 8 Medical 500-125 mg (eight) Branch tablet hours for 10 days. amoxicillin 2021-06- No [id number] 500mg Take 1 [facility] -pot 06-23 tablet by ity of clavulanate 00:00: 05:59 mouth [place] 500 mg 00 :00 every 8 Medical 500-125 mg (eight) Branch tablet hours for 10 days. amoxicillin 2021-06- No [id number] 500mg Take 1 [facility] -pot 06-23 tablet by ity of clavulanate 00:00: 05:59 mouth [place] 500 mg 00 :00 every 8 Medical 500-125 mg (eight) Branch tablet hours for 10 days. amoxicillin 2021-06- No [id number] 500mg Take 1 [facility] -pot 06-23 tablet by ity of clavulanate 00:00: 05:59 mouth [place] 500 mg 00 :00 every 8 Medical 500-125 mg (eight) Branch tablet hours for 10 days. amoxicillin 2021-06- No [id number] 500mg Take 1 [facility] -pot 06-23 11-17 tablet by ity of clavulanate 00:00: 05:59 mouth [place] 500 mg 00 :00 every 8 Medical 500-125 mg (eight) Branch tablet hours for 10 days. IRON-VITAMI 0 Yes Take by Uni vers N B COMPLEX 9-29 mouth. ity of WITH C ORAL 13:14: [place] [address] Medical Branch MAGNESIUM 0 Yes 400mg Take 400 Uni vers ORAL 9-29 mg by ity of 13:14: mouth. [place] [address] Medical Branch atorvastati 0 Yes 40mg Take 40 mg Univers n 40 mg 9-29 by mouth ity of tablet 13:14: at [place] [address] bedtime. Medical Branch IRON-VITAMI 0 Yes Take by Uni vers N B COMPLEX 9-29 mouth. ity of WITH C ORAL 13:14: [place] [address] Medical Branch MAGNESIUM 0 Yes 400mg Take 400 Uni vers ORAL 9-29 mg by ity of 13:14: mouth. [address] Branch atorvastati 0 Yes 40mg Take 40 mg Univers n 40 mg 9-29 by mouth ity of tablet 13:14: at [place] [address] bedtime. Medical Branch IRON-VITAMI 0 Yes Take by Uni vers N B COMPLEX 9-29 mouth. ity of WITH C ORAL 13:14: [address] Branch MAGNESIUM 0 Yes 400mg Take 400 Uni vers ORAL 9-29 mg by ity of 13:14: mouth. [address] Branch atorvastati 0 Yes 40mg Take 40 mg Univers n 40 mg 9-29 by mouth ity of tablet 13:14: at [place] [address] bedtime. Medical Branch IRON-VITAMI 0 Yes Take by Uni vers N B COMPLEX 9-29 mouth. ity of WITH C ORAL 13:14: [address] Branch MAGNESIUM 2021-0 Yes 400mg Take 400 Uni vers ORAL 9-29 mg by ity of 13:14: mouth. [address] Branch atorvastati 0 Yes 40mg Take 40 mg Univers n 40 mg 9-29 by mouth ity of tablet 13:14: at [place] [address] bedtime. Medical Branch IRON-VITAMI 0 Yes Take by Uni vers N B COMPLEX 9-29 mouth. ity of WITH C ORAL 13:14: [address] MAGNESIUM 0 Yes 400mg Take 400 Uni vers ORAL 9-29 mg by ity of 13:14: mouth. [address] atorvastati 0 Yes 40mg Take 40 mg Univers n 40 mg 9-29 by mouth ity of tablet 13:14: at [place] [address] bedtime. [facility] IRON-VITAMI Yes Take by Uni vers N B COMPLEX 9-29 mouth. ity of WITH C ORAL 13:14: [address] MAGNESIUM 0 Yes 400mg Take 400 Uni vers ORAL 9-29 mg by ity of 13:14: mouth. [address] atorvastati 0 Yes 40mg Take 40 mg Univers n 40 mg 9-29 by mouth ity of tablet 13:14: at [place] [address] bedtime. [facility] IRON-VITAMI 0 Yes Take by Uni vers N B COMPLEX 9-29 mouth. ity of WITH C ORAL 13:14: [address] MAGNESIUM 0 Yes 400mg Take 400 Uni vers ORAL 9-29 mg by ity of 13:14: mouth. [address] atorvastati 0 Yes 40mg Take 40 mg Univers n 40 mg 9-29 by mouth ity of tablet 13:14: at [place] [address] bedtime. [facility] IRON-VITAMI 0 Yes Take by Uni vers N B COMPLEX 9-29 mouth. ity of WITH C ORAL 13:14: [address] MAGNESIUM 0 Yes 400mg Take 400 Uni vers ORAL 9-29 mg by ity of 13:14: mouth. [address] atorvastati 0 Yes 40mg Take 40 mg Univers n 40 mg 9-29 by mouth ity of tablet 13:14: at [place] [address] bedtime. [facility] amLODIPine 2021-0 2021- No 10mg Take 10 mg Univers 10 mg 03-16 by mouth ity of tablet 11:49: 00:00 daily. [place] 35 :00 [facility] atorvastati 0 Yes 40mg 40 mg, Univ ers n (LIPITOR) - Oral, QHS, it y of tablet 40 04:15: First dose [place] mg 00 on Sun03/15/22 at Branch 2315, Until Discontinu ed, Routine apixaban 0 Yes 5mg 5 mg, Univers (ELIQUIS) 9- Oral, BID, ity of tablet 5 mg 01:00: First dose [place] 00 on Sun03/15/22 at Branch 1999, Until Discontinu ed, Routine
Indicatio ns: Non-Valvul ar Atrial Fibrillati on metoprolol 0 Yes 50mg 50 mg, Unive rs succinate 9-29 Oral, BID, ity of XL (TOPROL 01:00: First dose [place] XL) tablet 00 (after Medical 50 mg last Branch modificati on) on Sun03/15/22 at 1999, Until Discontinu ed, Routine metoprolol 2021-0 Yes [id number] 50mg Take 1 U nivers succinate 9-29 tablet by ity o f XL 50 mg 24 00:00: mouth in [place] hr tablet the morning Branch and 1 tablet in the evening. apixaban 0 Yes 1339 5mg Take 1 Unive rs mg tablet 9-29 tablet by ity o f 00:00: mouth in [place] 00 the Medical morning Branch and 1 tablet in the evening. 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 apixaban 0 Yes 1339 5mg Take 1 Unive rs mg tablet 9-29 tablet by ity o f 00:00: mouth in [place] 00 the Medical morning Branch and 1 tablet in the evening. 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 apixaban 0 Yes 1339 5mg Take 1 Unive rs mg tablet 9-29 tablet by ity o f 00:00: mouth in [place] [address] the Medical morning Branch and 1 tablet in the evening. 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 apixaban Yes 1339 5mg Take 1 Unive rs mg tablet 9-29 tablet by ity o f 00:00: mouth in [place] 00 the Medical morning Branch and 1 tablet in the evening. 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 apixaban Yes 1339 5mg Take 1 Unive rs mg tablet 9-29 tablet by ity o f 00:00: mouth in [place] 00 the Medical morning Branch and 1 tablet in the evening. 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 apixaban Yes 1339 5mg Take 1 Unive rs mg tablet 9-29 tablet by ity o f 00:00: mouth in [place] 00 the Medical morning Branch and 1 tablet in the evening. 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 apixaban 5 0 Yes 1339 5mg Take 1 Unive rs mg tablet 9-29 tablet by ity o f 00:00: mouth in [place] 00 the Medical morning Branch and 1 tablet in the evening. 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 apixaban 5 0 Yes 1339 5mg Take 1 Unive rs mg tablet 9-29 tablet by ity o f 00:00: mouth in [place] 00 the Medical morning Branch and 1 tablet in the evening. 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 apixaban 5 Yes 1339 5mg Take 1 Unive rs mg tablet 9-29 tablet by ity o f 00:00: mouth in [place] 00 the Medical morning Branch and 1 tablet in the evening. 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 apixaban 5 Yes 1339 5mg Take 1 Unive rs mg tablet 9-29 tablet by ity o f 00:00: mouth in [place] 00 the Medical morning Branch and 1 tablet in the evening. 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 apixaban 5 0 Yes 1339 5mg Take 1 Unive rs mg tablet 9-29 tablet by ity o f 00:00: mouth in [place] 00 the Medical morning Branch and 1 tablet in the evening. 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 apixaban 5 Yes 1339 5mg Take 1 Unive rs mg tablet 9-29 tablet by ity o f 00:00: mouth in [place] 00 the Medical morning Branch and 1 tablet in the evening. 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 apixaban 5 Yes 1339 5mg Take 1 Unive rs mg tablet -29 tablet by ity o f 00:00: mouth in [place] 00 the Medical morning Branch and 1 tablet in the evening. 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 apixaban 5 Yes 1339 5mg Take 1 Unive rs mg tablet -29 tablet by ity o f 00:00: mouth in [place] 00 the Medical morning Branch and 1 tablet in the evening. 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 apixaban 5 0 2021- No 1339 5mg Take 1 Univ ers mg tablet - 11-14 tablet by ity of 00:00: 00:00 mouth in [place] 00 :00 the Medical morning Branch and 1 tablet in the evening. 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 apixaban 5 0 2021- No 1339 5mg Take 1 Univ ers mg tablet 03-16 tablet by ity of 00:00: 00:00 mouth in [place] 00 :00 the [facility] morning Branch and 1 tablet in the evening. 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 apixaban 5 2021- No 1339 5mg Take 1 Univ ers mg tablet 03-16 tablet by ity of 00:00: 00:00 mouth in [place] 00 :00 the [facility] morning [place] and 1 tablet in the evening. 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 aspirin Yes 81mg 81 mg, Univers chewable 03-15 Oral, QAM ity of tablet 81 13:00: WITH [place] mg 00 BREAKFAST, Medical First dose Branch on Sun03/15/22 at 0800, Until Discontinu ed, Routine docusate Yes 100mg 100 mg, Unive rs (COLACE) 03-15 Oral, BID, ity o f capsule 100 13:00: First dose [place] mg 00 on Sun [facility] 03/15/22 at Branch 0800, Until Discontinu ed, Routine metoprolol 2021- No 50mg 50 mg, Univ ers succinate 03-15 Oral, ity of XL (TOPROL 13:00: 17:52 DAILY, [place] XL) tablet 00 :55 First dose Med ical 50 mg on Sun [place] 03/15/22 at 0800, Until Discontinu ed, Routine ondansetron Yes 4mg 4 mg, Slow Univers (ZOFRAN 03-15 IV Push, ity of (PF)) 12:39: Q6HPRN, [place] injection 4 58 Starting Medi aurelio mg on [facility] Branch 03/15/22 at 0739, Until Discontinu ed, Routine, Nausea and Vomiting (N/V) metoprolol 2021- No 5mg 5 mg, Slow Univers (LOPRESSOR) 03-15 IV Push, ity of injection 5 10:45: 10:48 ONCE, 1 [place] mg 00 :00 dose, On [facility] 03/15/22 at 0545, JENIFFER tc 2021- No [id number] 42.5mCi 42.5 Unive rs 99m-tetrofo 03-09 millicurie i ty of smin 17:15: 17:10 , [place] ([facility]) 00 :00 Intravenou Medi aurelio injection s, ONCE, 1 Bran ch 42.5 dose, On [facility] 03/09/22 at 1215, Routine regadenoson 2021- No [id number] .4mg 0.4 mg, IV Univers (LEXISCAN) 03-09 Push, ity of injection 16:45: 17:11 ONCE, 1 [place] 0.4 mg 00 :00 dose, On [facility] 03/09/22 at 1145, Routine
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 [address] amLODIPine 2021-0 Yes 10mg Take 10 mg U nivers 10 mg 02-17 by mouth ity of tablet 11:07: daily. [address] amLODIPine 2021-0 Yes 10mg Take 10 mg U nivers 10 mg 9-02 by mouth ity of tablet 11:07: daily. [place] [address] Medical Branch amLODIPine 2021-0 Yes 10mg Take 10 mg U nivers 10 mg 9-02 by mouth ity of tablet 11:07: daily. [place] [address] Medical Branch amLODIPine 2021-0 Yes 10mg Take 10 mg U nivers 10 mg 9-02 by mouth ity of tablet 11:07: daily. [place] [address] Medical Branch amLODIPine 2021-0 Yes 10mg Take 10 mg U nivers 10 mg 9-02 by mouth ity of tablet 11:07: daily. [address] Branch amLODIPine 2021-0 Yes 10mg Take 10 mg U nivers 10 mg 9-02 by mouth ity of tablet 11:07: daily. [place] [address] Medical Branch atorvastati 2021-0 Yes 40mg Take 40 mg Univers n 40 mg 9-02 by mouth ity of tablet 11:07: at [place] [address] bedtime. Medical Branch atorvastati 2021-0 Yes 40mg Take 40 mg Univers n 40 mg 9-02 by mouth ity of tablet 11:07: at [place] [address] bedtime. Medical Branch atorvastati 2021-0 Yes 40mg Take 40 mg Univers n 40 mg 9-02 by mouth ity of tablet 11:07: at [place] [address] bedtime. Medical Branch atorvastati 2021-0 Yes 40mg Take 40 mg Univers n 40 mg 9-02 by mouth ity of tablet 11:07: at [place] [address] bedtime. Medical Branch atorvastati 2021-0 Yes 40mg Take 40 mg Univers n 40 mg 9-02 by mouth ity of tablet 11:07: at [place] [address] bedtime. Medical Branch atorvastati 2021-0 Yes 40mg Take 40 mg Univers n 40 mg 9-02 by mouth ity of tablet 11:07: at [place] [address] bedtime. Medical Branch atorvastati 2021-0 Yes 40mg Take 40 mg Univers n 40 mg 9-02 by mouth ity of tablet 11:07: at [place] [address] bedtime. Medical Branch IRON-VITAMI 2021-0 Yes Take by Uni vers N B COMPLEX 9-02 mouth. ity of WITH C ORAL 11:07: [place] [address] Medical Branch IRON-VITAMI 2021-0 Yes Take by Uni vers N B COMPLEX 9-02 mouth. ity of WITH C ORAL 11:07: [address] IRON-VITAMI Yes Take by Uni vers N B COMPLEX 9- mouth. ity of WITH C ORAL 11:07: [address] IRON-VITAMI Yes Take by Uni vers N B COMPLEX 9- mouth. ity of WITH C ORAL 11:07: [address] IRON-VITAMI Yes Take by Uni vers N B COMPLEX 9- mouth. ity of WITH C ORAL 11:07: [address] IRON-VITAMI Yes Take by Uni vers N B COMPLEX 9- mouth. ity of WITH C ORAL 11:07: [address] IRON-VITAMI Yes Take by Uni vers N B COMPLEX 9- mouth. ity of WITH C ORAL 11:07: [address] aspirin 81 0 Yes [id number] 81mg Take 1 U nivers mg chewable 8-29 tablet by ity of tablet 00:00: mouth in [place] the Medical morning. Branch aspirin 81 0 Yes [id number] 81mg Take 1 U nivers mg chewable 8-29 tablet by ity of tablet 00:00: mouth in [place] the Medical morning. Branch aspirin 81 2021-0 Yes [id number] 81mg Take 1 U nivers mg chewable 8-29 tablet by ity of tablet 00:00: mouth in [place] the Medical morning. Branch aspirin 81 2021-0 Yes [id number] 81mg Take 1 U nivers mg chewable 8-29 tablet by ity of tablet 00:00: mouth in [place] the Medical morning. Branch aspirin 81 2021-0 Yes [id number] 81mg Take 1 U nivers mg chewable 8-29 tablet by ity of tablet 00:00: mouth in [place] the Medical morning. Branch aspirin 81 2021-0 Yes [id number] 81mg Take 1 U nivers mg chewable 8-29 tablet by ity of tablet 00:00: mouth in [place] the Medical morning. Branch aspirin 81 2021-0 Yes [id number] 81mg Take 1 U nivers mg chewable 8-29 tablet by ity of tablet 00:00: mouth in [place] 00 the Medical morning. Branch aspirin 81 2021-0 Yes [id number] 81mg Take 1 U nivers mg chewable 8-29 tablet by ity of tablet 00:00: mouth in [place] 00 the Medical morning. Branch aspirin 81 2021-0 Yes [id number] 81mg Take 1 U nivers mg chewable 8-29 tablet by ity of tablet 00:00: mouth in [place] the Medical morning. Branch aspirin 81 2021-0 Yes [id number] 81mg Take 1 U nivers mg chewable 8-29 tablet by ity of tablet 00:00: mouth in [place] the Medical morning. Branch aspirin 81 2021-0 Yes [id number] 81mg Take 1 U nivers mg chewable 8-29 tablet by ity of tablet 00:00: mouth in [place] the Medical morning. Branch aspirin 81 2021-0 Yes [id number] 81mg Take 1 [facility] nivers mg chewable 8-29 tablet by ity of tablet 00:00: mouth in [place] the Medical morning. Branch aspirin 81 2021-0 Yes [id number] 81mg Take 1 [facility] nivers mg chewable 8-29 tablet by [facility]y of tablet 00:00: mouth in [place] the Medical morning. Branch aspirin 81 2021-0 Yes [id number] 81mg Take 1 [facility] nivers mg chewable 8-29 tablet by ity of tablet 00:00: mouth in [place] the Medical morning. Branch aspirin 81 2021-0 Yes [id number] 81mg Take 1 [facility] nivers mg chewable 8-29 tablet by [facility]y of tablet 00:00: mouth in [place] the Medical morning. Branch aspirin 81 2021-0 Yes [id number] 81mg Take 1 [facility] nivers mg chewable 8-29 tablet by ity of tablet 00:00: mouth in [place] the Medical morning. Branch aspirin 81 2021-0 Yes [id number] 81mg Take 1 [facility] nivers mg chewable 8-29 tablet by ity of tablet 00:00: mouth in [place] the Medical morning. Branch aspirin 81 2021-0 Yes [id number] 81mg Take 1 [facility] nivers mg chewable 8-29 tablet by ity of tablet 00:00: mouth in [place] the Medical morning. Branch aspirin 81 2021-0 Yes [id number] 81mg Take 1 [facility] nivers mg chewable 8-29 tablet by [facility] of tablet 00:00: mouth in [place] 00 the Medical morning. Branch aspirin 81 2021-0 Yes [id number] 81mg Take 1 [facility] nivers mg chewable 8-29 tablet by ity of tablet 00:00: mouth in [place] the Medical morning. Branch aspirin 81 2021-0 Yes [id number] 81mg Take 1 [facility] nivers mg chewable 8-29 tablet by [facility]y of tablet 00:00: mouth in [place] the Medical morning. Branch aspirin 81 2021-0 Yes [id number] 81mg Take 1 [facility] nivers mg chewable 8-29 tablet by [facility]y of tablet 00:00: mouth in [place] the Medical morning. Branch aspirin 81 2021-0 Yes [id number] 81mg Take 1 [facility]ivers mg chewable 8-29 tablet by [facility] of tablet 00:00: mouth in [place] the Medical morning. Branch aspirin 81 2021-0 Yes [id number] 81mg Take 1 [facility]ivers mg chewable 8-29 tablet by [facility] of tablet 00:00: mouth in [place] the Medical morning. Branch aspirin 81 2021-0 Yes [id number] 81mg Take 1 [facility]ivers mg chewable 8-29 tablet by ity of tablet 00:00: mouth in [place] the Medical morning. Branch aspirin 81 2021-0 Yes [id number] 81mg Take 1 [facility]ivers mg chewable 8-29 tablet by ity of tablet 00:00: mouth in [place] the Medical morning. Branch aspirin 81 2021-0 Yes [id number] 81mg Take 1 [facility]ivers mg chewable 8-29 tablet by [facility] of tablet 00:00: mouth in [place] the Medical morning. Branch aspirin 81 2021-0 Yes [id number] 81mg Take 1 [facility]ivers mg chewable 8-29 tablet by it[facility] of tablet 00:00: mouth in [place] the Medical morning. Branch aspirin 81 2021-0 Yes [id number] 81mg Take 1 [facility]ivers mg chewable 8-29 tablet by [facility] of tablet 00:00: mouth in [place] the Medical morning. Branch aspirin 81 2021-0 Yes [id number] 81mg Take 1 [facility]ivers mg chewable 8-29 tablet by [facility]y of tablet 00:00: mouth in [place] the Medical morning. Branch aspirin 81 2021-0 Yes [id number] 81mg Take 1 [facility] nivers mg chewable 8-29 tablet by [facility] of tablet 00:00: mouth in [place] 00 the Medical morning. Branch aspirin 81 2021-0 Yes [id number] 81mg Take 1 [facility]ivers mg chewable 8-29 tablet by [facility]y of tablet 00:00: mouth in [place] 00 the Medical morning. Branch aspirin 81 2021-0 Yes [id number] 81mg Take 1 [facility] mg chewable 8-29 tablet by [facility] of tablet 00:00: mouth in [place] the Medical morning. Branch aspirin 81 2021-0 Yes [id number] 81mg Take 1 [facility] mg chewable 8-29 tablet by [facility] of tablet 00:00: mouth in [place] the Medical morning. Branch aspirin 81 2021-0 Yes [id number] 81mg Take 1 [facility] mg chewable 8-29 tablet by [facility] of tablet 00:00: mouth in [place] the Medical morning. Branch aspirin 81 2021-0 Yes [id number] 81mg Take 1 [facility] mg chewable 8-29 tablet by [facility] of tablet 00:00: mouth in [place] the Medical morning. Branch aspirin 81 2021-0 Yes [id number] 81mg Take 1 [facility] mg chewable 8-29 tablet by [facility] of tablet 00:00: mouth in [place] the Medical morning. Branch aspirin 81 2021-0 Yes [id number] 81mg Take 1 [facility] nivers mg chewable 8-29 tablet by [facility] of tablet 00:00: mouth in [place] the Medical morning. Branch aspirin 81 2021-0 Yes [id number] 81mg Take 1 [facility] nivers mg chewable 8-29 tablet by [facility] of tablet 00:00: mouth in [place] the Medical morning. Branch aspirin 81 2021-0 Yes [id number] 81mg Take 1 [facility]ivers mg chewable 8-29 tablet by [facility] of tablet 00:00: mouth in [place] the Medical morning. Branch aspirin 81 2021-0 Yes [id number] 81mg Take 1 [facility] nivers mg chewable 8-29 tablet by [facility] of tablet 00:00: mouth in [place] the Medical morning. Branch aspirin 81 2021-0 Yes [id number] 81mg Take 1 [facility] mg chewable 8-29 tablet by [facility] of tablet 00:00: mouth in [place] 00 the Medical morning. Branch aspirin 81 2021-0 Yes [id number] 81mg Take 1 [facility] mg chewable 8-29 tablet by [facility] of tablet 00:00: mouth in [place] 00 the Medical morning. Branch aspirin 81 2021-0 Yes [id number] 81mg Take 1 [facility] mg chewable 8-29 tablet by [facility] of tablet 00:00: mouth in [place] 00 the Medical morning. Branch aspirin 81 2021-0 Yes [id number] 81mg Take 1 [facility] mg chewable 8-29 tablet by [facility] of tablet 00:00: mouth in [place] the Medical morning. Branch aspirin 81 2021-0 Yes [id number] 81mg Take 1 [facility] mg chewable 8-29 tablet by [facility] of tablet 00:00: mouth in [place] the Medical morning. Branch aspirin 81 2021-0 Yes [id number] 81mg Take 1 [facility] mg chewable 8-29 tablet by [facility] of tablet 00:00: mouth in [place] the Medical morning. Branch aspirin 81 2021-0 Yes [id number] 81mg Take 1 [facility] nivers mg chewable 8-29 tablet by [facility] of tablet 00:00: mouth in [place] 00 the Medical morning. Branch aspirin 81 2021-0 Yes [id number] 81mg Take 1 [facility]ivers mg chewable 8-29 tablet by it[facility] of tablet 00:00: mouth in [place] the Medical morning. Branch aspirin 81 2021-0 Yes [id number] 81mg Take 1 [facility] nivers mg chewable 8-29 tablet by [facility] of tablet 00:00: mouth in [place] the Medical morning. Branch aspirin 81 2021-0 Yes [id number] 81mg Take 1 [facility] mg chewable 8-29 tablet by [facility] of tablet 00:00: mouth in [place] the Medical morning. Branch aspirin 81 2021-0 Yes [id number] 81mg Take 1 [facility] nivers mg chewable 8-29 tablet by [facility] of tablet 00:00: mouth in [place] the Medical morning. Branch aspirin 81 2021-0 Yes [id number] 81mg Take 1 [facility] mg chewable 8-29 tablet by [facility] of tablet 00:00: mouth in [place] 00 the Medical morning. Branch aspirin 81 2021-0 Yes [id number] 81mg Take 1 [facility] mg chewable 8-29 tablet by [facility] of tablet 00:00: mouth in [place] 00 the Medical morning. Branch aspirin 81 2021-0 Yes [id number] 81mg Take 1 [facility] mg chewable 8-29 tablet by [facility] of tablet 00:00: mouth in [place] 00 the Medical morning. Branch aspirin 81 2021-0 Yes [id number] 81mg Take 1 [facility] nivers mg chewable 8-29 tablet by [facility] of tablet 00:00: mouth in [place] 00 the Medical morning. Branch aspirin 81 2021-0 Yes [id number] 81mg Take 1 [facility] nivers mg chewable 8-29 tablet by ity of tablet 00:00: mouth in [place] [address] the Medical morning. Branch MAGNESIUM 2021-0 Yes 400mg Take 400 Uni vers ORAL 8-28 mg by ity of 14:34: mouth. [address] MAGNESIUM 2021-0 Yes 400mg Take 400 Uni vers ORAL 8-28 mg by ity of 14:34: mouth. [address] MAGNESIUM 2021-0 Yes 400mg Take 400 Uni vers ORAL 8-28 mg by ity of 14:34: mouth. [address] MAGNESIUM 2021-0 Yes 400mg Take 400 Uni vers ORAL 8-28 mg by ity of 14:34: mouth. [address] MAGNESIUM 2021-0 Yes 400mg Take 400 Uni vers ORAL 8-28 mg by ity of 14:34: mouth. [address] MAGNESIUM 2021-0 Yes 400mg Take 400 Uni vers ORAL 8-28 mg by ity of 14:34: mouth. [address] MAGNESIUM 2021-0 Yes 400mg Take 400 Uni vers ORAL 8-28 mg by ity of 14:34: mouth. [address] nitroglycer 2021-0 2021- No [id number] .4mg Place 1 Univers in 0.4 mg 8-03-15 tablet ity of sublingual 00:00: 04:59 under the [place] tablet 00 :00 [facility] every 5 Branch (five) minutes as needed for Chest pain (Take 1 pill every 5 minutes for chest pain up to 3 pills. Call 911 / Ambulance for chest pain) for up to 30 days. nitroglycer 2021-0 2021- No [id number] .4mg Place 1 Univers in 0.4 mg 8-03-15 tablet ity of sublingual 00:00: 04:59 under the [place] tablet 00 :00 tongue Medical every 5 Branch (five) minutes as needed for Chest pain (Take 1 pill every 5 minutes for chest pain up to 3 pills. Call 911 / Ambulance for chest pain) for up to 30 days. nitroglycer 2021-0 2021- No [id number] .4mg Place 1 Univers in 0.4 mg 02-12 tablet ity of sublingual 00:00: 04:59 under the [place] tablet 00 :00 tongue Medical every 5 Branch (five) minutes as needed for Chest pain (Take 1 pill every 5 minutes for chest pain up to 3 pills. Call 911 / Ambulance for chest pain) for up to 30 days. nitroglycer 2021- No [id number] .4mg Place 1 Univers in 0.4 mg 02-12 tablet ity of sublingual 00:00: 04:59 under the [place] tablet 00 :00 tongue Medical every 5 Branch (five) minutes as needed for Chest pain (Take 1 pill every 5 minutes for chest pain up to 3 pills. Call 911 / Ambulance for chest pain) for up to 30 days. nitroglycer 2021- No [id number] .4mg Place 1 Univers in 0.4 mg 02-12 tablet ity of sublingual 00:00: 04:59 under the [place] tablet 00 :00 tongue Medical every 5 Branch (five) minutes as needed for Chest pain (Take 1 pill every 5 minutes for chest pain up to 3 pills. Call 911 / Ambulance for chest pain) for up to 30 days. nitroglycer 2021- No [id number] .4mg Place 1 Univers in 0.4 mg 02-12 tablet ity of sublingual 00:00: 04:59 under the [place] tablet 00 :00 tongue Medical every 5 Branch (five) minutes as needed for Chest pain (Take 1 pill every 5 minutes for chest pain up to 3 pills. Call 911 / Ambulance for chest pain) for up to 30 days. Multivitami Yes [id number] 1{tbl} Take 1 Univers n Cmb 7-07 tablet by ity of No.21-Iron- 00:00: mouth [place] FA 18-400 00 daily. Medical mg-mcg Tab Branch Multivitami Yes [id number] 1{tbl} Take 1 [facility] n Cmb 7-07 tablet by ity of No.21-Iron- 00:00: mouth [place] FA 18-400 00 daily. Medical mg-mcg Tab Branch Multivitami Yes [id number] 1{tbl} Take 1 [facility] n Cmb 7-07 tablet by ity of No.21-Iron- 00:00: mouth [place] FA 18-400 00 daily. Medical mg-mcg Tab Branch Multivitami 0 Yes [id number] 1{tbl} Take 1 [facility] n Cmb 7-07 tablet by ity of No.21-Iron- 00:00: mouth [place] FA 18-400 00 daily. Medical mg-mcg Tab Branch Multivitami 0 Yes [id number] 1{tbl} Take 1 [facility] n Cmb 7-07 tablet by ity of No.21-Iron- 00:00: mouth [place] FA 18-400 00 daily. Medical mg-mcg Tab Branch Multivitami Yes [id number] 1{tbl} Take 1 [facility] n Cmb 7-07 tablet by ity of No.21-Iron- 00:00: mouth [place] FA 18-400 00 daily. Medical mg-mcg Tab Branch Multivitami Yes [id number] 1{tbl} Take 1 Univers n Cmb 7-07 tablet by ity of No.21-Iron- 00:00: mouth [place] FA 18-400 00 daily. Medical mg-mcg Tab Branch Multivitami Yes [id number] 1{tbl} Take 1 Univers n Cmb 7-07 tablet by ity of No.21-Iron- 00:00: mouth [place] FA 18-400 00 daily. Medical mg-mcg Tab Branch Multivitami 0 Yes [id number] 1{tbl} Take 1 [facility] n Cmb 7-07 tablet by ity of No.21-Iron- 00:00: mouth [place] FA 18-400 00 daily. Medical mg-mcg Tab Branch Multivitami Yes [id number] 1{tbl} Take 1 Univers n Cmb 7-07 tablet by ity of No.21-Iron- 00:00: mouth [place] FA 18-400 00 daily. Medical mg-mcg Tab Branch Multivitami 0 Yes [id number] 1{tbl} Take 1 Univers n Cmb 7-07 tablet by ity of No.21-Iron- 00:00: mouth [place] FA 18-400 00 daily. Medical mg-mcg Tab Branch Multivitami 0 Yes [id number] 1{tbl} Take 1 Univers n Cmb 7-07 tablet by ity of No.21-Iron- 00:00: mouth [place] FA 18-400 00 daily. Medical mg-mcg Tab Branch Multivitami 0 Yes [id number] 1{tbl} Take 1 [facility] n Cmb 7-07 tablet by ity of No.21-Iron- 00:00: mouth [place] FA 18-400 00 daily. Medical mg-mcg Tab Branch Multivitami Yes [id number] 1{tbl} Take 1 Univers n Cmb 7-07 tablet by ity of No.21-Iron- 00:00: mouth [place] FA 18-400 00 daily. Medical mg-mcg Tab Branch Multivitami Yes [id number] 1{tbl} Take 1 Univers n Cmb 7-07 tablet by ity of No.21-Iron- 00:00: mouth [place] FA 18-400 00 daily. Medical mg-mcg Tab Branch Multivitami Yes [id number] 1{tbl} Take 1 [facility] n Cmb 7-07 tablet by ity of No.21-Iron- 00:00: mouth [place] FA 18-400 00 daily. Medical mg-mcg Tab Branch Multivitami Yes [id number] 1{tbl} Take 1 Univers n Cmb 7-07 tablet by ity of No.21-Iron- 00:00: mouth [place] FA 18-400 00 daily. Medical mg-mcg Tab Branch Multivitami Yes [id number] 1{tbl} Take 1 Univers n Cmb 7-07 tablet by ity of No.21-Iron- 00:00: mouth [place] FA 18-400 00 daily. Medical mg-mcg Tab Branch Multivitami 0 Yes [id number] 1{tbl} Take 1 Univers n Cmb 7-07 tablet by ity of No.21-Iron- 00:00: mouth [place] FA 18-400 00 daily. Medical mg-mcg Tab Branch Multivitami 0 Yes [id number] 1{tbl} Take 1 Univers n Cmb 7-07 tablet by ity of No.21-Iron- 00:00: mouth [place] FA 18-400 00 daily. Medical mg-mcg Tab Branch Multivitami 2022-0 Yes [id number] 1{tbl} Take 1 Univers n Cmb 7-07 tablet by ity of No.21-Iron- 00:00: mouth [place] FA 18-400 00 daily. Medical mg-mcg Tab Branch Multivitami Yes [id number] 1{tbl} Take 1 Univers n Cmb 7-07 tablet by ity of No.21-Iron- 00:00: mouth [place] FA 18-400 00 daily. Medical mg-mcg Tab Branch Multivitami Yes [id number] 1{tbl} Take 1 [facility] n Cmb 7-07 tablet by ity of No.21-Iron- 00:00: mouth [place] FA 18-400 00 daily. Medical mg-mcg Tab Branch Multivitami Yes [id number] 1{tbl} Take 1 [facility] n Cmb 7-07 tablet by ity of No.21-Iron- 00:00: mouth [place] FA 18-400 00 daily. Medical mg-mcg Tab Branch Multivitami Yes [id number] 1{tbl} Take 1 [facility] n Cmb 7-07 tablet by ity of No.21-Iron- 00:00: mouth [place] FA 18-400 00 daily. Medical mg-mcg Tab Branch Multivitami Yes [id number] 1{tbl} Take 1 [facility] n Cmb 7-07 tablet by ity of No.21-Iron- 00:00: mouth [place] FA 18-400 00 daily. Medical mg-mcg Tab Branch Multivitami Yes [id number] 1{tbl} Take 1 Univers n Cmb 7-07 tablet by ity of No.21-Iron- 00:00: mouth [place] FA 18-400 00 daily. Medical mg-mcg Tab Branch Multivitami 0 Yes [id number] 1{tbl} Take 1 Univers n Cmb 7-07 tablet by ity of No.21-Iron- 00:00: mouth [place] FA 18-400 00 daily. Medical mg-mcg Tab Branch Multivitami 0 Yes [id number] 1{tbl} Take 1 Univers n Cmb 7-07 tablet by ity of No.21-Iron- 00:00: mouth [place] FA 18-400 00 daily. Medical mg-mcg Tab Branch Multivitami Yes [id number] 1{tbl} Take 1 Univers n Cmb 7-07 tablet by ity of No.21-Iron- 00:00: mouth [place] FA 18-400 00 daily. Medical mg-mcg Tab Branch Multivitami Yes [id number] 1{tbl} Take 1 Univers n Cmb 7-07 tablet by ity of No.21-Iron- 00:00: mouth [place] FA 18-400 00 daily. Medical mg-mcg Tab Branch Multivitami Yes [id number] 1{tbl} Take 1 Univers n Cmb 7-07 tablet by ity of No.21-Iron- 00:00: mouth [place] FA 18-400 00 daily. Medical mg-mcg Tab Branch Multivitami Yes [id number] 1{tbl} Take 1 [facility] n Cmb 7-07 tablet by ity of No.21-Iron- 00:00: mouth [place] FA 18-400 00 daily. Medical mg-mcg Tab Branch Multivitami Yes [id number] 1{tbl} Take 1 [facility] n Cmb 7-07 tablet by ity of No.21-Iron- 00:00: mouth [place] FA 18-400 00 daily. Medical mg-mcg Tab Branch Multivitami Yes [id number] 1{tbl} Take 1 Univers n Cmb 7-07 tablet by ity of No.21-Iron- 00:00: mouth [place] FA 18-400 00 daily. Medical mg-mcg Tab Branch Multivitami Yes [id number] 1{tbl} Take 1 Univers n Cmb 7-07 tablet by ity of No.21-Iron- 00:00: mouth [place] FA 18-400 00 daily. Medical mg-mcg Tab Branch Multivitami Yes [id number] 1{tbl} Take 1 Univers n Cmb 7-07 tablet by ity of No.21-Iron- 00:00: mouth [place] FA 18-400 00 daily. Medical mg-mcg Tab Branch Multivitami Yes [id number] 1{tbl} Take 1 Univers n Cmb 7-07 tablet by ity of No.21-Iron- 00:00: mouth [place] FA 18-400 00 daily. Medical mg-mcg Tab Branch Multivitami Yes [id number] 1{tbl} Take 1 Univers n Cmb 7-07 tablet by ity of No.21-Iron- 00:00: mouth [place] FA 18-400 00 daily. Medical mg-mcg Tab Branch Multivitami Yes [id number] 1{tbl} Take 1 Univers n Cmb 7-07 tablet by ity of No.21-Iron- 00:00: mouth [place] FA 18-400 00 daily. Medical mg-mcg Tab Branch Multivitami Yes [id number] 1{tbl} Take 1 Univers n Cmb 7-07 tablet by ity of No.21-Iron- 00:00: mouth [place] FA 18-400 00 daily. Medical mg-mcg Tab Branch Multivitami Yes [id number] 1{tbl} Take 1 [facility] n Cmb 7-07 tablet by ity of No.21-Iron- 00:00: mouth [place] FA 18-400 00 daily. Medical mg-mcg Tab Branch Multivitami Yes [id number] 1{tbl} Take 1 Univers n Cmb 7-07 tablet by ity of No.21-Iron- 00:00: mouth [place] FA 18-400 00 daily. Medical mg-mcg Tab Branch Multivitami Yes [id number] 1{tbl} Take 1 [facility] n Cmb 7-07 tablet by ity of No.21-Iron- 00:00: mouth [place] FA 18-400 00 daily. Medical mg-mcg Tab Branch Multivitami Yes [id number] 1{tbl} Take 1 [facility] n Cmb 7-07 tablet by ity of No.21-Iron- 00:00: mouth [place] FA 18-400 00 daily. Medical mg-mcg Tab Branch Multivitami Yes [id number] 1{tbl} Take 1 Univers n Cmb 7-07 tablet by ity of No.21-Iron- 00:00: mouth [place] FA 18-400 00 daily. Medical mg-mcg Tab Branch Multivitami 0 Yes [id number] 1{tbl} Take 1 [facility] n Cmb 7-07 tablet by ity of No.21-Iron- 00:00: mouth [place] FA 18-400 00 daily. Medical mg-mcg Tab Branch Multivitami Yes [id number] 1{tbl} Take 1 Univers n Cmb 7-07 tablet by ity of No.21-Iron- 00:00: mouth [place] FA 18-400 00 daily. Medical mg-mcg Tab Branch Multivitami Yes [id number] 1{tbl} Take 1 Univers n Cmb 7-07 tablet by ity of No.21-Iron- 00:00: mouth [place] FA 18-400 00 daily. Medical mg-mcg Tab Branch Multivitami 2022- No [id number] 1{tbl} Take 1 Univers n Cmb 7-07 07-12 tablet by ity of No.21-Iron- 00:00: 00:[place] 18-400 00 :00 daily. Medical mg-mcg Tab Branch Multivitami 2022- No [id number] 1{tbl} Take 1 Univers n Cmb 7-07 07-12 tablet by ity of No.21-Iron- 00:00: 00:[place] 18-400 00 :00 daily. Medical mg-mcg Tab Branch lisinopriL Yes [id number] 10mg Take 1 Univers 10 mg 6-14 tablet by ity of tablet 00:00: mouth at [place] 00 bedtime. Medical Branch lisinopriL Yes [id number] 10mg Take 1 Univers 10 mg 6-14 tablet by ity of tablet 00:00: mouth at [place] [address] bedtime. Medical Branch lisinopriL Yes [id number] 10mg Take 1 Univers 10 mg 6-14 tablet by ity of tablet 00:00: mouth at [place] 00 bedtime. Medical Branch lisinopriL Yes [id number] 10mg Take 1 Univers 10 mg 6-14 tablet by ity of tablet 00:00: mouth at [place] 00 bedtime. Medical Branch lisinopriL Yes [id number] 10mg Take 1 Univers 10 mg 6-14 tablet by ity of tablet 00:00: mouth at [place] 00 bedtime. Medical Branch lisinopriL Yes [id number] 10mg Take 1 Univers 10 mg 6-14 tablet by ity of tablet 00:00: mouth at [place] 00 bedtime. Medical Branch lisinopriL 2021-0 Yes [id number] 10mg Take 1 Univers 10 mg 6-14 tablet by ity of tablet 00:00: mouth at [place] [address] bedtime. Medical Branch lisinopriL 2021-0 Yes [id number] 10mg Take 1 Univers 10 mg 6-14 tablet by ity of tablet 00:00: mouth at [place] [address] bedtime. Medical Branch lisinopriL 2021-0 Yes [id number] 10mg Take 1 Univers 10 mg 6-14 tablet by ity of tablet 00:00: mouth at [place] [address] bedtime. Medical Branch lisinopriL 2021-0 Yes [id number] 10mg Take 1 Univers 10 mg 6-14 tablet by ity of tablet 00:00: mouth at [place] [address] bedtime. Medical Branch lisinopriL 2021-0 Yes [id number] 10mg Take 1 Univers 10 mg 6-14 tablet by ity of tablet 00:00: mouth at [place] [address] bedtime. Medical Branch lisinopriL 2021-0 Yes [id number] 10mg Take 1 Univers 10 mg 6-14 tablet by ity of tablet 00:00: mouth at [place] [address] bedtime. Medical Branch lisinopriL 2021-0 Yes [id number] 10mg Take 1 [facility] 10 mg 6-14 tablet by ity of tablet 00:00: mouth at [place] [address] bedtime. Medical Branch lisinopriL 2021-0 Yes [id number] 10mg Take 1 Univers 10 mg 6-14 tablet by ity of tablet 00:00: mouth at [place] [address] bedtime. Medical Branch lisinopriL 2021-0 Yes [id number] 10mg Take 1 Univers 10 mg 6-14 tablet by ity of tablet 00:00: mouth at [place] [address] bedtime. Medical Branch lisinopriL 2021-0 Yes [id number] 10mg Take 1 Univers 10 mg 6-14 tablet by ity of tablet 00:00: mouth at [place] [address] bedtime. Medical Branch lisinopriL 2021-0 Yes [id number] 10mg Take 1 Univers 10 mg 6-14 tablet by ity of tablet 00:00: mouth at [place] [address] bedtime. Medical Branch lisinopriL 2021-0 Yes [id number] 10mg Take 1 Univers 10 mg 6-14 tablet by ity of tablet 00:00: mouth at [place] 00 bedtime. Medical Branch lisinopriL Yes [id number] 10mg Take 1 Univers 10 mg 6-14 tablet by ity of tablet 00:00: mouth at [place] 00 bedtime. Medical Branch lisinopriL Yes [id number] 10mg Take 1 [facility] 10 mg 6-14 tablet by ity of tablet 00:00: mouth at [place] 00 bedtime. Medical Branch lisinopriL Yes [id number] 10mg Take 1 [facility] 10 mg 6-14 tablet by ity of tablet 00:00: mouth at [place] 00 bedtime. Medical Branch lisinopriL 2021- No [id number] 10mg Take 1 Univers 10 mg 6-14 11-14 tablet by ity of tablet 00:00: 00:00 mouth at [place] 00 :00 bedtime. Medical Branch lisinopriL 2021- No [id number] 10mg Take 1 [facility] 10 mg 6-14 11-14 tablet by ity of tablet 00:00: 00:00 mouth at [place] 00 :00 bedtime. Medical Branch lisinopriL 2021- No [id number] 10mg Take 1 [facility] 10 mg 6-14 11-14 tablet by ity of tablet 00:00: 00:00 mouth at [place] 00 :00 bedtime. Medical Branch metoprolol Yes 50mg QD Take [address] [facility] (TOPROL-XL) 1 by mouth [facility] 50 MG 24 hr 15:54: daily. [place] [address] [facility] omeprazole Yes gastroesoph 20mg QD Take [address] [facility] (PRILOSEC) 1- ageal by mouth [facility] 20 MG 15:54: reflux daily. Medical [facility] Center Immunizations Ordered Immunization Filled Immunization Date Status Commen ts Source Name Name Influenza High Dose Unknown Completed [facility] ([id number]) Vital Signs Vital Name Observation Time Observation Value Comments Source Systolic blood 2022-12-27 21:03:00 147 mm[Hg] [facility] s[facility] of pressure [facility] Diastolic blood 2022-12-27 21:03:00 76 mm[Hg] Unive rsity of pressure [facility] Heart rate 2022-12-27 21:03:00 62 /min [facility] [place] [facility] Respiratory rate 2022-12-27 21:03:00 20 /min [facility] [place] [facility] Body height 2022-12-27 21:03:00 168.9 cm [facility] [place] [facility] Body weight 2022-12-27 21:03:00 69.128 kg [facility] [place] [facility] BMI 2022-12-27 21:03:00 24.23 kg/m2 [facility] [place] [facility] Oxygen saturation in 2022-12-27 21:03:00 98 /min [facility] of Arterial blood by [facility] Pulse oximetry Branch Respiratory rate 2022-12-15 15:18:00 17 /min [facility] [place] [facility] Oxygen saturation in 2022-12-15 15:18:00 95 /min [facility] of Arterial blood by [facility] Pulse oximetry Branch Systolic blood 2022-12-15 15:17:00 153 mm[Hg] Un[facility] sity of pressure [place] [facility] Diastolic blood 2022-12-15 15:17:00 77 mm[Hg] Unive rsity of pressure [place] [facility] Heart rate 2022-12-15 14:56:00 57 /min [facility] [place] [facility] Body temperature 2022-12-15 14:35:00 36.39 [place] [facility] [place] [facility] Body height 2022-12-11 22:00:00 167.6 cm [facility] [place] [facility] Body weight 2022-12-11 22:00:00 68.04 kg [facility] [place] [facility] BMI 2022-12-11 22:00:00 24.21 kg/m2 [facility] [place] [facility] Systolic blood 2022-12-15 12:51:00 129 mm[Hg] Univer sity of pressure [place] [facility] Diastolic blood 2022-12-15 12:51:00 78 mm[Hg] Unive rsity of pressure [place] [facility] Heart rate 2022-12-15 12:51:00 72 /min [facility] [place] [facility] Body temperature 2022-12-15 12:51:00 36.39 [place] [facility] [place] [facility] Respiratory rate 2022-12-15 12:51:00 16 /min [facility] [place] [facility] Oxygen saturation in 2022-12-15 12:51:00 98 /min [facility] of Arterial blood by [facility] Pulse oximetry Branch Body height 2022-12-11 22:00:00 167.6 cm [facility] [place] [facility] Body weight 2022-12-11 22:00:00 68.04 kg [facility] [place] [facility] BMI 2022-12-11 22:00:00 24.21 kg/m2 [facility] [place] [facility] Systolic blood 2022-09-27 19:38:00 114 mm[Hg] Univer sity of pressure [place] [facility] Diastolic blood 2022-09-27 19:38:00 66 mm[Hg] Unive rsity of pressure [place] [facility] Heart rate 2022-09-27 19:38:00 65 /min [facility] Body temperature 2022-09-27 19:38:00 36.72 Davina [facility] Respiratory rate 2022-09-27 19:38:00 18 /min [facility] Body height 2022-09-27 19:38:00 167.6 cm [facility] Body weight 2022-09-27 19:38:00 67.767 kg [facility] BMI 2022-09-27 19:38:00 24.11 kg/m2 [facility] Oxygen saturation in 2022-09-27 19:38:00 95 /min [facility] Arterial blood by [facility] Pulse oximetry Branch Systolic blood 2022-09-10 09:36:00 155 mm[Hg] [facility] Diastolic blood 2022-09-10 09:36:00 85 mm[Hg] [facility] Heart rate 2022-09-10 09:36:00 56 /min [facility] Body temperature 2022-09-10 09:36:00 36.72 Davina [facility] Respiratory rate 2022-09-10 09:36:00 16 /min [facility] Body height 2022-09-10 09:36:00 167.6 cm [facility] Body weight 2022-09-10 09:36:00 68.04 kg [facility] BMI 2022-09-10 09:36:00 24.21 kg/m2 [facility] Oxygen saturation in 2022-09-10 09:36:00 99 /min [facility] Arterial blood by [facility] Pulse oximetry Branch Systolic blood 2022-08-18 17:26:00 143 mm[Hg] [facility] Diastolic blood 2022-08-18 17:26:00 75 mm[Hg] [facility] Heart rate 2022-08-18 17:26:00 69 /min [facility] Oxygen saturation in 2022-08-18 17:26:00 99 /min [facility] Arterial blood by [facility] Pulse oximetry Branch Respiratory rate 2022-08-18 17:24:00 20 /min [facility] Body height 2022-08-18 17:24:00 167.6 cm [facility] Body weight 2022-08-18 17:24:00 68.04 kg [facility] BMI 2022-08-18 17:24:00 24.21 kg/m2 [facility] Heart rate 2022-08-03 17:01:00 56 /min [facility] Body temperature 2022-08-03 17:01:00 36.39 Davina [facility] Respiratory rate 2022-08-03 17:01:00 18 /min [facility] Body weight 2022-08-03 17:01:00 67.858 kg [facility] BMI 2022-08-03 17:01:00 24.15 kg/m2 [facility] Oxygen saturation in 2022-08-03 17:01:00 95 /min [facility] Arterial blood by [facility] Pulse oximetry Branch Systolic blood 2022-08-03 17:01:00 127 mm[Hg] [facility] Diastolic blood 2022-08-03 17:01:00 66 mm[Hg] [facility] Systolic blood 2022-05-01 15:37:00 144 mm[Hg] [facility] Diastolic blood 2022-05-01 15:37:00 73 mm[Hg] [facility] [place] [facility] Heart rate 2022-05-01 15:37:00 57 /min [facility] Oxygen saturation in 2022-05-01 15:37:00 97 /min [facility] Arterial blood by [facility] Pulse oximetry Branch Respiratory rate 2022-05-01 15:34:00 19 /min [facility] Body height 2022-05-01 15:34:00 167.6 cm [facility] Body weight 2022-05-01 15:34:00 68.13 kg [facility] BMI 2022-05-01 15:34:00 24.24 kg/m2 [facility] Systolic blood 2022-04-28 16:03:00 188 mm[Hg] [facility] [place] [facility] Diastolic blood 2022-04-28 16:03:00 92 mm[Hg] [facility] [place] [facility] Heart rate 2022-04-28 16:03:00 61 /min [facility] Body temperature 2022-04-28 16:03:00 36.83 Davina [facility] [place] [facility] Respiratory rate 2022-04-28 16:03:00 20 /min [facility] Body weight 2022-04-28 16:03:00 65.772 kg [facility] [place] [facility] BMI 2022-04-28 16:03:00 23.05 kg/m2 [facility] Oxygen saturation in 2022-04-28 16:03:00 99 /min [facility] Arterial blood by [facility] Pulse oximetry Branch Systolic blood 2022-04-25 21:05:00 147 mm[Hg] [facility] [place] [facility] Diastolic blood 2022-04-25 21:05:00 67 mm[Hg] [facility] [place] [facility] Heart rate 2022-04-25 21:05:00 61 /min [facility] Body temperature 2022-04-25 21:05:00 36 Davina [facility] [place] [facility] Respiratory rate 2022-04-25 21:05:00 16 /min [facility] Body height 2022-04-25 21:05:00 168.9 cm [facility] Body weight 2022-04-25 21:05:00 66.18 kg [facility] BMI 2022-04-25 21:05:00 23.20 kg/m2 [facility] Oxygen saturation in 2022-04-25 21:05:00 98 /min [facility] Arterial blood by [facility] aurelio Pulse oximetry Branch Systolic blood 2022-04-23 12:21:00 154 mm[Hg] [facility] [place] [facility] Diastolic blood 2022-04-23 12:21:00 78 mm[Hg] [facility] Heart rate 2022-04-23 12:21:00 62 /min [facility] Body temperature 2022-04-23 12:21:00 37 Davina [facility] Respiratory rate 2022-04-23 12:21:00 14 /min [facility] Body height 2022-04-23 12:21:00 167.6 cm [facility] Body weight 2022-04-23 12:21:00 63.504 kg [facility] BMI 2022-04-23 12:21:00 22.60 kg/m2 [facility] Oxygen saturation in 2022-04-23 12:21:00 98 /min [facility] Arterial blood by [facility] Pulse oximetry Branch Systolic blood 2022-04-17 21:25:00 130 mm[Hg] [facility] Diastolic blood 2022-04-17 21:25:00 75 mm[Hg] [facility] Heart rate 2022-04-17 21:25:00 63 /min [facility] Body temperature 2022-04-17 21:22:00 36.28 Davina [facility] Body height 2022-04-17 21:22:00 167.6 cm [facility] Body weight 2022-04-17 21:22:00 67.314 kg [facility] BMI 2022-04-17 21:22:00 23.95 kg/m2 [facility] Oxygen saturation in 2022-04-17 21:22:00 98 /min [facility] Arterial blood by [facility] aurelio Pulse oximetry Branch Systolic blood 2022-03-16 16:21:00 133 mm[Hg] [facility] Diastolic blood 2022-03-16 16:21:00 75 mm[Hg] [facility] Heart rate 2022-03-16 16:21:00 59 /min [facility] [place] [facility] Body temperature 2022-03-16 16:21:00 36.06 Davina [facility] Respiratory rate 2022-03-16 16:21:00 16 /min [facility] Oxygen saturation in 2022-03-16 16:21:00 99 /min [facility] Arterial blood by [facility] Pulse oximetry Branch Body height 2022-03-15 15:21:00 167.6 cm [facility] Body weight 2022-03-15 15:21:00 64.456 kg [facility] BMI 2022-03-15 15:21:00 22.94 kg/m2 [facility] Systolic blood 2022-02-17 15:47:00 120 mm[Hg] [facility] Diastolic blood 2022-02-17 15:47:00 69 mm[Hg] [facility] Heart rate 2022-02-17 15:47:00 53 /min [facility] Respiratory rate 2022-02-17 15:47:00 18 /min [facility] Body height 2022-02-17 15:47:00 165.1 cm [facility] Body weight 2022-02-17 15:47:00 63.685 kg [facility] BMI 2022-02-17 15:47:00 23.36 kg/m2 [facility] Oxygen saturation in 2022-02-17 15:47:00 98 /min [facility] Arterial blood by [facility] Pulse oximetry Branch Procedures Procedure Date / Time Performing Clinician Source Performed SLEEP STUDY DATA REPORT 2023-03-01 05:01:00 Doctor Unassigned, [facility] REFERRAL- 2023-01-15 05:01:00 Doctor Unassigned, [facility] REQUEST/RESPONSE [facility] PATIENT FINANCIAL 2022-12-27 20:32:39 Doctor Unassigned, [facility] POLICY [facility] ASSIGNMENT OF BENEFITS 2022-12-27 20:32:20 Doctor Unassigned, [facility] CONSENT/REFUSAL FOR 2022-12-27 20:32:02 Doctor Jennifer [facility] DIAGNOSIS AND TREATMENT [facility] COLONOSCOPY 2022-12-15 13:51:00 Tameka Gibbs [facility] [place] COLONOSCOPY (ENDO) 2022-12-15 13:32:42 Minnie Dyson [facility] [place] COLONOSCOPY (ENDO) 2022-12-15 13:32:42 Minnie Dyson [facility] [place] DAY SURGERY - ADC 2022-12-15 05:01:00 Doctor Rodriguez [facility] CONSENT/REFUSAL FOR 2022-09-10 09:31:53 Doctor Rodriguez [facility] DIAGNOSIS AND TREATMENT [facility] REFERRAL- 2022-08-18 06:01:00 Doctor Jennifer [facility] REQUEST/RESPONSE [facility] DISCLOSURE AND CONSENT, 2022-08-03 06:01:00 Doctor Rodriguez [facility] MEDICAL AND SURGICAL [facility] [place] [facility] PROCEDURES HB CREATININE SERUM/BLOOD 2022-07-27 17:05:00 Minnie Dyson [facility] FOR IMAGING Medical Branch CONSENT/REFUSAL FOR 2022-07-27 15:09:00 [facility] DIAGNOSIS AND TREATMENT [facility] ASSIGNMENT OF BENEFITS 2022-07-27 15:08:27 Doctor Mason Rodriguez [facility] INSURANCE CORRESPONDENCE 2022-07-26 06:01:00 Doctor Rodriguez [facility] CONSENT/REFUSAL FOR 2022-04-23 12:12:27 Doctor Rodriguez [facility] DIAGNOSIS AND TREATMENT [facility] INSURANCE CORRESPONDENCE 2022-04-10 05:01:00 Doctor Rodriguez [facility] POTASSIUM SERUM 2022-03-16 15:45:00 [facility] [place] [facility] HB ECG ROUTINE & RHYTHM 2022-03-16 13:57:04 Gavin Holly [facility] STRIP [facility] MAGNESIUM 2022-03-16 10:51:[address] [facility] TROPONIN I 2022-03-16 10:51:[address] [facility] COMP. METABOLIC PANEL 2022-03-16 10:51:00 Michael Alcaraz [facility] ([id number]) [facility] N-TERMINAL PRO-BNP 2022-03-16 10:51:00 Dereck kenna [facility] TROPONIN I 2022-03-16 01:01:[address] [facility] TROPONIN I 2022-03-15 20:21:[address] [facility] TROPONIN I 2022-03-15 14:28:[address] [facility] XR CHEST 1 VW 2022-03-15 12:54:[address] [facility] PHOSPHORUS 2022-03-15 10:46:[address] [facility] CREATINE KINASE 2022-03-15 10:46:[address] [facility] URIC ACID 2022-03-15 10:46:[address] [facility] MAGNESIUM 2022-03-15 10:46:00 Melody Melendrez [facility] TROPONIN I 2022-03-15 10:46:00 Melody Melendrez [facility] FREE T4 2022-03-15 10:46:00 Dereck kenna [facility] THYROID STIMULATING 2022-03-15 10:46:00 Dereck kenna [facility] HORMONE [facility] Branch COMP. METABOLIC PANEL 2022-03-15 10:46:00 Melody Melendrez [facility] ([id number]) [facility] SEDIMENTATION RATE 2022-03-15 10:46:00 Dereck kenna [facility] CBC WITH DIFF 2022-03-15 10:46:00 Melody Melendrez [facility] PROTHROMBIN TIME / INR 2022-03-15 10:46:00 Melody Melendrez [facility] N-TERMINAL PRO-BNP 2022-03-15 10:46:00 Michael Alcaraz [facility] FREE T3 2022-03-15 10:46:00 Dereck kenna Nixon o [facility] COVID-19 (ID NOW RAPID 2022-03-15 10:46:00 Melody Melendrez [facility] TESTING) Medical Branch LAB ONLY COVID 2022-03-15 10:46:00 Melody Melendrez [facility] INTERPRETATION [facility] HB ECG ROUTINE & RHYTHM 2022-03-15 10:36:16 Melody Melendrez [facility] NM MYOCARDIUM PERFUSION 2022-03-09 18:05:00 Gavin Holly [facility] STRESS AND REST [facility] NM MYOCARDIUM PERFUSION 2022-03-09 18:05:00 Gavin Holly [facility] STRESS AND REST [facility] NM MYOCARDIUM PERFUSION 2022-03-09 18:05:00 Gavin Holly [facility] STRESS AND REST [facility] NM MYOCARDIUM PERFUSION 2022-03-09 18:05:00 Gavin Holly [facility] STRESS AND REST [facility] INSURANCE CORRESPONDENCE 2022-02-16 05:01:00 Doctor Unaterri, [facility] Name [facility] PATIENT QUESTIONNAIRE 2022-01-24 05:01:00 Doctor Unassigned, [facility] Name [facility] Encounters Start End Encounter Admission Attending Care Care Encounter Source Date/Time Date/Time Type Type Clinicians Facility Department ID 2023-06-21 2023-06-21 Outpatient Max GIBBS [facility] [id number] Univers 08:00:00 08:00:00 TAMEKA peterson [facility] 2023-04-11 2023-04-11 Outpatient R SAMPSON PITT [facility] [id number] Univers 10:00:00 10:00:00 SAMPOSN PITT [facility] 2023-03-22 2023-03-22 Telephone Elayne [facility] [id number] Univers 00:00:00 00:00:00 Sendzara YUAN 350.1.13.10 ity [facility] [place].7.2.[place] [facility] [id number] [place] [id number] [employer] 2023-03-14 2023-03-14 Outpatient R QAMARKAITLYNN CHAMBERSPrasanth [facility] [id number] Univers 13:30:00 13:30:00 KAITLYNN PITTL ity [facility] 2023-03-02 2023-03-02 [facility] 1.2.840.114 [id number] Univers 00:00:00 00:00:00 Gavin YUAN 350.1.13.10 ity [facility] [place]2.7.2.[place] [facility] [id number] [address] 2023-03-01 2023-03-01 Filter Tank Tender Helper 1, [facility] Sleep Lab Bed [facility] 1. 2.840.114 [id number] Univers 20:00:00 22:30:00 Visit Sampson Pitt 350.1.13. 10 ity [facility] 4[place]2.7.2.686 [place] [id number] [facility] [address] [place] 2023-03-01 2023-03-01 Outpatient R QAMARKALYANIDANIELLEKAITLYNNPrasanth [facility] [id number] Univers 20:00:00 20:00:00 YOANDY KAITLYNNL ity [facility] 2023-03-01 2023-03-01 Orders Doctor GARCIA 1.2.840.114 [id number] Univers 00:00:00 00:00:00 Only Unassigned, VIKI 350.1.13.10 ity of [place] [facility] 4.2.7.2.686 Bill as [id number] [facility] [address] [place] 2023-02-26 2023-02-26 Outpatient R YOANDYKAITLYNNPrasanth [facility] [id number] Univers 20:00:00 20:00:00 YOANDY SALLYGLENL ity [facility] 2023-01-29 2023-01-29 Outpatient R [facility] [id number] Univers 13:00:00 13:00:00 ity of [facility] 2023-01-25 2023-01-25 Filter Tank Tender Helper 2, Adc Lab [facility] 1.2.840.114 [id number] Univers 10:00:00 10:15:00 Visit Yunier Byrne 350.1.13.10 ity of [place] 4.2.7.2.686 [place] PROFESSIO [id number] Ak dical NAL 353 [employer] 2023-01-25 2023-01-25 Out[facility] [id number] Univers 10:00:00 09:21:01 ALEJANDRO peterson [facility] 2023-01-15 2023-01-15 Orders Doctor GARCIA 1.2.840.114 [id number] Univers 00:00:00 00:00:00 Only Unassigned, VIKI 350.1.13.10 ity of [place] [facility] 4.2.7.2.686 Bill as [id number] [facility] [address] [place] 2023-01-05 2023-01-05 Telephone JOSE Gibbs 1.2.840.114 [id number] Univers 00:00:00 00:00:00 Tameka DREW 350.1.13.10 it y of [facility] 4.2.7.2.686 Bill as [id number] [facility] [address] [place] 2022-12-27 2022-12-27 Outpatient R ELAYNE [facility] [id number] Univers 15:00:00 16:45:55 SENDIL ity [facility] 2022-12-27 2022-12-27 Office Elayne [facility] 1.2.840.114 [id number] Univers 15:00:00 16:45:55 Visit Gavin YUAN 350.1.13.10 ity [facility] 4.2.7.2.686 [place] PROF[place] [id number] Ak dical NAL 059 [employer] 2022-12-27 2022-12-27 Orders Doctor GARCIA 1.2.840.114 [id number] Univers 00:00:00 00:00:00 Only Unassigned, VIKI 350.1.13.10 ity of [place] [facility] 4.2.7.2.686 Bill as [id number] [address] 2022-12-15 2022-12-15 Outpatient R [facility] ARNAV [id number] Univers 07:40:00 10:42:00 TAMEKA ity of [facility] 2022-12-15 2022-12-15 [facility] 1.2.840.114 [id number] Univers 07:40:00 10:42:00 Encounter Tamekatommy YUAN 350.1.13.10 ity of [facility] 4.2.7.2.686 [place] SURGICAL [id number] [facility] [address] Branch 2022-12-15 2022-12-15 Surgery [facility] [id number] Univers 08:21:00 09:19:00 Tameka YUAN 350.1.13.10 i ty of [place] 4.2.7.2.686 [place] SURGICAL [id number] [facility] 020 Branch 2022-12-15 2022-12-15 Telephone [facility] [id number] Univers 00:00:00 00:00:00 Gavin YUAN 350.1.13.10 ity of [place].2.7.2.686 [place] [id number] [facility] 059 [employer] 2022-12-15 2022-12-15 Orders Doctor JOSE 1.2.840.114 [id number] Univers 00:00:00 00:00:00 Only Unassigned, VIKI 350.1.13.10 ity of [place] [facility] 4.2.7.2.686 Bill as [id number] [address] 2022-12-11 2022-12-11 Telephone [facility] 1.2.840.114 [id number] Univers 00:00:00 00:00:00 Tameka YUAN 350.1.13.10 i ty of [place].7.2.686 [place] [id number] Ak dical NAL 188 [employer] 2022-09-27 2022-09-27 Office [facility] [id number] Univers 16:30:00 17:00:00 Visit Sampson YUAN 350.1.13.10 ity of [place] 4.2.7.2.686 [place] [id number] [facility] NAL 085 [employer] 2022-09-27 2022-09-27 Outpatient R SAMPSON PITT [facility] [id number] Univers 16:30:00 16:30:00 YOANDY [facility] ity [facility] 2022-09-10 2022-09-10 Emergency X [facility] ERT [id number] Univers 04:35:00 05:09:00 IADARELL ity [facility] 2022-09-10 2022-09-10 Emergency [facility] [id number] Univers 04:35:00 05:09:00 Melody YUAN 350.1.13.10 ity of [place].2.7.2.686 [place] CAMPUS [id number] [facility] [address] [place] 2022-08-18 2022-08-18 Outpatient R ELAYNE [facility] [id number] Univers 11:00:00 11:56:39 SENDIL ity [facility] 2022-08-18 2022-08-18 [facility] 1.2.840.114 [id number] Univers 11:00:00 11:56:39 Visit Gavin YUAN 350.1.13.10 ity of [place] 4.2.7.2.686 [place] [id number] [facility] NAL 059 [employer] 2022-08-18 2022-08-18 Orders Doctor GARCIA 1.2.840.114 [id number] Univers 00:00:00 00:00:00 Only Unassigned, VIKI 350.1.13.10 ity of [place] [facility] 4.2.7.2.686 Bill as [id number] [facility] [address] [place] 2022-08-08 2022-08-08 Prep For [facility] 1.2.840.114 [id number] Univers 00:00:00 00:00:00 Surgery Tameka LISSY 350.1.13.10 i ty of [facility] 4.2.7.2.686 [place] [id number] Ak dical NAL 188 [employer] 2022-08-03 2022-08-03 Out[facility] [id number] Univers 11:00:00 11:19:00 TAMEKA itkahlil [facility] 2022-08-03 2022-08-03 Office [facility] [id number] Univers 11:00:00 11:19:00 Visit Tameka YUAN 350.1.13.10 i ty of [place] 4.2.7.2.[place] [id number] [address] 2022-08-03 2022-08-03 Orders Doctor JOSE 1.2.840.114 [id number] Univers 00:00:00 00:00:00 Only Unassigned, VIKI 350.1.13.10 ity of [place] [facility] 4.2.7.2.686 Bill as [id number] [facility] [address] [place] 2022-08-01 2022-08-01 Outpatient R ANTHONY HOPE [facility] [id number] Univers 13:00:00 13:32:04 ANTHONY HOPE [facility] 2022-08-01 2022-08-01 Office Louann Leija 1.2.840.1 [id number] Univers 13:00:00 13:32:04 Visit Anthony Hope 350.1.13.10 ity of [facility] 4.2.7.2.686 Bill as [id number] [facility] [address] [place] 2022-07-27 2022-07-27 [facility] 1.2.840.114 [id number] Univers 09:13:14 23:59:00 Encounter Minnie YUAN 350.1.13.10 ity of [place] 4.2.7.2.686 [place] [id number] [facility] [address] [place] 2022-07-27 2022-07-27 Filter Tank Tender Helper 2, Adc Lab [facility] 1.2.840.114 [id number] Univers 09:00:00 09:15:00 Visit Alejandro Green 350.1.13.10 ity of [facility] 4.2.7.2.686 [place] [id number] Ak dical NAL 353 [employer] 2022-07-27 2022-07-27 Outpatient R KIEL [facility] [id number] Univers 09:12:00 09:12:00 MINNIE ity [facility] 2022-07-27 2022-07-27 Hospital [facility] 1.2.840.114 [id number] Univers 09:12:00 09:12:00 Encounter Minnie YUAN 350.1.13.10 ity of [place] 4.2.7.2.686 [place] [facility] [id number] [facility] [address] [place] 2022-07-26 2022-07-26 Orders Doctor JOSE 1.2.840.114 [id number] Univers 00:00:00 00:00:00 Only Unassigned, VIKI 350.1.13.10 ity of [place] [facility] 4.2.7.2.686 Bill as [id number] [facility] [address] [place] 2022-05-25 2022-05-25 Filter Tank Tender Helper 2, Adc Lab [facility] 1.2.840.114 [id number] Univers 09:00:00 09:15:00 Visit Gavin Holly 350.1.13. 10 ity of [place] 4.2.7.2.[place] [id number] Ak dical NAL 353 [employer] 2022-05-25 2022-05-25 Outpatient R ELAYNE [facility] [id number] Univers 09:00:00 09:00:00 [facility] 2022-05-01 Outpatient R ASHA [facility] [id number] Univers 16:20:00 16:20:00 NINA [facility] 2022-05-01 2022-05-01 [facility] [id number] Univers 09:30:00 10:06:18 SENDIL ity [facility] 2022-05-01 2022-05-01 [facility] 1.2.840.114 [id number] Univers 09:30:00 10:06:18 Visit Gavin [facility]AN 350.1.13.10 [facility] 4.2.7.2.686 [facility] [id number] Ak dical NAL 059 [employer] 2022-04-28 2022-04-28 Emergency [facility] E[facility] [id number] Univers 10:04:00 10:29:00 [facility] 2022-04-28 2022-04-28 Emergency [facility] 1.2.840.114 [id number] Univers 10:04:00 10:29:00 Michelle YUAN 350.1.13.10 ity [facility] 4.2.7.2.686 [facility] [id number] [place] 640114 [place] 2022-04-25 2022-04-25 Outpatient R [facility] [id number] Univers 14:00:00 15:45:57 MINNIE peterson [facility] 2022-04-25 2022-04-25 Office Louann LeijaYUNI 1.2.840.1 14 [id number] Univers 14:00:00 15:45:57 [facility]13.10 [facility] 4.2.7.2.686 Bill [phone] [address] 2022-04-23 2022-04-23 Emergency X FATMATA [facility] ERT [id number] Univers 06:40:00 06:42:00 KIM peterson [facility] 2022-04-23 2022-04-23 [facility] 1.2.374.745 [id number] Univers 06:40:00 06:42:00 Kim YUAN 350.1.13.10 i ty of [address] [place] [id number] [facility] [address] [place] 2022-04-21 2022-04-21 Filter Tank Tender Helper 2, Adc Lab [facility] 1.2.840.114 [id number] Univers 08:30:00 08:45:00 Visit Alejandro Green LISSY 350.1.13.10 ity [facility] [place] [id number] Ak dical NAL [address] [employer] 2022-04-21 2022-04-21 Out[facility] [id number] Univers 08:30:00 08:30:00 ALEJANDRO peterson [facility] 2022-04-17 2022-04-17 Office [facility] 1.2.840.114 [id number] Univers 16:20:00 17:00:00 Visit Nina YUAN 350.1.13.10 i ty of [place] [phone] Ak dical NAL 059 [employer] 2022-04-17 2022-04-17 [facility] [id number] Univers 16:20:00 16:20:00 NINA peterson [facility] 2022-04-10 2022-04-10 Orders Doctor GARCIA 1.2.840.114 [id number] Univers 00:00:00 00:00:00 Only Unassigned, VIKI 350.1.13.10 ity of [place] [facility] 4.2.7.2.686 Bill as [id number] [facility] [address] [place] 2022-04-02 2022-04-02 Telephone Elayne [facility] 1.2.858.538 [id number] Univers 00:00:00 00:00:00 Gavin YUAN 350.1.13.10 it[place] [id number] Ak dical NAL 059 [employer] 2022-04-02 2022-04-02 Telephone Lucho GARCIA 1.2.840.114 [id number] Univers 00:00:00 00:00:00 , Sabino DREW 350.1.13.10 ity of [facility] 4.2.7.2.686 Bill as [phone] [facility] [address] 2022-03-21 2022-03-21 Telephone TAYLOR Holly 1.2.839.674 [id number] Univers 00:00:00 00:00:00 Sendil Rachael YUAN 350.1.13.10 ity of [place] [id number] [facility] [address] [facility] 2022-03-17 2022-03-17 Transition JEREMIAS Nolen 1.2.840.114 [id number] Univers 00:00:00 00:00:00 of Jose CORBETT 350.1.13.10 it y of [place] [id number] [facility] [address] 2022-03-15 2022-03-16 Outpatient X [facility]ONG [facility] [id number] Univers 05:45:00 13:13:00 WAKILI ity [facility] 2022-03-15 2022-03-16 Emergency Melody Melendrez S [facility] 1.2.840 .114 [id number] Univers 05:45:00 13:13:00 Michael Alcaraz 350.1.13.10 ity [place] [id number] [facility] [address] 2022-03-10 2022-03-10 Outpatient R [facility] [id number] Univers 14:00:00 14:19:00 SENDIL ity [facility] 2022-03-10 2022-03-10 Outpatient R [facility] [id number] Univers 14:00:00 14:00:00 SENDIL ity [facility] 2022-03-10 2022-03-10 Outpatient R [facility] [id number] Univers 08:00:00 08:00:00 SENDIL ity [facility] 2022-03-09 2022-03-09 [facility] Elayne [facility] 1.2.840.114 [id number] Univers 09:55:07 23:59:00 Encounter Sendil Rachael YUAN 350.1.13.10 ity of [facility] 4.2.7.2.686 [facility] [id number] [address] 2022-03-09 2022-03-09 [facility] 1.2.840.114 [id number] Univers 09:30:00 09:54:00 Encounter Sendil Rachael YUAN 350.1.13.10 ity of [facility] 4.2.7.2.686 [facility] [id number] [address] 2022-03-09 2022-03-09 Outpatient [facility] [id number] Univers 09:55:32 09:29:00 SENDIL ity [facility] 2022-03-09 2022-03-09 Outpatient [facility] [id number] Univers 09:55:32 09:29:00 SENDIL ity [facility] 2022-03-09 2022-03-09 [facility] 1.2.840.114 [id number] Univers 09:00:00 09:29:00 Encounter Gavin YUAN 350.1.13.10 ity of [place] [address] [place] [id number] 2022-03-09 2022-03-09 [facility] 1.2.840.114 [id number] Univers 08:00:00 08:59:00 Encounter Gavin YUAN 350.1.13.10 ity of [place] 4.2.7.2.686 [facility] [id number] [address] 2022-02-17 2022-02-17 Out[facility] [id number] Univers 10:30:00 11:14:23 SENDIL ity [facility] 2022-02-17 2022-02-17 [facility] 1.2.840.114 [id number] Univers 10:30:00 11:14:23 Visit Gavin YUAN 350.1.13.10 ity of [facility] 4.[place] [id number] Ak dical [facility] [address] [facility] 2022-02-16 2022-02-16 Orders Doctor JOSE 1.2.840.114 [id number] Univers 00:00:00 00:00:00 Only Unassigned, VIKI 350.1.13.10 ity of [place] [facility] 4.2.7.2.686 Bill as [phone] [facility] [address] 2022-02-14 2022-02-14 Transition JEREMIAS Nolen 1.2.840.114 [id number] Univers 00:00:00 00:00:00 of Care Maricruz CORBETT 350.1.13.10 it y of [place] [id number] [facility] [address] 2022-02-14 2022-02-14 Case JOSE Holly 1.2.840.114 [id number] Univers 00:00:00 00:00:00 Management Gavin DREW 350.1.13.10 ity of HOSPITAL 4.2.7.2.686 Bill as [id number] [facility] [address] 2022-02-11 2022 Outpatient X [facility]ER[facility] [id number] Univers 23:22:00 14:34:00 MICHAEL itkahlil of [facility] 2022-02-11 2022 Emergency Alok Garcia [facility] 1.2.840. 114 [id number] Univers 23:22:00 14:34:00 Michael Alcaraz 350.1.13.10 ity of [place] [id number] [facility] [address] 2022-02-02 2022-02-02 Outpatient R [facility] [id number] Univers 10:30:00 11:28:45 TAMEKA peterson of [facility] 2022-02-02 2022-02-02 Office Sai [facility] 1.2.458.544 [id number] Univers 10:30:00 11:28:45 Visit Tameka LISSY 350.1.13.10 i ty of [place] [id number] [facility] 188 [employer] 2022-02-01 2022-02-01 Multidisci ERICK Dyson 1.2.840.11 [id number] Univers 00:00:00 00:00:00 plinary Minnie B Y HEALTH 350.1.13.10 i ty of [facility] 4.2.7.2.[place] [id number] [facility] [address] [place] 2022-01-24 2022-01-24 [facility] [id number] Univers 13:00:00 14:49:00 MINNIE peterson [facility] 2022-01-24 2022-01-24 Office Louann Leija 1.2.840.1 14 [id number] Univers 13:00:00 14:49:00 Visit Minnie Dyson 350.1.13.10 ity of [facility] 4.2.7.2.686 Bill as [id number] [facility] [address] [place] 2022-01-24 2022-01-24 Orders Doctor JOSE 1.2.840.114 [id number] Univers 00:00:00 00:00:00 Only Unassigned, VIKI 350.1.13.10 ity of [place] [facility] 4.2.7.2.686 Bill as [id number] [facility] [address] [place] 2021-12-22 2021-12-22 Outpatient [facility] [id number] Univers 14:30:00 15:49:57 TAMEKA peterson [facility] 2021-12-22 2021-12-22 [facility] 1.2.137.991 [id number] Univers 14:30:00 15:49:57 Visit Tameka YUAN 350.1.13.10 i ty [facility] [place] [id number] [facility] [address] [employer] 2021-12-22 2021-12-22 Outpatient [facility] [id number] Univers 14:30:00 15:49:57 TAMEKA kahlil [facility] 2021-12-09 2021-12-09 Outpatient R [facility] [id number] Univers 08:15:00 09:44:09 JOSE peterson [facility] 2021-12-09 2021-12-09 Office Shamar [facility] 1.2.840.114 [id number] Univers 08:15:00 09:44:09 Visit Jose YUAN 350.1.13.10 [place] ty [place] [address] 4[place].2.[place] [id number] Ak dicne NAL 188 [employer] 2021-12-05 2021-12-05 Emergency X Millie LEUNG [facility] ERT [id number] Univers 18:49:00 23:15:00 ity of [facility] 2021-12-05 2021-12-05 Emergency Millie Leung [facility] 1.2.840.114 [id number] Univers 18:49:00 23:15:00 Tiara YUAN 350.1.13.10 i ty of [place] [id number] [facility] [address] [place] 2021-11-30 2021-11-30 Telephone Sai [facility] 1.2.840.114 [id number] Univers 00:00:00 00:00:00 Tameka YUAN 350.1.13.10 i ty of [place] [id number] Ak dical NAL [address] [employer] 2021-11-30 2021-11-30 Transition JEREMIAS Nolen 1.2.840.114 [id number] Univers 00:00:00 00:00:00 of Care Maricruz CORBETT 350.1.13.10 it y of [place] [id number] [facility] [address] 2021-11-20 2021-11-29 [facility] Марина Fortune [facility] 1.2.840.11 [id number] Univers 09:59:00 18:30:00 Encounter Mohit Cuba 350.1.13.10 ity of [facility] 4.2.7.2.686 [facility] [id number] [facility] [address] 2021-11-20 2021-11-29 In[facility] [id number] Univers 09:59:00 18:30:00 MOHIT ity of [facility] 2021-11-24 2021-11-24 Surgery [facility] 1.2.559.878 [id number] Univers 10:50:00 14:14:00 Tameka YUAN 350.1.13.10 i ty [place] [id number] [facility] [address] 2021-11-22 2021-11-22 Surgery [facility] 1.2.992.870 [id number] Univers 11:22:00 12:11:00 Tameka YUAN 350.1.13.10 i ty of [place] [id number] [facility] [address] 2021-11-03 2021-11-03 [address] [facility] [id number] Univers 09:15:03 23:59:00 RASHI Garcia o f [facility] 2021-11-03 2021-11-03 [facility] 1.2.840.114 [id number] Univers 09:15:00 23:59:00 Encounter Rashi garcia 350.1.13.10 ity of [place] [id number] [facility] [address] 2021-11-03 2021-11-03 Orders Doctor JOSE 1.2.840.114 [id number] Univers 00:00:00 00:00:00 Only Unassigned, VIKI 350.1.13.10 ity of [place] [facility] 4.2.7.2.686 Bill as [id number] [facility] [address] Results Test Description Test Time Test Comments Results Result Comments Source POCT CREATININE 2022-07-27 19:39:11 Test Item Value Reference Range Interpretation Comme nts POCT Creatinine (test code = 4348330373) 1.2 mg/dL 0.6-1.3 Lab Interpretation (test code = 52653-6) [facility] [id number] 13:42:02 Test Item Value Reference Range Interpretation Comments ESR (test code = See_Comment H [Automated message] 86094-5) The system [employer] generated this result transmitted ref erence range: 0 - 10 m m/HR. The reference r pauly was not used to interpret this result as normal/abnor mal. Lab Interpretation (test Abnormal code = 75544-0) [facility] STIMULATING [id number] 13:23:56 Test Item Value Reference Range Interpretation Comments TSH (test code = See_Comment [Automated message] 1670233988) The system [employer] generated this result transmitted ref erence range: 0.45 - 4 .70 mIU/L. The refe rence range was not u sed to interpret this result as normal/abnor mal. Lab Interpretation (test Normal code = 05539-9) [facility] [id number] 13:10:52 Test Item Value Reference Range Interpretation Comments FREE T4 (test code = See_Comment [Autom ated message] 5857881145) The system [employer] generated this result transmitted ref erence range: 0.78 - 2 .20 ng/dL:. The ref erence range was not u sed to interpret this result as normal/abnor mal. Lab Interpretation (test Normal code = 93447-7) [facility] [id number] 13:10:12 Test Item Value Reference Range Interpretation Comments FREE T3 (test code = 9635918940) 3.68 pg/mL 2.77-5.27 Lab Interpretation (test code = Normal 78545-0) [facility] [id number] 13:02:53 Test Item Value Reference Range Interpretation Comments NT-proBNP (test code 108 pg/mL See_Comment [Autom ated = 7289193201) message] The system which generated this result transmitted reference range : <=450. The reference range was not used to interpret this result as normal/abnormal . KAITY (test code = KAITY) Biotin has been reported to cause a negative bias, interpret results relative to patient's use of biotin. Lab Interpretation Normal (test code = 57412-3) [facility]OSPH[facility]2022-09-28 12:52:52 Test Item Value Reference Range Interpretation Comments PHOSPHORUS (test code = 7795891427) 3.3 mg/dL 2.5-5 Lab Interpretation (test code = Normal 82415-8) [facility]IC [id number] 12:52:32 Test Item Value Reference Range Interpretation Comments URIC ACID (test code = 3109964201) 5.3 mg/dL 3.6-8 Lab Interpretation (test code = Normal 68102-8) [facility]ATINE [id number] 12:52:12 Test Item Value Reference Range Interpretation Comments CK (test code = 9027762212) 94 U/L 33-194 Lab Interpretation (test code = Normal 80974-7) [facility]OP[facility] [id number] 11:44:07 Test Item Value Reference Interpretation Comments Range TROPONIN I (test See_Comment [Automated code = 8760778674) message] The system which generated this result transmitted reference range : <=0.034. The reference range was not used to interpret this result as normal/abnormal . KAITY (test code = Reference (Normal) KAITY) Range (defined by the 99th percentile reference limit): <= 0.034 ng/mL Note: Cardiac troponin begins to rise 3-4 hours after the onset of ischemia. Repeat in 4-6 hours if the sample was drawn within 3-4 hours of the onset of the symptom and found normal. Diagnosis of myocardial injury is made with acute changes in cTn concentrations with at least one serial sample above the 99th percentile upper reference limit (URL), taken together with the patient's clinical presentation. Biotin has been reported to cause a negative bias, interpret results relative to patient's use of biotin. Lab Interpretation Normal (test code = 03766-3) [facility]aProthrombin Time / [id number] 11:39:50 Test Item Value Reference Range Interpretation Comments PROTIME PATIENT (test See_Comment [Auto mated message] code = 5964-2) The system wh ich generated this result transmitted ref erence range: 12.0 - 1 4.7 Seconds. The re ference range was not u sed to interpret this result as normal/abnor mal. INR (test code = 6301-6) Nor mal INR <1.1; Warfarin Therap eutic range 2.0 to 3. 0 or 2.5 to 3.5, dep ending upon the indica tions. Lab Interpretation (test Normal code = 32443-3) [facility]. METABOLIC PANEL (31458)2022-03-15 11:32:26 Test Item Value Reference Range Interpretation Comments NA (test code = 141 mmol/L 135-145 2418497554) K (test code = 4.0 mmol/L 3.5-5 8682619155) CL (test code = 106 mmol/L 98-108 5831282295) CO2 TOTAL (test code = 24 mmol/L 23-31 9543567545) AGAP (test code = 2-16 2835609036) BUN (test code = 13 mg/dL 7-23 5994155278) GLUCOSE (test code = 118 mg/dL 70-110 H 6912081572) CREATININE (test code = 0.91 mg/dL 0.6-1.25 8109300914) TOTAL BILI (test code = 0.2 mg/dL 0.1-1.5 4476282513) CALCIUM (test code = 9.1 mg/dL 8.6-10.6 8462730408) T PROTEIN (test code = 7.9 g/dL 6.3-8.2 3819720381) ALBUMIN (test code = 4.6 g/dL 3.5-5 8084110608) ALK PHOS (test code = 103 U/L 34-122 3517811918) ALTv (test code = 19 U/L 5-50 1742-6) AST(SGOT) (test code = 23 U/L 13-40 2510640594) eGFR (test code = mL/min/1.73m2 6195002756) KAITY (test code = KAITY) Association of Glomerular Filtration Rate (GFR) and Staging of Kidney Disease* + --+ --+ ------+| GFR (mL/min/1.73 m2) ?| With Kidney Damage ?| ?Without Kidney Damage+ --------+ --------+ +| ?>90 ?| ?Stage one ?| ? Normal ?+ ---+ ---+ -------+| ?60-89 ?| ?Stage two ?| ? Decreased GFR ? + --+ --+ ------+| ?30-59 ?| ?Stage three ?| ? Stage three ? + --+ --+ ------+| ?15-29 ?| ?Stage four ? | ? Stage four ?+ ---+ ---+ -------+| ?<15 (or dialysis) ? ?| ?Stage five ? | ? Stage five ?+ ---+ ---+ -------+ *Each stage assumes the associated GFR level has been in effect for at least three months. ?Stages 1 to 5, with or without kidney disease, indicate chronic kidney disease. Notes: Determination of stages one and two (with eGFR >59mL/min/1.73 m2) requires estimation of kidney damage for at least three months as defined by structural or functional abnormalities of the kidney, manifested by either:Pathological abnormalities or Markers of kidney damage (including abnormalities in the composition of the blood or urine or abnormalities in imaging tests). Lab Interpretation Abnormal (test code = 07170-5) [facility]2022-09-28 11:32:26 Test Item Value Reference Range Interpretation Comments MAGNESIUM (test code = 5554276129) 1.9 mg/dL 1.7-2.4 Lab Interpretation (test code = Normal 92288-6) [facility] WITH [id number] 11:20:07 Test Item Value Reference Range Interpretation Comments WBC (test code = See_Comment [Automated 2253-2) message] The sy stem which generated this result transmitted reference range : 4.20 - 10.70 10*3/?L. The reference range was not used to interpret this result as normal/abnormal . RBC (test code = See_Comment [Automated 598-4) message] The sy stem which generated this result transmitted reference range : 4.26 - 5.52 10*6/?L. The reference range was not used to interpret this result as normal/abnormal . HGB (test code = 13.5 g/dL 12.2-16.4 718-7) HCT (test code = 39.9 % 38.4-49.3 4544-3) MCV (test code = 83.0 fL 81.7-95.6 787-2) MCH (test code = 28.1 pg 26.1-32.7 785-6) MCHC (test code = 33.8 g/dL 31.2-35 786-4) RDW-SD (test code = 47.5 fL 38.5-51.6 74592-4) RDW-CV (test code = 16.0 % 12.1-15.4 H 788-0) PLT (test code = See_Comment [Automated 777-3) message] The sy stem which generated this result transmitted reference range : 150 - 328 10*3/ ?L. The reference r pauly was not used to interpret this result as normal/abnormal . MPV (test code = 10.1 fL 9.8-13 97134-0) NRBC/100 WBC (test See_Comment [Automat ed code = 9583037387) message] The system which generated this result transmitted reference range : 0.0 - 10.0 /100 WBCs. The refer ence range was not u sed to interpret th is result as normal/abnormal . NRBC x10^3 (test code See_Comment [Auto mated = 2869859612) message] The s ystem which generated this result transmitted reference range : 10*3/?L. The reference range was not used to interpret this result as normal/abnormal . GRAN MAT (NEUT) % 67.5 % (test code = 770-8) IMM GRAN % (test code 0.30 % = 6602701240) LYMPH % (test code = 24.4 % 736-9) MONO % (test code = 6.0 % 5905-5) EOS % (test code = 1.2 % 713-8) BASO % (test code = 0.6 % 706-2) GRAN MAT x10^3(ANC) 4.66 10*3/uL 1.99-6.95 (test code = 9055045122) IMM GRAN x10^3 (test 0-0.06 code = 8676454872) LYMPH x10^3 (test code 1.68 10*3/uL 1.09-3.23 = 731-0) MONO x10^3 (test code 0.41 10*3/uL 0.36-1.02 = 742-7) EOS x10^3 (test code = 0.08 10*3/uL 0.06-0.53 711-2) BASO x10^3 (test code 0.04 10*3/uL 0.01-0.09 = 704-7) Lab Interpretation Abnormal (test code = 47801-9) [facility], [facility], WITHOUT [id number] 07:45:00 Reason for exam:->StrokeWhat is the patient's sedation requirement?->No SedationFINAL REPORT MRI Brain without contrast Clinical History: Stroke Technique: MRIof the brain utilizing axial T2, FLAIR, GRE, DWI; sagittal and coronal T1-weighted images. Comparisons: CT 07/13/2017 Findings: There is no evidence of acute infarct or hemorrhage. 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 There is mild to moderate periventricular and subcortical white matter T2 hyperintensity, which is nonspecific but compatible with chronic microvascular ischemic change. Thereis generalized parenchymal volume loss without hydrocephalus, midline [...] with generalized parenchymal volume loss. Signed: [place] MDReport Verified Date/Time: 07/15/2017 07:45:58 Reading Location: [address] Neuro Reading Room BASIC METABOLIC [id number] 04:59:00 Test Item Value Reference Range Interpretation Comments SODIUM (BEAKER) 138 meq/L 136-145 (test code = 381) POTASSIUM (BEAKER) 4.0 meq/L 3.5-5.1 (test code = 379) CHLORIDE (BEAKER) 104 meq/L 98-107 (test code = 382) CO2 (BEAKER) (test 25 meq/L 22-29 code = 355) BLOOD UREA NITROGEN 15 mg/dL 7-21 (BEAKER) (test code = 354) CREATININE (BEAKER) 0.99 mg/dL 0.57-1.25 (test code = 358) GLUCOSE RANDOM 111 mg/dL 70-105 H (BEAKER) (test code = 652) CALCIUM (BEAKER) 9.3 mg/dL 8.4-10.2 (test code = 697) EGFR (BEAKER) (test mL/min/1.73 INSUFFIC IENT CLINICAL code = 1092) sq m DATA TO CALCULA TE ESTIMATED GFR. CBC W/PLT COUNT & AUTO [id number] 04:37:00 Test Item Value Reference Range Interpretation Comments WHITE BLOOD CELL COUNT (BEAKER) 5.9 K/ L 3.5-10.5 (test code = 775) RED BLOOD CELL COUNT (BEAKER) 4.99 M/ L 4.63-6.08 (test code = 761) HEMOGLOBIN (BEAKER) (test code = 14.0 GM/DL 13.7-17.5 410) HEMATOCRIT (BEAKER) (test code = 42.2 % 40.1-51.0 411) MEAN CORPUSCULAR VOLUME (BEAKER) 84.6 fL 79.0-92.2 (test code = 753) MEAN CORPUSCULAR HEMOGLOBIN 28.1 pg 25.7-32.2 (BEAKER) (test code = 751) MEAN CORPUSCULAR HEMOGLOBIN CONC 33.2 GM/DL 32.3-36.5 (BEAKER) (test code = 752) RED CELL DISTRIBUTION WIDTH 13.6 % 11.6-14.4 (BEAKER) (test code = 412) PLATELET COUNT (BEAKER) (test 235 K/CU MM 150-450 code = 756) MEAN PLATELET VOLUME (BEAKER) 10.0 fL 9.4-12.4 (test code = 754) NUCLEATED RED BLOOD CELLS 0 /100 WBC 0-0 (BEAKER) (test code = 413) NEUTROPHILS RELATIVE PERCENT 49 % (BEAKER) (test code = 429) LYMPHOCYTES RELATIVE PERCENT 36 % (BEAKER) (test code = 430) MONOCYTES RELATIVE PERCENT 8 % (BEAKER) (test code = 431) EOSINOPHILS RELATIVE PERCENT 6 % (BEAKER) (test code = 432) BASOPHILS RELATIVE PERCENT 1 % (BEAKER) (test code = 437) NEUTROPHILS ABSOLUTE COUNT 2.89 K/ L 1.78-5.38 (BEAKER) (test code = 670) LYMPHOCYTES ABSOLUTE COUNT 2.13 K/ L 1.32-3.57 (BEAKER) (test code = 414) MONOCYTES ABSOLUTE COUNT (BEAKER) 0.47 K/ L 0.30-0.82 (test code = 415) EOSINOPHILS ABSOLUTE COUNT 0.37 K/ L 0.04-0.54 (BEAKER) (test code = 416) BASOPHILS ABSOLUTE COUNT (BEAKER) 0.05 K/ L 0.01-0.08 (test code = 417) IMMATURE GRANULOCYTES-RELATIVE 0 % 0-1 PERCENT (BEAKER) (test code = 2801) MR, MRA, BRAIN, WITHOUT [id number] 13:30:00Reason for exam:- >StrokeWhat is the patient's sedation requirement?->No SedationFINAL REPORT MRA Head CLINICAL HISTORY: Stroke TECHNIQUE: MRA of the head utilizing 3-D [id number]-dg-[id number] technique, with 3-D reconstructions. COMPARISON: None FINDINGS: There is no evidence of intracranial aneurysm, critical stenosis, or major branch vessel occlusion. IMPRESSION: Noevidence for a major [place] proximal branch vessel occlusion. MRA Neck CLINICAL HISTORY: Stroke TECHNIQUE: MRA of the neck utilizing 2-D and 3-D crcr-ml-[id number] technique, with 3-D reconstructions. COMPARISON: None FINDINGS: The carotid arteries in the neck are patent including their bifurcations. There is antegrade flow in the vertebral arteries in the neck. IMPRESSION: No evidence of hemody namically significant stenosis in the cervical carotid or vertebral arteries by NASCET criteria. Signed: Malaika Beach MDReport Verified Date/Time: 07/14/2017 13:30:39 Reading Location: [address] Neuro Reading Room MR, MRA, NECK, WITHOUT IV [id number] 13:30:00FINAL REPORT MRA Head CLINICAL HISTORY: Stroke TECHNIQUE: MRA of the head utilizing 3-D oinw-vq-akwitn technique, with 3-D reconstructions. COMPARISON: None FINDINGS: There is no ev idence of intracranial aneurysm, critical stenosis, or major branch vessel occlusion. IMPRESSION: Noevidence for a major [place] proximal branch vessel occlusion. MRA Neck CLINICAL HISTORY: Stroke TECHNIQUE: MRA of the neck utilizing 2-D and 3-D diau-ul-bfzbnp technique, with 3-D reconstructions. COMPARISON: None FINDINGS: The carotid arteries in the neck are patent including their bifurcations. There is antegrade flow in the vertebral arteries in the neck. IMPRESSION: No evidence of hemodynamically significant stenosis in the cervical carotid or vertebral arteries by NASCET criteria. Signed: Malaika Beach MDReport Verified Date/Time: 07/14/2017 13:30:39 Reading Location: [facility] [id number] Neuro Reading Room [facility] METABOLIC [id number] 04:42:00 Test Item Value Reference Range Interpretation Comments SODIUM (BEAKER) 136 meq/L 136-145 (test code = 381) POTASSIUM (BEAKER) 3.8 meq/L 3.5-5.1 (test code = 379) CHLORIDE (BEAKER) 105 meq/L 98-107 (test code = 382) CO2 (BEAKER) (test 24 meq/L 22-29 code = 355) BLOOD UREA NITROGEN 12 mg/dL 7-21 (BEAKER) (test code = 354) CREATININE (BEAKER) 1.00 mg/dL 0.57-1.25 (test code = 358) GLUCOSE RANDOM 105 mg/dL 70-105 (BEAKER) (test code = 652) CALCIUM (BEAKER) 9.0 mg/dL 8.4-10.2 (test code = 697) EGFR (BEAKER) (test mL/min/1.73 INSUFFIC IENT CLINICAL code = 1092) sq m DATA TO CALCULA TE ESTIMATED GFR. CBC W/PLT COUNT & AUTO [id number] 04:00:00 Test Item Value Reference Range Interpretation Comments WHITE BLOOD CELL COUNT (BEAKER) 5.6 K/ L 3.5-10.5 (test code = 775) RED BLOOD CELL COUNT (BEAKER) 4.94 M/ L 4.63-6.08 (test code = 761) HEMOGLOBIN (BEAKER) (test code = 13.9 GM/DL 13.7-17.5 410) HEMATOCRIT (BEAKER) (test code = 41.3 % 40.1-51.0 411) MEAN CORPUSCULAR VOLUME (BEAKER) 83.6 fL 79.0-92.2 (test code = 753) MEAN CORPUSCULAR HEMOGLOBIN 28.1 pg 25.7-32.2 (BEAKER) (test code = 751) MEAN CORPUSCULAR HEMOGLOBIN CONC 33.7 GM/DL 32.3-36.5 (BEAKER) (test code = 752) RED CELL DISTRIBUTION WIDTH 13.5 % 11.6-14.4 (BEAKER) (test code = 412) PLATELET COUNT (BEAKER) (test 222 K/CU MM 150-450 code = 756) MEAN PLATELET VOLUME (BEAKER) 10.1 fL 9.4-12.4 (test code = 754) NUCLEATED RED BLOOD CELLS 0 /100 WBC 0-0 (BEAKER) (test code = 413) NEUTROPHILS RELATIVE PERCENT 48 % (BEAKER) (test code = 429) LYMPHOCYTES RELATIVE PERCENT 39 % (BEAKER) (test code = 430) MONOCYTES RELATIVE PERCENT 8 % (BEAKER) (test code = 431) EOSINOPHILS RELATIVE PERCENT 4 % (BEAKER) (test code = 432) BASOPHILS RELATIVE PERCENT 1 % (BEAKER) (test code = 437) NEUTROPHILS ABSOLUTE COUNT 2.71 K/ L 1.78-5.38 (BEAKER) (test code = 670) LYMPHOCYTES ABSOLUTE COUNT 2.16 K/ L 1.32-3.57 (BEAKER) (test code = 414) MONOCYTES ABSOLUTE COUNT (BEAKER) 0.45 K/ L 0.30-0.82 (test code = 415) EOSINOPHILS ABSOLUTE COUNT 0.21 K/ L 0.04-0.54 (BEAKER) (test code = 416) BASOPHILS ABSOLUTE COUNT (BEAKER) 0.05 K/ L 0.01-0.08 (test code = 417) IMMATURE GRANULOCYTES-RELATIVE 0 % 0-1 PERCENT (BEAKER) (test code = 2801) CT BRAIN WITHOUT IV CONTRAST - [id number] 20:35:00Reason for exam:- >24h post tPAFINAL REPORT CT head without contrast INDICATION: 24 hours post tPA. TECHNIQUE:Axial noncontrast CT images through the head were obtained. This exam was performed according to ourdepartmental dose optimization program which includes automated exposure [...] chronic and involutional findings as discussed. Signed: Isis Batres MDReport Verified Date/Time: 07/13/2017 20:35:58 Reading Location: [facility] Radiology Reading Room [id number] 18:14:00 Test Item Value Reference Range Interpretation Comments RPR SCREEN (BEAKER) (test code = Nonreactive Nonreactive 420) HEMOGLOBIN [id number] 11:35:00 Test Item Value Reference Range Interpretation Comments HEMOGLOBIN A1C (BEAKER) (test code = 5.7 % 4.3-6.1 368) FastingCBC W/PLT COUNT & AUTO [id number] 05:59:00 Test Item Value Reference Range Interpretation Comments WHITE BLOOD CELL COUNT (BEAKER) 7.9 K/ L 3.5-10.5 (test code = 775) RED BLOOD CELL COUNT (BEAKER) 4.86 M/ L 4.63-6.08 (test code = 761) HEMOGLOBIN (BEAKER) (test code = 13.5 GM/DL 13.7-17.5 L 410) HEMATOCRIT (BEAKER) (test code = 40.7 % 40.1-51.0 411) MEAN CORPUSCULAR VOLUME (BEAKER) 83.7 fL 79.0-92.2 (test code = 753) MEAN CORPUSCULAR HEMOGLOBIN 27.8 pg 25.7-32.2 (BEAKER) (test code = 751) MEAN CORPUSCULAR HEMOGLOBIN CONC 33.2 GM/DL 32.3-36.5 (BEAKER) (test code = 752) RED CELL DISTRIBUTION WIDTH 13.5 % 11.6-14.4 (BEAKER) (test code = 412) PLATELET COUNT (BEAKER) (test 222 K/CU MM 150-450 code = 756) MEAN PLATELET VOLUME (BEAKER) 10.2 fL 9.4-12.4 (test code = 754) NUCLEATED RED BLOOD CELLS 0 /100 WBC 0-0 (BEAKER) (test code = 413) NEUTROPHILS RELATIVE PERCENT 81 % (BEAKER) (test code = 429) LYMPHOCYTES RELATIVE PERCENT 13 % (BEAKER) (test code = 430) MONOCYTES RELATIVE PERCENT 5 % (BEAKER) (test code = 431) EOSINOPHILS RELATIVE PERCENT 1 % (BEAKER) (test code = 432) BASOPHILS RELATIVE PERCENT 0 % (BEAKER) (test code = 437) NEUTROPHILS ABSOLUTE COUNT 6.34 K/ L 1.78-5.38 H (BEAKER) (test code = 670) LYMPHOCYTES ABSOLUTE COUNT 1.00 K/ L 1.32-3.57 L (BEAKER) (test code = 414) MONOCYTES ABSOLUTE COUNT (BEAKER) 0.42 K/ L 0.30-0.82 (test code = 415) EOSINOPHILS ABSOLUTE COUNT 0.06 K/ L 0.04-0.54 (BEAKER) (test code = 416) BASOPHILS ABSOLUTE COUNT (BEAKER) 0.03 K/ L 0.01-0.08 (test code = 417) IMMATURE GRANULOCYTES-RELATIVE 0 % 0-1 PERCENT (BEAKER) (test code = 2801) VITAMIN B12 AND [id number] 05:24:00 Test Item Value Reference Range Interpretation Comments VITAMIN B12 (BEAKER) (test code = 391 pg/mL 213-816 774) FOLATE (BEAKER) (test code = 362) 15.4 ng/mL >=7.0 BASIC METABOLIC [id number] 05:07:00 Test Item Value Reference Range Interpretation Comments SODIUM (BEAKER) 133 meq/L 136-145 L (test code = 381) POTASSIUM (BEAKER) 3.9 meq/L 3.5-5.1 (test code = 379) CHLORIDE (BEAKER) 103 meq/L 98-107 (test code = 382) CO2 (BEAKER) (test 22 meq/L 22-29 code = 355) BLOOD UREA NITROGEN 11 mg/dL 7-21 (BEAKER) (test code = 354) CREATININE (BEAKER) 1.02 mg/dL 0.57-1.25 (test code = 358) GLUCOSE RANDOM 129 mg/dL 70-105 H (BEAKER) (test code = 652) CALCIUM (BEAKER) 8.7 mg/dL 8.4-10.2 (test code = 697) EGFR (BEAKER) (test mL/min/1.73 INSUFFIC IENT CLINICAL code = 1092) sq m DATA TO CALCULA TE ESTIMATED GFR. FastingLIPID [id number] 05:01:00 Test Item Value Reference Range Interpretation Comments TRIGLYCERIDES (BEAKER) (test code = 150 mg/dL 540) CHOLESTEROL (BEAKER) (test code = 201 mg/dL 631) HDL CHOLESTEROL (BEAKER) (test code 36 mg/dL = 976) LDL CHOLESTEROL CALCULATED (BEAKER) 135 mg/dL (test code = 633) Triglyceride Reference Range: Low Risk <150 Borderline 150-199 High Risk 200- 499 Very High Risk >=500Cholesterol Reference Range: Low Risk <200 Borderline 200-239 High Risk >240HDL Cholesterol Reference Range: Low Risk >=60 High Risk <40LDL Cholesterol Reference Range: Optimal <100 Near Optimal 100-129 Borderline 130-159 High 160-189 Very High >=190 Fasting TROPONIN [id number] 04:55:00 Test Item Value Reference Range Interpretation Comments TROPONIN I (BEAKER) (test code = 0.01 ng/mL 0.00-0.03 397) Troponin I (TnI) levels must be interpreted [...] acidosis, acute neurological disease, and persistent tachyarrhythmia.FastingTROPONIN [id number] 23:16:00 Test Item Value Reference Range Interpretation Comments TROPONIN I (BEAKER) (test code = 0.02 ng/mL 0.00-0.03 397) Troponin I (TnI) levels must be interpreted [...] acidosis, acute neurological disease, and persistent tachyarrhythmia.TROPONIN [id number] 15:14:00 Test Item Value Reference Range Interpretation Comments TROPONIN I (BEAKER) (test code = 0.01 ng/mL 0.00-0.03 397) Troponin I (TnI) levels must be interpreted [...] acute neurological disease, and persistent tachyarrhythmia.BASIC METABOLIC [id number] 15:11:00 Test Item Value Reference Range Interpretation Comments SODIUM (BEAKER) 136 meq/L 136-145 (test code = 381) POTASSIUM (BEAKER) 4.3 meq/L 3.5-5.1 (test code = 379) CHLORIDE (BEAKER) 102 meq/L 98-107 (test code = 382) CO2 (BEAKER) (test 27 meq/L 22-29 code = 355) BLOOD UREA NITROGEN 10 mg/dL 7-21 (BEAKER) (test code = 354) CREATININE (BEAKER) 0.95 mg/dL 0.57-1.25 (test code = 358) GLUCOSE RANDOM 104 mg/dL 70-105 (BEAKER) (test code = 652) CALCIUM (BEAKER) 8.9 mg/dL 8.4-10.2 (test code = 697) EGFR (BEAKER) (test mL/min/1.73 INSUFFIC IENT CLINICAL code = 1092) sq m DATA TO CALCULA TE ESTIMATED GFR. HEPATIC FUNCTION [id number] 15:08:00 Test Item Value Reference Range Interpretation Comments TOTAL PROTEIN (BEAKER) (test code = 8.0 gm/dL 6.0-8.3 770) ALBUMIN (BEAKER) (test code = 1145) 4.1 g/dL 3.5-5.0 BILIRUBIN TOTAL (BEAKER) (test code 0.6 mg/dL 0.2-1.2 = 377) BILIRUBIN DIRECT (BEAKER) (test 0.2 mg/dL 0.1-0.5 code = 706) ALKALINE PHOSPHATASE (BEAKER) (test 90 U/L 40-150 code = 346) AST (SGOT) (BEAKER) (test code = 36 U/L 5-34 H 353) ALT (SGPT) (BEAKER) (test code = 43 U/L 6-55 347) [id number] 14:44:00 Test Item Value Reference Range Interpretation Comments PARTIAL THROMBOPLASTIN TIME 31.5 seconds 22.5-36.0 (BEAKER) (test code = 760) PROTHROMBIN TIME/[id number] 14:43:00 Test Item Value Reference Range Interpretation Comments PROTIME (BEAKER) (test code = 16.7 seconds 11.7-14.7 H 759) INR (BEAKER) (test code = 370) 1.4 <=5.9 RECOMMENDED COUMADIN/WARFARIN INR THERAPY RANGESSTANDARD DOSE: 2.0 - 3.0 Includes: PROPHYLAXIS for venous thrombosis, systemic embolization; TREATMENT for venous thrombosis and/or pulmonary embolus.HIGH RISK: Target INR is 2.5-3.5 for patients with mechanical heart valves.CBC W/PLT COUNT & AUTO [id number] 14:41:00 Test Item Value Reference Range Interpretation Comments WHITE BLOOD CELL COUNT (BEAKER) 7.1 K/ L 3.5-10.5 (test code = 775) RED BLOOD CELL COUNT (BEAKER) 4.79 M/ L 4.63-6.08 (test code = 761) HEMOGLOBIN (BEAKER) (test code = 13.8 GM/DL 13.7-17.5 410) HEMATOCRIT (BEAKER) (test code = 40.3 % 40.1-51.0 411) MEAN CORPUSCULAR VOLUME (BEAKER) 84.1 fL 79.0-92.2 (test code = 753) MEAN CORPUSCULAR HEMOGLOBIN 28.8 pg 25.7-32.2 (BEAKER) (test code = 751) MEAN CORPUSCULAR HEMOGLOBIN CONC 34.2 GM/DL 32.3-36.5 (BEAKER) (test code = 752) RED CELL DISTRIBUTION WIDTH 13.6 % 11.6-14.4 (BEAKER) (test code = 412) PLATELET COUNT (BEAKER) (test 220 K/CU MM 150-450 code = 756) MEAN PLATELET VOLUME (BEAKER) 10.0 fL 9.4-12.4 (test code = 754) NUCLEATED RED BLOOD CELLS 0 /100 WBC 0-0 (BEAKER) (test code = 413) NEUTROPHILS RELATIVE PERCENT 75 % (BEAKER) (test code = 429) LYMPHOCYTES RELATIVE PERCENT 18 % (BEAKER) (test code = 430) MONOCYTES RELATIVE PERCENT 5 % (BEAKER) (test code = 431) EOSINOPHILS RELATIVE PERCENT 1 % (BEAKER) (test code = 432) BASOPHILS RELATIVE PERCENT 1 % (BEAKER) (test code = 437) NEUTROPHILS ABSOLUTE COUNT 5.29 K/ L 1.78-5.38 (BEAKER) (test code = 670) LYMPHOCYTES ABSOLUTE COUNT 1.29 K/ L 1.32-3.57 L (BEAKER) (test code = 414) MONOCYTES ABSOLUTE COUNT (BEAKER) 0.38 K/ L 0.30-0.82 (test code = 415) EOSINOPHILS ABSOLUTE COUNT 0.06 K/ L 0.04-0.54 (BEAKER) (test code = 416) BASOPHILS ABSOLUTE COUNT (BEAKER) 0.05 K/ L 0.01-0.08 (test code = 417) IMMATURE GRANULOCYTES-RELATIVE 0 % 0-1 PERCENT (BEAKER) (test code = 7579)"
[2023-04-03 23:12] LABS: Absolute Lymphocytes (CBC) 2.9 K/uL (0.7-4.9); Hematocrit 35.1 % (39.6-49.0); Lymphocytes % 40.2 % (15.3-44.8); MCV 79.5 fL (80-100); MPV 8.3 fL (7.6-11.3); Platelets 206 thou/uL (152-406); RBC Red Blood Cell Count 4.42 M/uL (4.33-5.43)
[2023-04-03 23:26] LABS: Potassium 3.3 mEq/L (3.5-5.1); Troponin High Sensitivity 9.3 pg/mL (<58.9)
--- NOTE | 2023-04-04 01:17 | ER ---
Nurse's Notes [facility] Name: Estiven Pena Age: 78 yrs Sex: Male : 1945 Arrival Date: 04/03/2023 Time: 22:24 Bed 20 Private MD: Diagnosis: Transient cerebral ischemic attack, unspecified Presentation: 04/03 22:43 Chief complaint: Patient states: he was driving home from work when he started having ap3 right hand numbness. patient arrived to the ED with difficulty forming words. patient states that he gets off of work at 10pm. Coronavirus screen: At this time, the client does not indicate any symptoms associated with coronavirus-19. Ebola Screen: No symptoms or risks identified at this time. Initial Sepsis Screen: Does the patient meet any 2 criteria? Yes Does the patient have a suspected source of infection? No. Patient's initial sepsis screen is negative. Risk Assessment: Do you want to hurt yourself or someone else? Patient reports no desire to harm self or others. Onset of symptoms was April 03, 2023 at 22:00. 22:43 Method Of Arrival: Ambulatory ap3 22:43 Acuity: ZANA 2 ap3 Triage Assessment: 22:45 General: Appears distressed, Behavior is anxious. Neuro: Level of Consciousness is ap3 awake, alert, obeys commands, Oriented to person, place, time, situation, Reports numbness in left hand. Respiratory: Airway is patent Respiratory effort is even, unlabored, Respiratory pattern is regular, symmetrical. Historical: - Allergies: 22:45 NKDA; ap3 - Home Meds: 22:44 Eliquis oral [Active]; ap3 Screenin:43 [facility] ED Fall Risk Assessment (Adult) History of falling in the last 3 months, jb4 including since admission No falls in past 3 months (0 pts) Confusion or Disorientation No (0 pts). Abuse screen: Denies threats or abuse. Nutritional screening: No deficits noted. Tuberculosis screening: No symptoms or risk factors identified. Assessment: 22:43 General: Appears in no apparent distress. comfortable, Behavior is calm, cooperative, jb4 appropriate for age. Pain: Denies pain. Neuro: Level of Consciousness is awake, alert, obeys commands, Oriented to person, place, time, situation, Artificial Teeth Inspector are equal bilaterally Moves all extremities. Full function Gait is steady, Speech is normal, Facial symmetry appears normal, Pupils are PERRLA, Intact. Cardiovascular: Patient's skin is warm and dry. Respiratory: Reports. GI: No signs and/or symptoms were reported involving the gastrointestinal system. : No signs and/or symptoms were reported regarding the genitourinary system. EENT: No signs and/or symptoms were reported regarding the EENT system. Derm: Skin is intact, Skin is pink, warm \T\ dry. Musculoskeletal: Circulation, motion, and sensation intact. Range of motion: intact in all extremities. 04/04 00:18 Reassessment: Patient appears in no apparent distress at this time. Patient and/or jb4 family updated on plan of care and expected duration. Pain level reassessed. Patient is alert, oriented x 3, equal unlabored respirations, skin warm/dry/pink. 01:00 Reassessment: Patient appears in no apparent distress at this time. Patient and/or jb4 family updated on plan of care and expected duration. Pain level reassessed. Patient is alert, oriented x 3, equal unlabored respirations, skin warm/dry/pink. 02:00 Reassessment: Pt is sleeping in bed with no s/s of pain or distress noted. jb4 03:00 Reassessment: Patient appears in no apparent distress at this time. No changes from jb4 previously documented assessment. Patient and/or family updated on plan of care and expected duration. Pain level reassessed. Vital Signs: 04/03 22:43 BP 185 / 81; Pulse 72; Resp 16; Pulse Ox 99% on R/A; jb4 04/04 00:18 BP 155 / 75; Pulse 58; Resp 17; Pulse Ox 97% ; jb4 01:15 BP 152 / 75; Pulse 59; Resp 16; Pulse Ox 99% on R/A; jb4 02:15 BP 140 / 69; Pulse 55; Resp 16; Pulse Ox 98% on R/A; jb4 03:15 BP 134 / 78; Pulse 55; Resp 16; Pulse Ox 97% on R/A; jb4 04:15 BP 151 / 79; Pulse 57; Resp 17; Pulse Ox 98% ; jj7 NIH Stroke Scale Scores: 04/03 22:43 NIHSS Score: 0 jb4 ED Course: 22:28 Patient arrived in ED. jb4 22:31 Asif Julian MD is Attending Physician. ec2 22:40 Inserted saline lock: 18 gauge in left antecubital area, using aseptic technique. Blood as6 collected. 22:40 Arm band placed on. as6 22:43 Patient has correct armband on for positive identification. Placed in gown. Bed in low jb4 position. Call light in reach. Side rails up X 1. Client placed on continuous cardiac and pulse oximetry monitoring. NIBP monitoring applied. quality assurance monitor on. 22:44 Triage completed. ap3 22:44 Ct Stroke Brain Wo Cont In Process Unspecified. EDMS 23:01 XRAY Chest (1 view) In Process Unspecified. EDMS 04/04 00:16 Iglesia Kunz, BANDAR is Primary Nurse. jb4 01:15 Asif Julian MD is Hospitalizing Provider. ec2 01:16 Nelson Morgan is Hospitalizing Provider. ec2 06:30 No provider procedures requiring assistance completed. Patient admitted, IV remains in [facility] place. Administered Medications: No medications were administered Medication: 06:30 VIS not applicable for this client. [facility] Outcome: 01:16 Decision to Hospitalize by Provider. ec2 06:30 Admitted to ICU accompanied by nurse, room 1. PT IS OVERFLOW FROM MS, Report called to [facility] JESSE HOBBS 06:30 Condition: improved j7 07:11 Patient left the ED. j7 NIH Stroke Scale - NIH Stroke Score Date: 04/03/2023 Time: 22:43 Total Score = 0 10. Dysarthria (speech clarity - read or repeat words) - 0(Normal) 11. Extinction and Inattention (visual/tactile/auditory/spatial/personal) - 0(No abnormality) 1a. Level of Consciousness (LOC) - 0(Alert) 1b. Level of Consciousness (LOC) (Month \T\ Age) - 0(Both) 1c. LOC Commands (Open \T\ Closes Eyes/Furniture Upholsterer Apprentice) - 0(Both) 2. Best Gaze (Lateral Gaze Paresis) - 0(Normal) 3. Visual Field Loss - 0(No visual loss) 4. Facial Palsy - 0(Normal) 5a. Left Arm: Motor (10-second hold) - 0(No drift) 5b. Right Arm: Motor (10-second hold) - 0(No drift) 6a. Left Leg: Motor (5-second hold - always test supine) - 0(No drift) 6b. Right Leg: Motor (5-second hold - always test supine) - 0(No drift) 7. Limb Ataxia (finger/nose \T\ heel/biggs - test with eyes open) - 0(Absent) 8. Sensory Loss (pinprick arms/legs/face) - 0(Normal) 9. Best Language: Aphasia (description/naming/reading) - 0(No aphasia) Initials: jb4 Signatures: Dispatcher [employer] EDIglesia Charlton RN RN jb4 Lucina Pendleton RN RN ap3 Marcos Anderson RN RN as6 Edu Thorne RN RN jj7 Asif Julian MD MD ec2 Corrections: (The following items were deleted from the chart) 04/03 22:45 22:45 PMHx: TIA; ap3 ap3 22:45 22:45 PMHx: Hypertension; ap3 ap3 22:45 22:45 PMHx: High Cholesterol; ap3 ap3 22:45 22:45 PMHx: GERD; ap3 ap3 22:45 22:45 PMHx: Anxiety; ap3 ap3
--- NOTE | 2023-04-04 01:17 | EDPHYS ---
Physician Documentation [facility] Name: Estiven Pena Age: 78 yrs Sex: Male : 1945 Arrival Date: 04/03/2023 Time: 22:24 Bed 20 Private MD: ED Physician Asif Julian HPI: 04/03 22:46 This 78 yrs old Male presents to ER via Ambulatory with complaints of concern ec2 for word finding issues. 22:46 Patient arrives today with a last known well of 10 PM, concern for word finding ec2 difficulties and confusion. Patient states that the confusion has since improved and that his word finding difficulties have since improved as well. Patient reports no recent falls or trauma, states that he is on Eliquis. Patient reports previous stroke with no known deficits. Patient reports no fevers or chills, no nausea or vomiting. States that he does feel generally shaky however this is not focal.. Historical: - Allergies: 22:45 NKDA; ap3 - Home Meds: 22:44 Eliquis oral [Active]; ap3 ROS: 22:46 Constitutional: word finding issues ec2 Exam: 22:46 Constitutional: GEN: NAD Head: atraumatic Eyes: EOMI Ears: External ears are ec2 normal. CV: regular rate LUNGS: no respiratory distress ABD: non-distended SKIN: no evidence of rashes MSK: no evidence of trauma NEURO: Cranial nerves II through XII intact, gait intact, strength intact in all 4 extremities, with speech is clear without dysarthria and fluent, [id number]-[id number] appropriate, sensation intact throughout all extremities. Vital Signs: 22:43 BP 185 / 81; Pulse 72; Resp 16; Pulse Ox 99% on R/A; jb4 04/04 00:18 BP 155 / 75; Pulse 58; Resp 17; Pulse Ox 97% ; jb4 01:15 BP 152 / 75; Pulse 59; Resp 16; Pulse Ox 99% on R/A; jb4 02:15 BP 140 / 69; Pulse 55; Resp 16; Pulse Ox 98% on R/A; jb4 03:15 BP 134 / 78; Pulse 55; Resp 16; Pulse Ox 97% on R/A; jb4 04:15 BP 151 / 79; Pulse 57; Resp 17; Pulse Ox 98% ; jj7 NIH Stroke Scale Scores: 04/03 22:43 NIHSS Score: 0 jb4 MDM: 22:31 Patient medically screened. ec2 22:46 Data reviewed: vital signs. ED course: Patient arrives today due to concern for word ec2 finding difficulties as well as confusion. Examination remarkable for neuro intact individual with fluent speech without dysarthria. We will obtain a stroke work-up, evaluate lab work, currently considering process such as electrolyte disturbances, renal dysfunction, TIA, urinary tract infection. EKG dependently reviewed and interpreted by me, shows normal sinus rhythm, rate of 87, no acute ST segment elevations, nonconcerning intervals.. 22:50 ED course: Additionally regards to the patient's word finding difficulties that have ec2 since resolved, patient would not be a TNK candidate regardless given his Eliquis use.. 23:21 ED course: I discussed case with the radiologist, negative CT scan of the head.. ec2 23:47 ED course: Metabolic profile pertinent for slight hypokalemia with a potassium of 3.3, ec2 some renal dysfunction with a GFR 53. CBC is reassuring without anemia or leukocytosis. . 04/04 00:25 ED course: Chest x-ray dependently reviewed and interpreted by me, shows no acute ec2 intrathoracic process.. ED course: On reassessment patient with no recurrence of symptoms, possible TIA given the patient's reported right arm numbness as well as word finding difficulties that are since resolved. I will admit the patient for further stroke work-up.. 00:34 ED course: Discussed the case with the hospitalist, pending admission.. ec2 04/03 22:50 Order name: Basic Metabolic Panel; Complete Time: 23:47 ec2 04/03 22:50 Order name: CBC with Diff; Complete Time: 23:47 ec2 04/03 22:50 Order name: Troponin HS; Complete Time: 23:47 ec2 04/03 22:50 Order name: Urinalysis w/ reflexes ec2 04/03 22:51 Order name: Glucose, Ancillary Testing; Complete Time: 23:47 EDMS 04/04 06:56 Order name: Glucose, Ancillary Testing EDMS 04/03 22:41 Order name: CT Head Brain wo Cont as6 04/03 22:44 Order name: Ct Stroke Brain Wo Cont EDMS 04/03 22:50 Order name: XRAY Chest (1 view) ec2 04/03 22:50 Order name: EKG; Complete Time: 22:51 ec2 04/04 04:24 Order name: CONS Physician Consult EDMS 04/03 22:50 Order name: Cardiac monitoring; Complete Time: 23:02 ec2 04/03 22:50 Order name: EKG - Nurse/Tech; Complete Time: 22:51 ec2 04/03 22:50 Order name: IV Saline Lock; Complete Time: 22:51 ec2 04/03 22:50 Order name: Labs collected and sent; Complete Time: 23:02 ec2 04/03 22:50 Order name: O2 Per Protocol; Complete Time: 23:02 ec2 04/03 22:50 Order name: O2 Sat Monitoring; Complete Time: 23:02 ec2 Administered Medications: No medications were administered Disposition Summary: 04/04/23 01:16 Hospitalization Ordered Notes: Hospitalization Status: Inpatient Admission ec2 Provider: Nelson Morgan ec2 Condition: Stable ec2 Problem: new ec2 Symptoms: are resolved ec2 Bed/Room Type: Standard ec2 Location: Intensive Care Unit(04/04/23 05:43) cg Room Assignment: 1-(04/04/23 05:43) cg Diagnosis - Transient cerebral ischemic attack, unspecified ec2 Forms: - Medication Reconciliation Form ec2 - SBAR form ec2 - Leadership Thank You Letter ec2 NIH Stroke Scale - NIH Stroke Score Date: 04/03/2023 Time: 22:43 Total Score = 0 10. Dysarthria (speech clarity - read or repeat words) - 0(Normal) 11. Extinction and Inattention (visual/tactile/auditory/spatial/personal) - 0(No abnormality) 1a. Level of Consciousness (LOC) - 0(Alert) 1b. Level of Consciousness (LOC) (Month \T\ Age) - 0(Both) 1c. LOC Commands (Open \T\ Closes Eyes/Weight And Test Bar Clerk) - 0(Both) 2. Best Gaze (Lateral Gaze Paresis) - 0(Normal) 3. Visual Field Loss - 0(No visual loss) 4. Facial Palsy - 0(Normal) 5a. Left Arm: Motor (10-second hold) - 0(No drift) 5b. Right Arm: Motor (10-second hold) - 0(No drift) 6a. Left Leg: Motor (5-second hold - always test supine) - 0(No drift) 6b. Right Leg: Motor (5-second hold - always test supine) - 0(No drift) 7. Limb Ataxia (finger/nose \T\ heel/biggs - test with eyes open) - 0(Absent) 8. Sensory Loss (pinprick arms/legs/face) - 0(Normal) 9. Best Language: Aphasia (description/naming/reading) - 0(No aphasia) Initials: jb4 Signatures: Dispatcher [employer] Sushila Yepez, RN RN cg Lucina Pendleton RN RN ap3 Asif Julian MD MD ec2 Corrections: (The following items were deleted from the chart) 04/03 22:45 22:45 PMHx: TIA; ap3 ap3 22:45 22:45 PMHx: Hypertension; ap3 ap3 22:45 22:45 PMHx: High Cholesterol; ap3 ap3 22:45 22:45 PMHx: GERD; ap3 ap3 22:45 22:45 PMHx: Anxiety; ap3 ap3 04/04 02:32 01:16 Telemetry/MedSurg (Inpatient) ec2 cg 02:32 01:16 ec2 cg 03:32 02:32 cg cg 05:43 02:32 [facility] ER HOLD cg cg 05:43 03:32 ERHOLD- cg cg
--- NOTE | 2023-04-04 04:14 | P.HP ---
Certification for Inpatient Patient admitted to: Inpatient With expected LOS: <2 Midnights Patient will require the following post-hospital care: None Practitioner: I am a practitioner with admitting privileges, knowledge of patient current condition, hospital course, and medical plan of care. Services: Services provided to patient in accordance with Admission requirements found in Title 42 Section 412.3 of the Code of Federal Regulations Patient History Date of Service: 04/04/23 Reason for admission: Hand numbness History of Present Illness: 78-year-old male with past medical history hyperlipidemia, hypertension, GERD, anxiety, CVA, presents to the emergency room with confusion. Reports associated slurred speech, generalized weakness. No reported falls or trauma. No reported fever chills, recent infection, cough or shortness of breath chest pain. Blood pressure on evaluation BP 185 / 81; Pulse 72; Resp 16; Pulse Ox 99% on R/A; plan to admit for TIA, repeat NIH stroke scale 0, laboratory evaluation microcytic anemia 11.1 35.1, WBC RBCs normal no left shift, mild hypokalemia at 3.1, acute kidney injury BUN 12, creatinine 1.36 estimated GFR 53, CT of the brain, chest x-ray Allergies NKDA Allergy (Uncoded 08/05/16 00:18) Unknown No Known Drug Allergies Allergy (Uncoded 10/31/15 21:13) Unknown Home Medications: Atorvastatin Calcium [Lipitor] 80 mg PO 30 MIN BEFORE HS 10/24/15 Pantoprazole Sodium [Protonix] 40 mg PO DAILY 10/24/15 lisinopriL [Lisinopril] 10 mg PO BID* 10/24/15 Ferrous Sulfate [Feosol] 325 mg PO BID #60 tab 10/25/15 - Past Medical/Surgical History Diabetic: No -: HTN, hyperlipidemia, -: TIA - Social History Smoking Status: Never smoker Alcohol use: No CD- Drugs: No Caffeine use: Yes Review of Systems 10-point ROS is otherwise unremarkable Physical Examination - Physical Exam General: Alert, In no apparent distress, Oriented x3 HEENT: Atraumatic, Normocephalic, PERRLA Neck: Supple, 2+ carotid pulse no bruit Respiratory: Clear to auscultation bilaterally, Normal air movement Cardiovascular: No edema, Normal pulses, Regular rate/rhythm Capillary refill: <2 Seconds Gastrointestinal: Normal bowel sounds, Soft and benign Musculoskeletal: No clubbing, No swelling Integumentary: No rashes, No breakdown Neurological: Normal gait, Normal speech, Normal strength at 5/5 x4 extr, Normal tone, Cranial nerves 3-12 intact - Studies Laboratory Data (last 24 hrs) 04/03/23 04/03/23 22:50 22:50 WBC 7.10 Hgb 11.8 L Hct 35.1 L Plt Count 206 Sodium 138 Potassium 3.3 L BUN 12 Creatinine 1.36 H Glucose 108 H Assessment and Plan - Plan Assessment plan TIA Acute kidney injury History of A-fib on Eliquis Hypokalemia Hypertension Hyperlipidemia DVT prophylaxis Assessment plan TIA-hand numbness, slurred speech, resolved, currentIH stroke scale 0, Neurology consult, CT of the head no acute hemorrhage, no focal mass or large territory infarction Acute kidney injury unknown baseline Gentle IV fluids Trend kidney function acute kidney injury BUN 12, creatinine 1.36 History of A-fib on Eliquis Resume metoprolol, resume Eliquis EKG ordered Hypokalemia Trend electrolytes replace as needed mild hypokalemia at 3.1 Microcytic anemia icrocytic anemia 11.1 35.1 Trend H&H Hypertension Hyperlipidemia Resume appropriate home meds BP 185 / 81; Pulse 72; Resp 16; Pulse Ox 99% on R/A; Full code Diet cardiac DVT prophylaxis Discharge Plan: Home Plan to discharge in: 48 Hours - Advance Directives Does patient have a Living Will: No Does patient have a Durable POA for Healthcare: No - Code Status/Comfort Care Code Status: Full Code Physician Review: Patient Assessed, Agree with Above Assessment and Plan Critical Care: No Time Spent Managing Pts Care (In Minutes): 50
[2023-04-04] MEDS ORDERED: NA CHLORIDE 0.9% 1,000 ML IV SCH (05:00)
[2023-04-04] MEDS ORDERED: METOPROLOL TARTRATE 5 MG/5 ML INJ IV PRN (05:32)
[2023-04-04] MEDS ORDERED: NA CHLORIDE 0.9% 1,000 ML ONE (05:33)
[2023-04-04] MEDS: INSULIN REGULAR (HUMAN) 100 UNIT/ML SQ SCH ×2 (06:00→12:00)
[2023-04-04] MEDS ORDERED: METOPROLOL TAR 25 MG TAB PO SCH (06:00)
[2023-04-04 07:23] VITALS: O2SAT 98
[2023-04-04 07:38] VITALS: BMI 24.7
--- NOTE | 2023-04-04 08:43 | RAD REPORT ---
EXAM DESCRIPTION: MRI - Brain Wo Cont - 04/04/2023 8:28 am CLINICAL HISTORY: Right sided numbness/aphasia/headache Headache, drowsiness COMPARISON: Ct Stroke Brain Wo Cont dated 04/03/2023 TECHNIQUE: Multi-sequence, multiplanar MR imaging of the brain was performed without contrast. FINDINGS: No intracranial hemorrhage, hydrocephalus or extra-axial fluid collections.Polf-ds-fetstrg e confluent T2/FLAIR hyperintensity in the periventricular and deep white matter is present compatibl e with chronic microvascular ischemic changes. No edema or shift of midline structures. No findings t o suspect brain mass. DWI is negative for acute CVA. Midline structures are normally formed. Mastoid air cells and paranasal sinuses are clear. IMPRESSION: Negative for acute CVA or other acute intracranial process.
[2023-04-04] MEDS ORDERED: APIXABAN 5 MG TABLET PO SCH (09:00)
[2023-04-04] MEDS ORDERED: ASPIRIN EC 81 MG TAB PO SCH (09:00)
--- NOTE | 2023-04-04 11:32 | RAD REPORT ---
EXAM DESCRIPTION: CT Head Without Intravenous Contrast CLINICAL HISTORY: STROKE ALERT TECHNIQUE: Axial computed tomography images of the head/brain without intravenous contrast. Sagitt al and coronal reformatted images were created and reviewed. This CT exam was performed using one o r more of the following dose reduction techniques: automated exposure control, adjustment of the mA and/or kV according to patient size, and/or use of iterative reconstruction technique. COMPARISON: CT Head dated 07/12/2017 FINDINGS: Brain: Mild cerebral atrophy and patchy bilateral periventricular and subcortical white matter low-attenuation most compatible with chronic microvascular angiopathy slightly progressed from the prior. CSF density focus at the inferior aspect of the right basal ganglia which may represent a remote lacunar infarct versus prominent perivascular space more conspicuous on the current study. No hemorrhage. Ventricles: Unremarkable. No ventriculomegaly. Bones/joints: Unremarkable. No acute fracture. Soft tissues: Unremarkable. Vasculature: There is atherosclerotic disease of the internal carotid arteries bilaterally. Sinuses: Mild bilateral ethmoid, mild to moderate left and mild right maxillary sinus mucosal thick ening. Mastoid air cells: Unremarkable as visualized. No mastoid effusion. IMPRESSION: 1. No acute hemorrhage, focal mass or large territory infarction. 2. Other findings as above. CODE STROKE PROTOCOL CONFERENCE CALL: The findings were verbally discussed via telephone conference w wendy Julian on 04/03/2023 11:08 PM CDT. The results were acknowledged and understood. Electronically signed by: Walt Edwards MD 04/03/2023 11:09 PM CDT Due to temporary technical issues with the PACS/Fluency reporting system, reports are being signed by the in house radiologists without review as a courtesy to insure prompt reporting. The interpreting radiologist is fully responsible for the content of the report.
--- NOTE | 2023-04-04 11:41 | RAD REPORT ---
EXAM DESCRIPTION: XR Chest, 1 View CLINICAL HISTORY: The patient is 78 years old and is Male; COPD TECHNIQUE: Frontal view of the chest. COMPARISON: No relevant prior studies available. FINDINGS: Lungs: Unremarkable. No consolidation. Pleural space: Unremarkable. No pneumothorax. Heart: Unremarkable. Mediastinum: Unremarkable. Bones/joints: No acute findings. IMPRESSION: No acute findings in the chest. Electronically signed by: Homar Deng MD 04/03/2023 11:45 PM CDT Due to temporary technical issues with the PACS/Fluency reporting system, reports are being signed by the in house radiologists without review as a courtesy to insure prompt reporting. The interpreting radiologist is fully responsible for the content of the report.
--- NOTE | 2023-04-04 12:24 | EKG ---
Test Date: 2023-04-03 Test Time: 22:37:26 Logger: MEASUREMENT RESULTS: Intervals: Rate: 87 OH: 170 QRSD: 70 QT: 378 QTc: 454 [place]: P: 45 OH: 170 QRS: 44 T: 44 INTERPRETIVE STATEMENTS: Normal sinus rhythm Nonspecific ST and T wave abnormality Abnormal ECG Compared to ECG 12/23/2017 19:26:14 ST (T wave) deviation now present T-wave abnormality no longer present Electronically Signed On 04-04-23 12:23:13 CDT by Loc Mtaa
[2023-04-04 12:25] VITALS: BP 123/70; TEMP 98.3
--- NOTE | 2023-04-04 13:36 | ECHO ---
HEIGHT: 5 ft 6 in WEIGHT: 153 lb 0.013 oz DATE OF STUDY: 04/04/[address]: Ilda Zheng BANKING PIN ADJUSTER-Col[place] 2-DIMENSIONAL: YES M.MODE: YES DOPPLER: YES COLOR FLOW: YES TDS: PORTABLE: YES DEFINITY: BUBBLE STUDY: DIAGNOSIS: STROKE CARDIAC HISTORY: CATHERIZATION: SURGERY: PROSTHETIC VALVE: PACEMAKER: MEASUREMENTS (cm) DIASTOLIC (NORMALS) SYSTOLIC (NORMALS) IVSd 1.1 (0.6-1.2) LA Diam 3.5 (1.9-4.0) LVEF 68% LVIDd 3.3 (3.5-5.7) LVIDs 2.1 (2.0-3.5) %FS 37% LVPWd 1.0 (0.6-1.2) Ao Diam 2.9 (2.0-3.7) 2 DIMENSIONAL ASSESSMENT: RIGHT ATRIUM: NORMAL LEFT ATRIUM: NORMAL RIGHT VENTRICLE: NORMAL LEFT VENTRICLE: NORMAL TRICUSPID VALVE: MILD TRICUSPID REGURGITATION MITRAL VALVE: MILD MITRAL REGURGITATION PULMONIC VALVE: MILD PULMONIC INSUFFICIENCY AORTIC VALVE: CALCIFIED AORTIC VALVE, NO AORTIC STENOSIS PERICARDIAL EFFUSION: NONE AORTIC ROOT: NORMAL LEFT VENTRICULAR WALL MOTION: NORMAL DOPPLER/COLOR FLOW: SEE BELOW COMMENTS: 1. NORMAL LEFT VENTRICULAR EJECTION FRACTION 60-65% WITH NORMAL WALL MOTION 2. GRADE I DIASTOLIC DYSFUNCTION 3. MILD MITRAL REGURGITATION, AORTIC INSUFFICIENCY, TRICUSPID REGURGITATION, PULMONIC INSUFFICIENCY TECHNOLOGIST: MAVIS PENDLETON
[2023-04-04] MEDS ORDERED: ATORVASTATIN 80 MG TAB PO SCH (20:30)
== END 2023-04-04 14:51 | disposition home or self-care (01) ==
LOC: ER 22:24 → ERHOLD 04-04 04:20 → 3RD-ICU 04-04 05:49 → 4TH 04-04 11:26
PROVIDERS: ADMIT Hospitalist; ATTEND Hospitalist
DX: G45.9 Transient cerebral ischemic attack, unspecified (principal); R20.0 Anesthesia of skin; R47.81 Slurred speech; R53.1 Weakness; R29.700 NIHSS score 0; E78.5 Hyperlipidemia, unspecified; I10 Essential (primary) hypertension; K21.9 Gastro-esophageal reflux disease without esophagitis; F41.9 Anxiety disorder, unspecified; R41.0 Disorientation, unspecified; N17.9 Acute kidney failure, unspecified; I48.11 Longstanding persistent atrial fibrillation; D64.9 Anemia, unspecified; Z86.73 Personal history of transient ischemic attack (TIA), and cerebral infarction without residual deficits; Z79.01 Long term (current) use of anticoagulants
CPT/HCPCS: 36415; 70450; 70551; 71045; 80048; 82947; 84484; 85025; 92523; 93005; 93306; 99285; G0378; J7030

== ENCOUNTER 2023-11-12 20:28 | Emergency (ER) | payer OTHER ==
[2023-11-12] MEDS ORDERED: cloNIDine HCL 0.1 MG TAB ONE (21:01)
[2023-11-12 21:28] LABS: Absolute Eosinophils 0.1 K/uL (0-0.5); Absolute Monocytes 0.6 K/uL (0.1-1.3); Absolute Neutrophil 4.6 K/uL (1.8-8.0); Basophils % 0.6 % (0-1.3); Eosinophils % 0.9 % (0-4.4); Hematocrit 36.5 % (39.6-49.0); Hemoglobin 12.3 g/dL (13.6-17.9); Lymphocytes % 16.1 % (15.3-44.8); MCHC 33.6 g/dL (32.0-36.0); MCV 83.2 fL (80-100); MPV 7.6 fL (7.6-11.3); Monocytes % 8.8 % (3.3-12.3); Neutrophils % 73.6 % (41.7-73.7); Platelets 209 thou/uL (152-406); RBC Red Blood Cell Count 4.38 M/uL (4.33-5.43); Red Cell Distribution Width 21.5 % (12.1-15.2)
[2023-11-12 21:34] LABS: PT Prothrombin Time 14.2 SECONDS (9.5-12.5); Protime INR 1.3
--- NOTE | 2023-11-12 21:36 | RAD REPORT ---
EXAM DESCRIPTION: RAD - Chest Single View - 11/12/2023 9:29 pm CLINICAL HISTORY: CHEST PAIN COMPARISON: Chest Single View dated 04/03/2023; Abdomen Acute Series dated 12/18/2017; Chest Single Vi ew dated 08/17/2017; Chest Single View dated 07/12/2017 FINDINGS: Lines: None. Lungs: No evidence of edema or pneumonia. Pleural: No significant pleural effusions or pneumothorax. Cardiac: The heart size is within normal limits. Mediastinum: Within normal limits. Bones: No acute fractures. Other: None IMPRESSION: No acute cardiopulmonary disease.
[2023-11-12 21:56] LABS: ALT/SGPT 24 U/L (16-61); AST/SGOT 14 U/L (15-37); Albumin 3.5 g/dL (3.4-5.0); Albumin/Globulin Ratio 0.9 (1.1-1.8); Alkaline Phosphatase 94 U/L (45-117); BUN Blood Urea Nitrogen 17 mg/dL (7-18); Bicarbonate 27 mEq/L (21-32); Bilirubin Total 0.4 mg/dL (0.2-1.0); Glomerular Filtration Rate 60 ml/min (=/>90); Glucose Level 115 mg/dL (74-106); Magnesium 1.9 mg/dL (1.6-2.4); NT PRO-BNP 136 pg/mL (<450); Protein, Total 7.5 g/dL (6.4-8.2); Sodium Level 134 mEq/L (136-145); Troponin High Sensitivity 11.2 pg/mL (<58.9)
[2023-11-12 21:58] LABS: Bilirubin Direct < 0.2 mg/dL (0-0.2); Bilirubin Indirect, Calculated 0.2 mg/dL (0.2-0.8)
[2023-11-12 22:09] LABS: Anisocytosis 1+; Blood Morphology Comment NOTED (NOT SEEN); Platelet Estimate ADEQ; White Blood Cell Scan OK (OK)
--- NOTE | 2023-11-12 22:24 | EDPHYS ---
Physician Documentation [facility] Name: Estiven Pena Age: 78 yrs Sex: Male : 1945 Arrival Date: 11/12/2023 Time: : Bed 14 Private MD: ED Physician Asif Julian HPI: 11/11 20:53 This 78 yrs old Male presents to ER via Ambulatory with complaints of high sb4 blood pressure. 20:54 patient states he was finishing up work this evening when he started feeling dizzy, sb4 hot, and like he was shaking. he states he gets this way when his BP is elevated. he denies any headache, blurry vision, chest pain, nausea, vomiting. reports history of hypertension and afib in which he takes metoprolol, lisinopril, and eliquis. denies any recent changes in his mediation. States he checks his BP twice daily and it has been relatively controlled. Historical: - Allergies: 20:40 NKDA; jj7 - PMHx: 20:40 Hypertensive disorder; Hypercholesterolemia; Atrial fibrillation; Anemia; jj7 20:46 Anxiety; jj7 - PSHx: 20:40 COLON RESECTION; jj7 - Immunization history:: Client reports having NOT received the Covid vaccine. Flu vaccine is up to date. - Infectious Disease History:: Denies. - Social history:: Smoking status: Patient denies any tobacco usage or history of. Patient/guardian denies using alcohol, street drugs, IV drugs. ROS: 20:57 Respiratory: Negative for shortness of breath, cough, wheezing, and pleuritic chest sb4 pain, 20:57 Cardiovascular: Negative for chest pain, 20:57 Neuro: Positive for dizziness, 20:57 All other systems are negative, Exam: 20:57 Head/Face: Normocephalic, atraumatic. Eyes: Extra-ocular motions intact. Periorbital sb4 areas with no swelling, redness, or edema. ENT: Mucous membranes moist. Cardiovascular: Regular rate and rhythm with a normal S1 and S2. Respiratory: Lungs have equal breath sounds bilaterally, clear to auscultation and percussion. No rales, rhonchi or wheezes noted. No increased work of breathing, no retractions or nasal flaring. Abdomen/GI: Soft, non-tender, no distension. Skin: Warm, dry with normal turgor. Normal color with no rashes, no lesions, and no evidence of cellulitis. MS/ Extremity: Pulses equal, no cyanosis. Neurovascular intact. Full, normal range of motion. Neuro: Awake and alert, GCS 15, oriented to person, place, time, and situation. Motor strength 5/5 in all extremities. Sensory grossly intact. 20:57 Constitutional: The patient appears alert, awake, anxious, Vital Signs: 20:36 BP 182 / 91; Pulse 66; Resp 18; Temp 98.2; Pulse Ox 96% ; Weight 68.04 kg; Height 5 ft. jj7 6 in. ; Pain 0/10; 20:50 BP 202 / 101; Pulse 69; Resp 16 S; Pulse Ox 98% on R/A; jw7 20:55 BP 188 / 85; Pulse 68; Resp 17 S; Pulse Ox 98% on R/A; jw7 21:00 BP 173 / 80; Pulse 58; Resp 17 S; Pulse Ox 97% on R/A; jw7 21:30 BP 151 / 77; Pulse 62; Resp 18 S; Pulse Ox 96% on R/A; jw7 22:00 BP 156 / 82; Pulse 58; Resp 15 S; Pulse Ox 96% on R/A; jw7 23:00 BP 157 / 78; Pulse 57; Resp 16 S; Pulse Ox 98% on R/A; jw7 20:36 Body Mass Index 24.21 (68.04 kg, 167.64 cm) [facility] 20:36 Pain Scale: [facility] MDM: 20:40 Patient medically screened. sb4 22:22 Data reviewed: vital signs, nurses notes, lab test result(s), EKG, radiologic studies, sb4 and as a result, I will discharge patient. Care significantly affected by the following chronic conditions: Hypertension. Counseling: I had a detailed discussion with the patient and/or guardian regarding the historical points, exam findings, and any diagnostic results supporting the discharge/admit diagnosis, lab results, radiology results, the need for outpatient follow up, a wound care physician, to return to the emergency department if symptoms worsen or persist or if there are any questions or concerns that arise at home. 11/11 20:53 Order name: Basic Metabolic Panel; Complete Time: 21:58 sb4 11/11 20:53 Order name: CBC with Diff; Complete Time: 22:12 sb4 11/11 20:53 Order name: LFT's; Complete Time: 21:58 sb4 11/11 20:53 Order name: Magnesium; Complete Time: 21:58 sb4 11/11 20:53 Order name: NT PRO-BNP; Complete Time: 21:58 sb4 11/11 20:53 Order name: PT-INR; Complete Time: 21:36 sb4 11/11 20:53 Order name: Troponin HS; Complete Time: 21:58 sb4 11/11 21:41 Order name: CBC Smear Scan; Complete Time: 22:12 EDMS 11/11 20:53 Order name: XRAY Chest (1 view); Complete Time: 21:39 sb4 11/11 20:53 Order name: EKG; Complete Time: 20:54 sb4 11/11 20:53 Order name: Cardiac monitoring; Complete Time: 21:10 sb4 11/11 20:53 Order name: EKG - Nurse/Tech; Complete Time: 21:42 sb4 11/11 20:53 Order name: IV Saline Lock; Complete Time: 21:42 sb4 11/11 20:53 Order name: Labs collected and sent; Complete Time: 21:42 sb4 11/11 20:53 Order name: O2 Per Protocol; Complete Time: 21:10 sb4 11/11 20:53 Order name: O2 Sat Monitoring; Complete Time: 21:10 sb4 EC:35 Rate is 60 beats/min. Rhythm is regular, Normal Sinus Rhythm. [place] interval is normal at sb4 170 msec. QRS interval is normal at 74 msec. QT interval is normal at 442 msec. No Q waves. T waves are Normal. Clinical impression: No evidence of ischemia. Interpreted by me. Reviewed by me. Administered Medications: 22:22 Not Given (Physician Discretion): clonidine0.1 mg PO once sb4 Disposition Summary: 11/12/23 22:23 Discharge Ordered Notes: Location: Home sb4 Problem: new sb4 Symptoms: have improved sb4 Condition: Stable sb4 Diagnosis - Essential (primary) hypertension sb4 - Anxiety disorder, unspecified sb4 Followup: sb4 - With: Loc Mata MD - When: 2 - 3 days - Reason: Recheck today's complaints, Re-evaluation by your physician Discharge Instructions: - Discharge Summary Sheet sb4 - Hypertension, Adult, [id number] sb4 - How to Take Your Blood Pressure, [id number] sb4 Forms: - Patient Portal Instructions sb4 - Leadership Thank You Letter sb4 Addendum: 11/13/2023 23:44 I was immediately available for consultation during this patient's visit. I did not e c2 personally see the patient or discuss the patient with the JOO. . Signatures: Dispatcher [employer] Edu Burton RN RN jj7 Franci Winter PA-C PAVicky sb4 Asif Julian MD MD ec2 Corrections: (The following items were deleted from the chart) 11/11 20:58 20:54 Constitutional: sb4 sb4
--- NOTE | 2023-11-12 22:24 | ER ---
Nurse's Notes [facility] Name: Estiven Pena Age: 78 yrs Sex: Male : 1945 Arrival Date: 11/12/2023 Time: 20:28 Bed 14 Private MD: Diagnosis: Essential (primary) hypertension;Anxiety disorder, unspecified Presentation: 11/11 20:36 Chief complaint: Patient states: SHAKY AND CHILLS STARTED \T\1944. STATES LIKE HE FELT jj7 LIKE HE WAS GOING TO FAINT. Coronavirus screen: At this time, the client does not indicate any symptoms associated with coronavirus-19. Ebola Screen: No symptoms or risks identified at this time. Initial Sepsis Screen: Does the patient meet any 2 criteria? No. Patient's initial sepsis screen is negative. Does the patient have a suspected source of infection? No. Patient's initial sepsis screen is negative. Risk Assessment: Do you want to hurt yourself or someone else? Patient reports no desire to harm self or others. Note ASA. Onset of symptoms was November 12, 2023. 20:36 Method Of Arrival: Ambulatory [facility] 20:36 Acuity: ZANA 3 jj7 Triage Assessment: 20:40 General: Appears in no apparent distress. comfortable, Behavior is calm, cooperative, jj7 appropriate for age. Pain: Denies pain. Neuro: No deficits noted. Reports [place]. Cardiovascular: No deficits noted. Historical: - Allergies: 20:40 NKDA; jj7 - PMHx: 20:40 Hypertensive disorder; Hypercholesterolemia; Atrial fibrillation; Anemia; jj7 20:46 Anxiety; jj7 - PSHx: 20:40 COLON RESECTION; jj7 - Immunization history:: Client reports having NOT received the Covid vaccine. Flu vaccine is up to date. - Infectious Disease History:: Denies. - Social history:: Smoking status: Patient denies any tobacco usage or history of. Patient/guardian denies using alcohol, street drugs, IV drugs. Screenin:45 [facility] ED Fall Risk Assessment (Adult) History of falling in the last 3 months, jj7 including since admission No falls in past 3 months (0 pts) Confusion or Disorientation No (0 pts) Intoxicated or Sedated No (0 pts) Impaired Gait No (0 pts) Mobility Assist Device Used No (0 pt) Altered Elimination No (0 pt) Score/Fall Risk Level 0 - 2 = Low Risk Oriented to surroundings, Maintained a safe environment, Educated pt \T\ family on fall prevention, incl call for assistance when getting out of bed. Abuse screen: Denies threats or abuse. Nutritional screening: No deficits noted. Tuberculosis screening: No symptoms or risk factors identified. Assessment: 20:50 General: Appears in no apparent distress. comfortable, Behavior is calm, cooperative, jw7 appropriate for age. 20:50 Pain: Denies pain. Neuro: Level of Consciousness is awake, alert, obeys commands, jw7 Oriented to person, place, time, situation, Appropriate for age. Cardiovascular: Heart tones S1 S2 present Capillary refill < 3 seconds Clubbing of nail beds is absent JVD is absent Patient's skin is warm and dry. Respiratory: Airway is patent Trachea midline Respiratory effort is even, unlabored, Respiratory pattern is regular, symmetrical, Breath sounds are clear bilaterally. GI: Abdomen is round non-distended, Bowel sounds present X 4 quads. Abd is soft and non tender X 4 quads. : No deficits noted. No signs and/or symptoms were reported regarding the genitourinary system. EENT: No deficits noted. No signs and/or symptoms were reported regarding the EENT system. Derm: Skin is intact, is healthy with good turgor, Skin is dry, Skin is normal, Skin temperature is warm. Musculoskeletal: Circulation, motion, and sensation intact. Range of motion: intact in all extremities. 22:00 Reassessment: Patient appears in no apparent distress at this time. No changes from jw7 previously documented assessment. Patient and/or family updated on plan of care and expected duration. Pain level reassessed. Patient is alert, oriented x 3, equal unlabored respirations, skin warm/dry/pink. 23:06 Reassessment: Patient appears in no apparent distress at this time. No changes from jw7 previously documented assessment. Patient and/or family updated on plan of care and expected duration. Pain level reassessed. Patient is alert, oriented x 3, equal unlabored respirations, skin warm/dry/pink. Vital Signs: 20:36 BP 182 / 91; Pulse 66; Resp 18; Temp 98.2; Pulse Ox 96% ; Weight 68.04 kg; Height 5 ft. jj7 6 in. ; Pain 0/10; 20:50 BP 202 / 101; Pulse 69; Resp 16 S; Pulse Ox 98% on R/A; jw7 20:55 BP 188 / 85; Pulse 68; Resp 17 S; Pulse Ox 98% on R/A; jw7 21:00 BP 173 / 80; Pulse 58; Resp 17 S; Pulse Ox 97% on R/A; jw7 21:30 BP 151 / 77; Pulse 62; Resp 18 S; Pulse Ox 96% on R/A; jw7 22:00 BP 156 / 82; Pulse 58; Resp 15 S; Pulse Ox 96% on R/A; jw7 23:00 BP 157 / 78; Pulse 57; Resp 16 S; Pulse Ox 98% on R/A; jw7 20:36 Body Mass Index 24.21 (68.04 kg, 167.64 cm) jj7 20:36 Pain Scale: Adult [facility] ED Course: 20:31 Patient arrived in ED. jj6 20:33 Franci Winter PA-C is PHCP. sb4 20:33 Asif Julian MD is Attending Physician. sb4 20:40 Triage completed. jj7 20:40 Arm band placed on left wrist. jj7 20:45 Patient has correct armband on for positive identification. j7 20:56 Rakel Segal, RN is Primary Nurse. jw7 21:00 Provided Education on: Use of Call Light. jw7 21:00 Initial lab(s) drawn, by sc, sent to lab. Inserted saline lock: 20 gauge in left [facility] forearm, using aseptic technique. Blood collected. 21:31 XRAY Chest (1 view) In Process Unspecified. EDMS 22:17 No provider procedures requiring assistance completed. jw7 22:23 Loc Mata MD is Referral Physician. sb4 23:08 IV discontinued, intact, bleeding controlled, No redness/swelling at site. Pressure jw7 dressing applied. Administered Medications: 22:22 Not Given (Physician Discretion): clonidine0.1 mg PO once sb4 Medication: 22:17 VIS not applicable for this client. jw7 Outcome: 22:23 Discharge ordered by . sb4 23:07 Discharged to home ambulatory, jw7 23:07 Condition: stable 23:07 Discharge instructions given to patient, Instructed on discharge instructions, follow up and referral plans. Demonstrated understanding of instructions, follow-up care, 23:08 Patient left the ED. jw7 Signatures: Dispatcher [employer] EDEda Juan jj6 Rakel Segal RN RN jw7 Edu Thorne RN RN jj7 Franci Winter PA-C PA-C sb4
[2023-11-12 23:53] VITALS: BP 157/78; TEMP 98.2; O2SAT 98
--- NOTE | 2023-11-13 14:11 | EKG ---
Test Date: 2023-11-12 Test Time: 21:30:59 Rv Repairer: TL MEASUREMENT RESULTS: Intervals: Rate: 60 OK: 170 QRSD: 74 QT: 442 QTc: 442 Martin: P: 57 OK: 170 QRS: 39 T: 42 INTERPRETIVE STATEMENTS: Normal sinus rhythm Nonspecific ST abnormality Abnormal ECG Compared to ECG 04/03/2023 22:37:26 No significant changes Electronically Signed On 11-13-23 14:09:53 CDT by Loc Mata
== END 2023-11-12 23:08 | disposition home or self-care (01) ==
LOC: ER 20:28
DX: I10 Essential (primary) hypertension (principal); F41.9 Anxiety disorder, unspecified; I48.91 Unspecified atrial fibrillation; Z79.01 Long term (current) use of anticoagulants
CPT/HCPCS: 36415; 71045; 80048; 80076; 83735; 83880; 84484; 85025; 85610; 93005; 99284